=== PATIENT | male | born 1990 | race Caucasian/White ===

== ENCOUNTER 2016-10-07 12:19 | Emergency (ER) | payer OTHER ==
[2016-10-07 12:27] VITALS: BP 152/95; PULSE 113; RESP 20; TEMP 99.1; O2SAT 98
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
== END 2016-10-07 14:46 | disposition home or self-care (01) ==
LOC: CED 12:19
DX: G89.18 Other acute postprocedural pain (principal); M79.604 Pain in right leg; F17.200 Nicotine dependence, unspecified, uncomplicated
CPT/HCPCS: 93971-PO

== ENCOUNTER 2016-10-13 18:17 | Emergency (ER) | payer OTHER | END 2016-10-13 18:25 | disposition left against medical advice (07) | LOC: CED 18:17 | DX: Z53.21 Procedure and treatment not carried out due to patient leaving prior to being seen by health care provider (principal) ==

== ENCOUNTER 2017-08-08 02:43 | Observation (INO) | payer OTHER, MEDICAID ==
[2017-08-08 03:18] LABS: PLATELET COUNT 311 10^3/uL (150-400)
[2017-08-08] MEDS: NS 1,000 ML IV SCH (04:28)
--- NOTE | 2017-08-08 06:05 | EDPHY ---
H & P Stated Complaint: SELF INFLICTED LACS TO L FA X 4 DEEP Time Seen by Provider: 08/08/17 02:55 HPI/ROS: HPI The patient presents with self-inflicted lacerations to left forearm which occurred about 30 min prior to arrival. The patient cut himself 5 times with what is described as a non serrated knife. He did this because he wanted to "save himself". He has sustained several deep lacerations that are bleeding, family suspects he lost about 500 mL of blood prior to arrival. He currently denies any numbness, tingling of his hand. He does say it is difficult to flex his wrist and requires a lot of effort. His family reports that they believe he is currently suffering from psychosis related to his underlying schizoaffective disorder and provoked by marijuana use. He has a history of cutting previously under similar circumstances. He has been hospitalized at the [facility] previously. He resided at [facility] for several weeks in the past. He currently is receiving ECT. The patient denies any suicidality or homicidality. REVIEW OF SYSTEMS Constitutional: No fever, no chills. Eyes: No discharge. ENT: No sore throat. Cardiovascular: No chest pain, no palpitations. Respiratory: No cough, no shortness of breath. Gastrointestinal: No abdominal pain, no vomiting. Genitourinary: No hematuria. Musculoskeletal: No back pain. Skin: No rashes. Neurological: No headache. PMHx: Schizoaffective disorder, bipolar type, receiving ECT Soc Hx: Lives at home with his parents PHYSICAL General Appearance: Alert, no distress Eyes: Pupils equal and round no pallor or injection ENT, Mouth: Mucous membranes moist Respiratory: There are no retractions, lungs are clear to auscultation Cardiovascular: Regular rate and rhythm, 2+ radial and ulnar pulses on the left Gastrointestinal: Abdomen is soft and non-tender, no masses, bowel sounds normal Neurological: A&O, there is sensation intact to light touch throughout all of his digits on the left, strength is full in ulnar, median, radial nerve distributions Skin: Warm and dry, no rashes Musculoskeletal: Neck is supple non tender Extremities: Left forearm flexor surface with 5 transverse laceration, 1 involving multiple flexor tendon complete lacerations, 2 involving the fascial layer and muscle bellies, there is limited flexion at the wrist Psychiatric: Patient is oriented X 3, there is no agitation Source: Patient, Family Exam Limitations: No limitations - Personal History Current Tetanus Diphtheria and Acellular Pertussis (TDAP): Yes Tetanus Vaccine Date: < 10 YEARS - Medical/Surgical History Hx Asthma: No Hx Chronic Respiratory Disease: No Hx Diabetes: No Hx Cardiac Disease: No Hx Renal Disease: No Hx Cirrhosis: No Hx Alcoholism: No Hx HIV/AIDS: No Hx Splenectomy or Spleen Trauma: No Other PMH: BIPOLAR DO, SCHIZOAFFECTIVE, SX R TIB FIB 2017 - Social History Smoking Status: Current every day smoker Constitutional: Initial Vital Signs Temperature (C) 36.3 C 08/08/17 03:02 Heart Rate 71 08/08/17 03:02 Respiratory Rate 16 08/08/17 03:02 Blood Pressure 157/96 H 08/08/17 03:02 O2 Sat (%) 98 08/08/17 03:02 O2 Delivery Mode Room Air Allergies/Adverse Reactions: ketamine Allergy (Verified 06/15/17 10:32) nausea/vomiting morphine Allergy (Verified 06/15/17 10:32) psychosis oxycodone Allergy (Verified 06/15/17 10:32) psychosis Home Medications: Medication Instructions Recorded LaMICtal 300 mg PO DAILY 10/07/16 [place] Carbonate 1,350 mg PO DAILY AT 6PM 10/07/16 Loxapine 50 mg PO HS 10/07/16 Folate 1 tab PO DAILY 06/12/17 Medical Decision Making Differential Diagnosis: This is a 26-year-old male with history of schizoaffective disorder, bipolar type, currently receiving ECT in on medication who presents with what appears to be psychosis in the setting of marijuana use, subsequently cutting his left forearm multiple times causing significant trauma, with flexor tendon lacerations and facial injuries. He does appear to be neurovascularly intact. His limited strength of wrist flexion seems to be due to flexor tendon injury. I examined the patient on arrival to the emergency department. A pressure dressing was applied. He did have some blood oozing from his 2 most proximal lacerations which improved after the dressing was placed. Given the involvement of the flexor tendons in the extensive surface area of these lacerations, I initially discussed the case with Dr. Lurdes Phillip of Trauma surgery. She recommends consult with Orthopedics. I consulted with Dr. Harry the orthopedist pinion staker. He is able to take the patient to the OR later today. He recommends that we apply a dressing and give the patient Ancef. It would be difficult to irrigate these wounds in the emergency department and provide adequate anesthesia given their size. He will take the patient on his service. I have placed the patient on an M1 hold. I have explained this to the patient and his parents. He will need to go to the ICU for observation given his M1 hold. Parents feel strongly that he be admitted to [facility]. He has received excellent care there before and is very comfortable there. They would prefer that he does not have to go to [facility] as he is not always had a positive experience there. - Data Points Laboratory Results: Laboratory Results 08/08/17 02:56 08/08/17 02:56 08/08/17 08/08/17 08/08/17 02:56 02:56 02:56 WBC 11.58 10^3/uL H 10^3/uL (3.80-9.50) RBC 4.93 10^6/uL 10^6/uL (4.40-6.38) Hgb 14.7 g/dL g/dL (13.7-17.5) Hct 43.2 % % (40.0-51.0) MCV 87.6 fL fL (81.5-99.8) MCH 29.8 pg pg (27.9-34.1) MCHC 34.0 g/dL g/dL (32.4-36.7) RDW 13.2 % % (11.5-15.2) Plt Count 311 10^3/uL 10^3/uL (150-400) MPV 10.1 fL fL (8.7-11.7) Neut % (Auto) 75.7 % H % (39.3-74.2) Lymph % (Auto) 15.6 % % (15.0-45.0) [place] % (Auto) 7.0 % % (4.5-13.0) Eos % (Auto) 0.8 % % (0.6-7.6) Baso % (Auto) 0.3 % % (0.3-1.7) Nucleat RBC Rel Count 0.0 % % (0.0-0.2) Absolute Neuts (auto) 8.76 10^3/uL H 10^3/uL (1.70-6.50) Absolute Lymphs (auto) 1.81 10^3/uL 10^3/uL (1.00-3.00) Absolute Monos (auto) 0.81 10^3/uL H 10^3/uL (0.30-0.80) Absolute Eos (auto) 0.09 10^3/uL 10^3/uL (0.03-0.40) Absolute Basos (auto) 0.04 10^3/uL 10^3/uL (0.02-0.10) Absolute Nucleated RBC 0.00 10^3/uL 10^3/uL (0-0.01) Immature Gran % 0.6 % % (0.0-1.1) Immature Gran # 0.07 10^3/uL 10^3/uL (0.00-0.10) Sodium 141 mEq/L mEq/L (135-145) Potassium 3.9 mEq/L mEq/L (3.5-5.2) Chloride 103 mEq/L mEq/L (97-110) Carbon Dioxide 23 mEq/l mEq/l (22-31) Anion Gap 15 mEq/L mEq/L (8-16) BUN 13 mg/dL mg/dL (7-23) Creatinine 0.8 mg/dL mg/dL (0.7-1.3) Estimated GFR > 60 Glucose 91 mg/dL mg/dL (70-100) Calcium 10.4 mg/dL mg/dL (8.5-10.4) Total Bilirubin 0.5 mg/dL mg/dL (0.1-1.4) AST 25 IU/L IU/L (17-59) ALT 43 IU/L IU/L (21-72) Alkaline Phosphatase 161 IU/L H IU/L (38-126) Total Protein 7.7 g/dL g/dL (6.3-8.2) Albumin 5.0 g/dL g/dL (3.5-5.0) [place] 1.0 mEq/L mEq/L (0.6-1.2) Ethyl Alcohol < 10 mg/dL mg/dL (0-10) Patient ABO/Rh A NEGATIVE Antibody Screen NEGATIVE Medications Given: Sodium Chloride (Ns) 1,000 mls @ 125 mls/hr IV CONT OSEAS Stop: 02/04/18 04:14 Last Admin: 08/08/17 04:28 Dose: 1,000 mls Discontinued Medications Cefazolin Sodium/Dextrose (Ancef 1 Gm (Premix)) 50 mls @ 200 mls/hr IV EDNOW ONE PRN Reason: Protocol Stop: 08/08/17 04:04 Last Admin: 08/08/17 04:20 Dose: 50 mls Departure - Departure Disposition: [facility] Inpatient Acute Clinical Impression: Acute psychosis, Self-inflicted injury, Marijuana abuse Forearm laceration involving tendon Qualifiers: Encounter type: initial encounter Laterality: left Qualified Code(s): S51.812A - Laceration without foreign body of left forearm, initial encounter; S56.922A - Laceration of unspecified muscles, fascia and tendons at forearm level, left arm, initial encounter; S56.922A - Laceration of unspecified muscles, fascia and tendons at forearm level, left arm, initial encounter Condition: Fair
[2017-08-08] MEDS ORDERED: KETOROLAC 30 MG/1 ML SDV IVP PRN (08:14)
[2017-08-08] MEDS ORDERED: ONDANSETRON 4 MG/2 ML VIAL IVP PRN ×2 (08:27→18:54)
[2017-08-08] MEDS ORDERED: ONDANSETRON DISINTEGRATING 4 MG TAB PO PRN (08:27)
[2017-08-08] MEDS ORDERED: HYDROmorphONE/DILAUDID 1 MG/ML INJ IVP PRN (08:27)
[2017-08-08] MEDS ORDERED: ACETAMINOPHEN 325 MG TAB PO PRN (08:27)
[2017-08-08] MEDS ORDERED: LR 1,000 ML IV SCH (08:30)
--- NOTE | 2017-08-08 15:42 | ASMTCASEMG ---
Living Arrangements What is your living Answers: WIth Both Parents/1 Home arrangement? Who do you live with? Type Of Residence What kind of residence do Answers: House you live in? Discharge Plan Comments Coordination Status Comments Notes: Patient is a 26yo single male who lives at home with his parents. Patient has a hx of Bipolar and Schizoaffective Disorder, as well as a hx of "cutting". Patient presented with self inflicted lacerations to the left forearm which occurred approx. 30 minutes prior to arrival to the ED. Patient's family reports they believe he is currently suffering from psychosis related to his underlying schizoaffective disorder and his use of marijuana is provoking the psychosis. Patient will need a TLC eval. Patient has resided at [facility] for several weeks in the past. CM available for consult. Date Signed: 08/08/2017 03:42 PM Electronically Signed By:Edith Crain LCSW
[2017-08-08] MEDS ORDERED: BUPIVACAINE 0.5% 30 ML SDV ONE (16:44)
[2017-08-08] MEDS ORDERED: BACITRACIN 50,000 UNITS/10 ML SYR IRR ONE ×2 (16:44→17:57)
--- NOTE | 2017-08-08 17:10 | PDHPUP ---
History & Physical Update H&P update statement: This history and physical update is based on an assessment of the patient which was completed after admission or registration (within 24 hours), but prior to the surgery/procedure. H&P update: H&P reviewed & patient examined, no change in patient's condition since H&P completed
[2017-08-08] MEDS ORDERED: PROPOFOL/EMULSION 500 MG/50 ML BOTTLE IV ONE ×3 (17:45→18:38)
[2017-08-08] MEDS ORDERED: RANITIDINE 50 MG/2 ML VIAL ONE (18:11)
[2017-08-08] MEDS ORDERED: ONDANSETRON 4 MG/2 ML VIAL ONE (18:11)
[2017-08-08] MEDS ORDERED: PHENYLEPHRINE 10 MG/ML SDV ONE (18:22)
[2017-08-08] MEDS ORDERED: ceFAZolin 1 GM VIAL ONE ×2 (18:23)
[2017-08-08] MEDS ORDERED: DEXAMETHASONE 4 MG/ML VIAL IVP PRN (18:54)
[2017-08-08] MEDS ORDERED: NALOXONE HCL 0.4 MG/ML INJ IVP PRN (18:54)
--- NOTE | 2017-08-08 18:59 | PDANEPAE ---
ANE History of Present Illness Left Arm Laceration Exploration and I&D ANE Past Medical History - Cardiovascular History Hx Hypertension: No Hx Arrhythmias: No Hx Chest Pain: No Hx Coronary Artery / Peripheral Vascular Disease: No Hx Palpitations: No - Pulmonary History Hx Oxygen in Use at Home: No Hx Sleep Apnea: No Sleep Apnea Screening Result - Last Documented: Negative - Neurologic History Hx Cerebrovascular Accident: No - Endocrine History Hx Diabetes: No - Renal History Hx Renal Disorders: No - Liver History Hx Hepatic Disorders: No - Cancer History Hx Cancer: No - Chronic Pain History Chronic Pain: No - Surgical History Prior Surgeries: Fracture repair of left femur ANE Review of Systems Review of Systems: - Exercise capacity Exercise capacity: >=4 METS ANE Patient History - Allergies Allergies/Adverse Reactions: ketamine Allergy (Verified 06/15/17 10:32) nausea/vomiting morphine Allergy (Verified 06/15/17 10:32) psychosis oxycodone Allergy (Verified 06/15/17 10:32) psychosis - Home Medications Home Medications: [place] Carbonate ER [Eskalith Cr 450 mg (*)] 1,350 mg PO HS 10/07/16 [Last Taken 08/07/17] Loxapine Succinate [Loxapine 50 mg (*)] 50 mg PO HS 10/07/16 [Last Taken ] lamoTRIgine [LamICTAL 100 MG (*)] 200 mg PO HS 10/07/16 [Last Taken 08/07/17] Deplin 15mg 15 mg PO HS 08/08/17 [Last Taken 08/07/17] - NPO status NPO Since - Liquids (Date): 08/08/17 NPO Since - Liquids (Time): 07:30 NPO Since - Solids (Date): 08/08/17 NPO Since - Solids (Time): 07:30 - Smoking Hx Smoking Status: Current every day smoker - Family Anes Hx Family Hx Anesthesia Complications: None ANE Labs/Vital Signs - Labs Result Diagrams: 08/08/17 02:56 08/08/17 02:56 - Vital Signs Blood Pressure: 119/74 Heart Rate: 70 Respiratory Rate: 14 O2 Sat (%): 95 Height: 180.34 cm Weight: 74.843 kg ANE Physical Exam - Airway Neck exam: FROM Mallampati Score: Class 2 Mouth exam: normal dental/mouth exam - Pulmonary Pulmonary: clear to auscultation - Cardiovascular Cardiovascular: regular rate and rhythym - ASA Status ASA Status: II ANE Anesthesia Plan Anesthesia Plan: GA w LMA
[2017-08-08] MEDS ORDERED: PROPOFOL 200 MG/20 ML VIAL ONE ×2 (19:33→19:57)
[2017-08-08] MEDS ORDERED: HYDROGEN PEROXIDE 236 ML BOTTLE TP ONE (19:35)
--- NOTE | 2017-08-08 20:24 | GCON ---
[f rep st] CONSULTATION DATE OF CONSULTATION: 08/08/2017 REASON FOR CONSULTATION: Left forearm lacerations. This is a consultation for the ER staff. CHIEF COMPLAINT: Left forearm lacerations. HISTORY OF PRESENT ILLNESS: This is a 26-year-old male who presented to the ER with superficial lace rations to his left forearm. He cut himself with a knife. He stated that he wanted to "save himself ." He denies any numbness and tingling in the hand. Endorses difficulty flexing the wrist. Patient has a history of schizoaffective disorder with current psychosis, per his parents. He has been hosp italized at the [facility] in the past. He has also resided at the [facility] in the past. He is currently under ECT treatment. Per the ER note, he was denying suici dality in the ER. REVIEW OF SYSTEMS: A 10-point review of systems is negative except as noted above. PAST MEDICAL HISTORY: Schizoaffective disorder, bipolar type. SOCIAL HISTORY: He lives at home with his parents. PHYSICAL EXAMINATION: GENERAL: He was alert and oriented, in no distress, lying in a stretcher. MU SCULOSKELETAL: Left Forearm: There are 5 transverse lacerations across the forearm ranging from abo ut 4 to 7 cm in length. There is visible tendon from one of the more distal lacerations. Examinatio n of the tendon function in the hand reveals intact FDS, FDP to all digits. Intact FPL. He has diff iculty flexing his wrist beyond neutral without radial ulnar deviation of the wrist. He is able to e xtend all the fingers and the wrist with some pain in the forearm when he attempts hyperextension. H e has intact 2 point at 6 mm to all distributions. His hand is well perfused. ASSESSMENT AND PLAN: Left forearm lacerations with probable injury to the wrist flexors. The finger flexors appear intact. He does not appear to have nerve injury. Due to the extent of injury, I tiarra n on taking the patient to the operating room for exploration of the wound irrigation and debridement , and repair of any damaged structures. I did speak with the ER staff, that under the circumstances, we recommend irrigation and Ancef. He was given Ancef, however, the ER staff felt that he would not tolerate irrigation, and he was given a pressure dressing. The patient will be admitted under my se rvice under a psych hold. After surgery, I will consult with the mental health team about possible t ransfer versus discharge with his family. /[id number]/MODL
--- NOTE | 2017-08-08 21:08 | POSTANESTH ---
Post Anesthetic Evaluation Cardiovascular Status: Normal, Stable Respiratory Status: Normal, Stable Level of Consciousness/Mental Status: Moderately Sleepy Pain Control: Adequate, Prn Tx Ordered Nausea/Vomiting Control: Adequate, Prn Tx Ordered
[2017-08-08] MEDS ORDERED: PHENYLEPHRINE HCL 100 MCG/ML SYR ONE (21:47)
[2017-08-08] MEDS ORDERED: ceFAZolin 2 GM/SWFI 2 GM/20 ML SYR IVP ONE (21:53)
[2017-08-08] MEDS ORDERED: ceFAZolin 2 GM/DEXTROSE 100 ML IV SCH (22:00)
[2017-08-08] MEDS ORDERED: PHENYLEPHRINE HCL 100 MCG/ML SYR IVP PRN (22:37)
[2017-08-09] MEDS: NS 1,000 ML IV SCH (00:30)
[2017-08-09] MEDS: DEXMEDETOMIDINE HCL 400 MCG in NS 100 ML IV SCH ×2 (01:15→05:52)
[2017-08-09] MEDS: ceFAZolin 2 GM/SWFI 2 GM/20 ML SYR IVP SCH ×2 (03:22→09:19)
--- NOTE | 2017-08-09 06:52 | GOP ---
[f rep st] OPERATIVE REPORT DATE OF OPERATION: SURGEON: Dequan Harry MD ANESTHESIA: General. PREOPERATIVE DIAGNOSIS: Left forearm laceration, 5 lacerations, each measuring about 5 cm each and p ossible flexor tendon injury. POSTOPERATIVE DIAGNOSIS: 1. Left forearm laceration, 5 lacerations, each measuring about 5 cm each and possible flexor tendon injury. 2. Complete laceration of flexor carpi radialis. 3. Complete laceration of palmaris longus. 4. A 70% laceration of the flexor digitorum superficialis common tendon and muscle belly. PROCEDURE PERFORMED: 1. Irrigation and debridement of multiple left forearm wounds. These were 5 wounds measuring roughl y 5 cm each in length. 2. Repair of flexor carpi radialis complete laceration. 3. Repair of palmaris longus complete laceration. 4. Repair of flexor digitorum superficialis 70% laceration of the common tendon muscle belly. 5. Complex wound closure of left forearm wounds measuring a total of 25 cm. FINDINGS: ESTIMATED BLOOD LOSS: 10 cc. INDICATIONS: This is a 26-year-old male who presented to the emergency department after he sustained self-inflicted wounds. The patient has schizoaffective disorder. He lives with his parents. Per h is parents he has recently been having increased psychosis, which has corresponded to increased marij uana use. He was seen and evaluated by the ER staff. Ancef was given. I was consulted. My recomme ndation was to irrigate the wound. However, the staff felt that he would not tolerate this. Thus I evaluated the patient in the morning. He had complex wounds that would require their exploration and closure in the operating room and on examination he had intact function of the finger flexors. Martinez davide, he was not able to flex the wrist indicating likely laceration of 1 of the wrist flexors. He al so had visible lacerated tendon from his lacerations. Thus with complex wounds and flexor laceration operative management is indicated. I discussed with him and his parents the risks and benefits of s urgery and risks include bleeding, infection, damage to surrounding structures, tendon rupture, wound healing complications, stiffness, weakness, need for further surgeries. He understood the risks and wished to proceed. DESCRIPTION OF PROCEDURE: The patient was seen in preoperative holding area. He was given opportuni ty to ask any questions. All of his questions were answered. Consent was signed. Surgical site was marked. He was transferred to the operative suite. Care was taken to transfer the patient from the [facility] to the operating room table. Care was taken to pad all bony prominences prior to induction o f anesthesia. General anesthesia was induced by the anesthesia team. Time-out was called including surgical and anesthesia teams confirming the surgical site and procedure to be performed. The left u pper extremity was prepped and draped in the usual sterile fashion. Esmarch was used to exsanguinate the left lower extremity. Tourniquet was inflated to 250 mmHg. I first performed the irrigation po rtion of the procedure. I copiously irrigated with about 6 L of sterile saline. After irrigation, e xamined the wound. These were straight lacerations, clean and cut with a sharp knife. The extent of the most distal laceration as this was where most of his tendon where the tendons were seen on explo ration from the above-mentioned tendon lacerations. Apart from that, his radial artery was intact. His median nerve was intact. His ulnar nerve was intact. His ulnar artery was intact. The brachior adialis was intact. The EC flexor carpi ulnaris was intact. The finger flexors were intact. After this was verified I retrieved the proximal portion of the FCR tendon and the palmaris longus tendon. I began my procedure with the repair of the FDS. This was a laceration where the muscular tendinous junction where it has a common tendon. I repaired this with several emnrti-cn-qkuyl stitches with # 4 FiberWire, so I was very happy with the repair and turned my attention to the palmaris longus repai r. This was repaired with a yebncq-yq-quyzw cruciate. I was very happy with this repair and I turne d my attention to the FCR repair. I used an 0 Vicryl suture to pull tendon in and then I used a cara fied Stevenson and then after this was done, I ran a locking stitch with a 4-0 FiberWire. I was happy with this repair as well. He had good tendon glide with wrist and finger motion. He also had a part ial muscle belly laceration of the FDS that was repaired with several ndjuae-tu-diidg 0 Vicryl. Afte r this was done, I then turned my attention to the complex wound repair, closed the wound layers with 3-0 Monocryl deep layers and then running either 3-0 nylon or 4-0 nylon. There were several areas w ith jagged ledges in various thin skin bridges that distally he lacerated his wrist that may have con cern for future compromise or lack of perfusion. A sterile dressing was then applied. The patient p laced in a dorsal block splint. He was awakened from general anesthesia in stable condition and take n to the PACU in stable condition. POSTOPERATIVE CONDITION: Stable. POSTOPERATIVE PLAN: The patient will be readmitted to my service. He is under an M1 hold for his schmid icide attempt. He will be seen by the mental health team and further action will be determined by louise bai. I will have him follow up with the hand therapist as soon as possible to begin a flexor tendon t ype protocol and he will see me in the office periodically. /[id number]/MODL
--- NOTE | 2017-08-09 07:52 | SOAPPROG ---
SOAP Progress Note Assessment/Plan: Assessment:POD#1 s/p L FA lac repair and repair of FCR, PL, FDS -doing well, hypotensive last night but not symptomatic and Hgb wnl Plan: -Rx for hand therapy after d/c -The patient is stable for discharge from in care after his surgical procedure. -rica ROBERTO 08/09/17 07:49 Subjective: Doing well this am. Minimal pain. Denies any lightheadedness. Objective: Vital Signs Temp Pulse Resp BP Pulse Ox 36.9 C 53 L 15 91/42 L 96 08/08/17 22:00 08/09/17 07:00 08/09/17 07:00 08/09/17 07:00 08/09/17 07:00 Laboratory Results 08/09/17 05:30 08/08/17 08/09/17 08/10/17 05:59 05:59 05:59 Intake Total 4963 Output Total 2550 700 Balance 2413 -700 Gen: NAD, lying in bed LUE -splint in place -flexing all fingers -SILT -fingers well perfused - Time Spent With Patient Time Spent With Patient: 10m - Pending Discharge Pending Discharge Within 24 Hours: Yes Pending Discharge Date: 08/10/17 Pending Discharge Time: 11:00 ICD10 Worksheet Patient Problems: Problems Problem Status Onset Acute psychosis Acute Forearm laceration involving tendon Acute Marijuana abuse Acute Self-inflicted injury Acute
[2017-08-09 09:10] VITALS: BP 109/69; PULSE 59; RESP 14; TEMP 98.3; O2SAT 99
[2017-08-09] MEDS ORDERED: LOXAPINE SUCCINATE 50 MG CAP PO ONE (12:00)
--- NOTE | 2017-08-09 12:38 | GCON ---
[f rep st] CONSULTATION CRITICAL CARE CONSULTATION DATE OF CONSULTATION: 08/09/2017 REASON FOR CONSULTATION: Self-inflicted knife wounds to the left arm. HISTORY: The patient is a 26-year-old with a history of schizoaffective disorder. He cut himself with a knife 5 times in the left forearm in order to "save himself." He was not suicidal and denies suicidal ideation. He was bleeding relatively heavily. His family reported approximately 500 mL estimated blood loss prior to arrival. He did not sever any nerves. He did sever some tendons. He was taken to the operating room yesterday by Dr. Harry and surgical repair of the lacerations and of the flexor carpi radialis and the palmaris longus and of the flexor digitorum superficialis. Debridement and wound closure were accomplished. There was minimal blood loss. He has no other medical problems. He was returned to the intensive care unit on an M1 hold. His arm is splinted and dressed. There are no further orthopedic issues at this time and he is medically clear, He will need orthopedic followup in 2 weeks. PAST MEDICAL HISTORY: Remarkable primarily for his schizoaffective disorder. MEDICATIONS ON ADMISSION: Included Deplin 15 mg per day, Lamictal 200 mg at bedtime, lithium 1350 mg at bedtime and loxapine 50 mg at bedtime. He does have a local psychiatrist, Catherine Kemp MD. He also sees Gomez Lopez MD for the ECT treatments. He has been receiving these every 6 weeks. He was admitted to Behavioral Health 7 years ago and reportedly did not have a great experience there on discharge. SOCIAL HISTORY: The patient currently is living with his parents. He had been at [facility] previously and there is a bed available for him there next Sunday. He smokes cigarettes, approximately 1/2 pack per day, and uses marijuana. Alcohol is denied. FAMILY HISTORY: Noncontributory. REVIEW OF SYSTEMS: A 10-point review of systems negative except as mentioned above. Drug allergies: Ketamine, morphine, oxycodone. PHYSICAL EXAMINATION: GENERAL: Reveals a gentleman who is sitting in the intensive care unit. He is in no distress. His left arm has a splint and is Gregg wrapped. VITAL SIGNS: Blood pressure is 110/70, heart rate is 65 with sinus rhythm on the monitor. Respiratory rate is 14. He is on room air. He is afebrile. HEENT: Unremarkable for lymphadenopathy or thyromegaly. LUNGS: Clear. HEART: Regular rate and rhythm. ABDOMEN: Soft, nontender. Bowel sounds are present. EXTREMITIES: Unremarkable with the exception of the wrapped left upper extremity. NEUROLOGIC: Neurologic examination and mentation appear intact. He does appear somewhat depressed/down and responses are appropriate but slow. LABORATORY: [place] level on admission was 1. White blood cell count today is 7300, hematocrit 32, platelets 174,000. Chemistries have been within normal limits. Tox screen on admission was negative except for marijuana. ASSESSMENT: 1. Severe schizoaffective disorder. 2. Self-inflicted left upper extremity knife wounds, status post surgical repair. 3. No definite evidence of suicide ideation at this time. 4. Acute blood-loss anemia. Hematocrit 32. PLAN: The patient has been medically cleared. My feeling is that he needs inpatient psychiatric evaluation. Behavioral Health/[facility] [place] would seem to be the best place for him. This was discussed with the patient and his father and with [facility]. Once disposition has been decided upon, he can be discharged as he is medically clear. He does not need further antibiotics per Orthopedics as his wounds are clean. It he is instructed to follow up with Orthopedics, Dr. Harry, in 2 weeks. He will see hand therapy on behavioral health. They will resplint him and look at his wounds. His usual psychiatric medications were not given during this hospitalization. They can be restarted per recommendations of Psychiatry on behavioral health. /[id number]/MODL MTDD
--- NOTE | 2017-08-09 13:22 | PDDCSUM ---
Discharge Summary Discharge Summary: Date of admission: 08/08/17 Data discharge: 08/09/2017 Discharge diagnoses 1. Severe schizoaffective disorder 2. Self-inflicted knife wounds to the left upper extremity 3. Acute blood-loss anemia Hospital course: The patient was admitted following self-inflicted wounds to his left upper extremity. He was not suicidal but was apparently delusional and trying to "save himself". This was secondary to his schizoaffective disorder and possibly to marijuana use. In any case, he required surgical repair of the wounds and tendons. There are no nerve injuries. The patient was kept overnight on an M1 hold in the intensive care unit. He was medically cleared the next day. He was seen by [facility] and an inpatient bed was arranged for him on special care [facility] [place] at the [facility]. Condition on discharge: Good Prognosis: Good Follow-up: Behavioral health. He is also to follow up with Orthopedics in 2 weeks for wound check and suture removal.
== END 2017-08-09 14:40 ==
LOC: EEVIPCON 04:02 → F2N 10:55
PROVIDERS: ADMIT Orthopaedic Surgery Hand Surgery; ATTEND Internal Medicine Pulmonary Disease
PROC: 0LQ60ZZ Repair Left Lower Arm and Wrist Tendon, Open Approach (ICD-10-PCS; principal; 2017-08-08 16:15)
PROC: 0JQH0ZZ Repair Left Lower Arm Subcutaneous Tissue and Fascia, Open Approach (ICD-10-PCS; principal; 2017-08-08 16:15)
DX: S56.0 Injury of flexor muscle, fascia and tendon of thumb at forearm level (principal); Y28.1XXA Contact with knife, undetermined intent, initial encounter; Y92.019 Unspecified place in single-family (private) house as the place of occurrence of the external cause; Y99.8 Other external cause status; D62 Acute posthemorrhagic anemia; F25.0 Schizoaffective disorder, bipolar type; F12.90 Cannabis use, unspecified, uncomplicated; F17.210 Nicotine dependence, cigarettes, uncomplicated
CPT/HCPCS: 80305; 96365; 97161-GP; 97166-GO; G0378; G0480; J0690; J2370; J2405; J2704; J2780

== ENCOUNTER 2017-08-09 15:10 | Inpatient (IN) | payer OTHER, MEDICAID ==
[2017-08-09] MEDS ORDERED: NICOTINE POLACRILEX 2 MG GUM B PRN (15:47)
[2017-08-09] MEDS ORDERED: ACETAMINOPHEN 325 MG TAB PO PRN (15:47)
[2017-08-09] MEDS ORDERED: MAGNESIUM HYDROXIDE 30 ML UDCUP PO PRN (15:47)
[2017-08-09] MEDS ORDERED: LORazepam 0.5 MG TAB PO PRN (15:47)
[2017-08-09] MEDS ORDERED: MAG HYDROX/AL HYDROX/SIMETH 30 ML UDCUP PO PRN (15:47)
[2017-08-09] MEDS ORDERED: OLANZapine DISINTEGR 5 MG TAB PO PRN (15:52)
--- NOTE | 2017-08-09 16:35 | BCON ---
[f rep st] [facility] CONSULTATION INTERNAL MEDICINE CONSULTATION DATE OF CONSULTATION: 08/09/2017 REFERRING PHYSICIAN: Dino Noriega MD REASON FOR REFERRAL: Medical clearance for inpatient the [facility] stay. HISTORY OF PRESENT ILLNESS: This patient came to the emergency department yesterday. He had self-inflicted lacerations to the right wrist, which had caused flexor tendon injuries. He was admitted to the hospital and had surgery with orthopedic surgeon, Dr. Harry with repair of the tendon injuries and repair of the lacerations. He was subsequently discharged to [facility] for further psychiatric care. Currently, he complains of feeling tired. He otherwise has no acute medical complaints. PAST MEDICAL HISTORY: 1. Schizoaffective disorder, bipolar type. 2. History of a tibial plateau fracture on the right leg in October of 2016. PAST SURGICAL HISTORY: He has had surgical repair of the tibial fracture. MEDICATIONS: 1. Deplin 15 mg p.o. at bedtime. 2. Lamotrigine 200 mg p.o. at bedtime. 3. Edmund 1350 mg p.o. at bedtime. 4. Loxapine 50 mg p.o. at bedtime. ALLERGIES: Listed to ketamine, morphine and oxycodone. SOCIAL HISTORY: He lives with his parents in [place], [place]. He is a regular marijuana user. 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 He is a tobacco smoker, and he has a history of alcohol use. FAMILY HISTORY: Noncontributory. REVIEW OF SYSTEMS: He is not in pain. He denies cough or dyspnea. He denies fevers or chills, and otherwise a 10-point review of systems is negative. PHYSICAL EXAMINATION: VITAL SIGNS: Vitals are not yet available. This morning at the hospital, blood pressure was 109/69, heart rate was 59, respiratory rate was 14, oxygen saturation was 99% on room air. Temperature was 36.8 degrees centigrade. His weight is 75.3 kg for a body mass index of 23.2. GENERAL: This is a well-nourished well-developed man who appears his chronologic age lying in bed, dressed in hospital clothes cooperative and in no acute distress HEENT: Extraocular movements are intact. Pupils are equal, round, reactive to light. Mucous membranes are moist. Dentition is in good condition. He has uncrowded airway, Mallampati class 2. NECK: Supple. HEART : Regular rate and rhythm with no murmurs, rubs, or gallops. LUNGS: Clear to auscultation bilaterally. ABDOMEN: Benign. EXTREMITIES: There is no cyanosis , clubbing, or edema, though the right forearm is in a splint and wrapped in an Gregg wrap. NEUROLOGIC: He is alert and oriented x3. Cranial nerves 2-12 are grossly intact. There is no focal weakness. Sensation is intact to light touch. LABORATORY STUDIES: From his recent hospitalization, CBC on admission showed an elevated white blood cell count at 11.58 with no left shift. Otherwise was normal, and CBC this morning showed anemia with a hemoglobin of 10.2 and hematocrit of 32. Serum chemistry was overall within normal limits including renal function, electrolytes, and liver functions, but for a slightly high alkaline phosphatase of 161, likely of no clinical significance. Toxicology in the serum was negative for ethyl alcohol. Edmund level was therapeutic at 1. Toxicology screen in the urine was non-negative for marijuana, but otherwise negative for substances of abuse. ASSESSMENT/RECOMMENDATIONS: 1. Mental health issues pending further evaluation and management per Psychiatry and the mental health team. 2. Right wrist lacerations, self-induced, status post surgical repair. He is to follow up in 2 weeks with Orthopedic Surgery for a recheck and suture removal. Orthopedic surgeon recommends initiating therapy with a PT hand specialist within a week for early mobilization. If he is to remain on the inpatient behavioral unit for as long as a week, then Physical or Occupational Therapy should be consulted while he is inpatient. There are no clear postoperative wound care instructions in the chart, so would advise that nursing staff contact Dr. Harry, the orthopedic surgeon for specific instructions regarding wound care. 3. Postoperative anemia in a healthy young man. We expect this to resolve spontaneously over time. He is not showing any signs or symptoms connected with the anemia. 4. Marijuana use disorder. He might benefit from specific substance abuse counseling. I see no medical contraindications to this patient's continued stay on the inpatient behavioral health unit or to any psychiatric medications or procedures. Thank you very much for including me in the care of this patient, and please do not hesitate to contact me or the hospitalist service should there be need for further medical evaluation. /[id number]/MODL MTDD
[2017-08-09] MEDS ORDERED: HYDROCODONE/APAP 5/325 TAB PO PRN (16:40)
[2017-08-09] MEDS: LITHIUM CARBONATE ER 450 MG TAB PO SCH (20:33)
[2017-08-09] MEDS: lamoTRIgine 100 MG TAB PO SCH (20:33)
[2017-08-09] MEDS ORDERED: LOXAPINE SUCCINATE 25 MG CAP PO SCH (21:00)
--- NOTE | 2017-08-10 15:28 | BAPA ---
[f rep st] ADMISSION PSYCHIATRIC ASSESSMENT IDENTIFYING DATA: This patient is a 26-year-old single white male who has been treated by this auto service writer with maintenance ECT for his schizoaffective disorder since 2010. He has been working with Catherine Perez MD at [facility]. Sources of information include the patient, who is at best a fair historian; as well as significant collateral information from his mother, with whom the auto service writer spoke by phone. The patient most recently has been working at a [employer] shop, although he does have a degree in finance from . HISTORY OF PRESENT ILLNESS: Please see the auto service writer's initial consultation dated 07/19/2010 and a further consultation dated 06/23/2016. The patient carries a diagnosis of schizoaffective disorder, bipolar type; and his mood and psychotic symptoms have historically proven refractory to medication. ECT has provided him the most robust and expedient relief of his symptoms. Over these last 7 years, he has been maintained with maintenance ECT with a sporadic use of increased frequency or even acute bouts when his symptoms have flared up. Presently, his symptoms are prominent auditory command hallucinations dictating that he must hurt himself lest "they would come and kill me." This command prompted him, in fact, to make a deep laceration in his upper extremity, requiring surgery for the tendon. He states that he was not trying to kill himself, but was brought to that action by the coaxing of these malignant hallucinations and out of fear of being murdered if he did not do what he did. In the wake of his action, he felt "hyped up," indicating that he felt fairly good in his mood and accomplished in that he had done this heroic thing to save himself. Even his voices expressed that they were impressed with his action and shared some pity for him. Now a few days later, they are back to coaxing him maliciously to hurt himself and critiquing him for only having made things worse. He does not feel that his mood is highly depressed, nor is he having egosyntonic suicidal ideation, but does admit that he can be compelled to dangerous degree of self-harm from acting on the command hallucinations. There is no present change in medical status or situational stressor that could be contributing to this relapse. However, he does acknowledge that he has been vastly increasing marijuana use and has been using it daily over the last 2-3 months. According to his mother, he does not feel that this is an addiction and does not necessarily see the connection between his use and an exacerbation of his psychosis. In fact, he would say that his use actually attenuates the symptoms that are always there. He does have a history of becoming dependent on marijuana and has been able to go months or even years absent of the drug, but is clearly unable to control his use once he restarts it. His present Martinez Depression Inventory Score is 12. Question #9 is 0, indicating absence of severe depressive symptoms. However, it is true for this patient that it is arguably an exacerbation of mood symptoms that intensifies and changes in a very malicious manner the quality of his psychosis. At baseline, he does continue to have less intense frequent and more qualitatively benevolent hallucinations that do not impair his functioning in any significant way. PRESENT MEDICATIONS: Lamictal 200 mg p.o. q.h.s., Eskalith 1350 mg p.o. q.h.s. , Ativan 0.5 mg q.6 hours p.r.n. anxiety, loxapine 50 mg p.o. q.h.s. PAST PSYCHIATRIC HISTORY, MEDICAL HISTORY, FAMILY HISTORY, SOCIAL HISTORY: Please see prior consultations. MENTAL STATUS EXAMINATION: The patient is a disheveled-appearing 26-year-old white male who appears his stated age. His affect is blunted, and mood is down , but not depressed. He does have psychomotor slowing versus bradykinesis from medication. Speech is monotone and slightly impoverished. There is some subtle impairment in relatedness. Focus, concentration and short-term memory are subjectively impaired. Thought processes are goal-directed. Thought content is positive for auditory hallucinations that are command in nature. He denies any egosyntonic desire to , but does acknowledge that acting on the voices as he did could have been lethal. His insight, especially into his substance use, is poor; judgment likewise. Impulse control around self-harm given the recent events is extremely limited. FIVE AXIS DIAGNOSIS: [place] I: Schizoaffective disorder, bipolar type. History of marijuana use disorder, severe. [place] II: Deferred. [place] III: Noncontributory. [place] IV: Moderate. [place] V: 35. IMPRESSION AND RECOMMENDATION: Acutely, this patient would benefit from acute electroconvulsive therapy as he has historically. I have left a voicemail with Dr. Perez, asking also about whether she agrees that I should increase his loxapine temporarily or whether she has other medication ideas. I will also check lithium and Lamictal level. Presuming that course of acute treatments and /or change in medications improve his psychotic and, arguably, his mood symptomatology, the next high priority is to address his marijuana use disorder , which has clearly put him in this exacerbated state. I will speak with patient and mother at greater length, but we have discussed the possibility of inpatient rehab on one extreme to the less restricted arrangement of outpatient care, which could include CD-IOP, NA attendance, random urine drug testing, and perhaps therapy with a chemical abuse counselor who could, through the use of motivational interviewing, increase his insight and understanding about the need to remain fully clean and sober. Thankfully, he is staying in his parent' s home. I have counseled his mother to try to remove any drug or paraphernalia from their home so that when he gets back home he does not have easy access. He will likely need wound care, which is further rationale for his staying on an inpatient behavioral health unit adjacent to an inpatient rehab unit that can help provide such care. The patient and mother both agree, and Layton provided I/C, to restart acute ECT understanding its R/B/A. /[id number]/MODL MTDD
[2017-08-10] MEDS: LITHIUM CARBONATE ER 450 MG TAB PO SCH (18:55)
[2017-08-10] MEDS: lamoTRIgine 100 MG TAB PO SCH (18:55)
[2017-08-10] MEDS ORDERED: LOXAPINE SUCCINATE 50 MG CAP PO SCH (21:00)
[2017-08-10] MEDS ORDERED: LOXAPINE SUCCINATE 25 MG CAP PO SCH (21:00)
--- NOTE | 2017-08-11 16:11 | SOAPPROG ---
SOAP Progress Note Assessment/Plan: Assessment: 26yo SWM with Schizoaffective d/o and hx of ECT maintenance since 2010, presented with incr CAH in setting of incr THC use, causing himself to cut forearm and lacerate a tendon, s/p surgical repair 08/11/17 16:10 slept 9.5hr. pt was calm, cooperative, fair/good EC, casually dressed, nml speech rate/vol, mood "today, good...I kept busy". attending groups. parents visited today. +AH but not command, and notes decr intensity and back to normal "nature" of his AH which he reports is non-command, and "just commentary". T/a cutting arm b/c AH told him to in order to save himself. Not in response to SI. Denied current SI, no thoughts to harm others. i/j seem intact. cognition conversationally intact. denies med s/e or any other complaints. denies LUE pain. wearing splint over bandaged forearm. discussed medication options as recommended by Dr. Lopez, incl consider incr Loxapine. pt would like this option, stating he is still bothered by his "grave concerns about what others have done in response" to lacerating arm. states he did not show anyone, but took photos, and still remains concerned somehow others have seen or know about the photos. PLAN: incr Loxapine to 75mg qhs. pt planning on acute course ECT this week as d/w primary psychiatrist. f/u with surgery in 2 wks as per recommendations noted, this week with OT Objective: Vital Signs Temp Pulse Resp BP Pulse Ox 36.3 C 69 14 119/62 98 08/11/17 06:00 08/11/17 06:00 08/11/17 06:00 08/11/17 06:00 08/11/17 06:00 - Time Spent With Patient Time Spent With Patient: 35min - Pending Discharge Pending Discharge Within 24 Hours: No Pending Discharge Within 48 Hours: No ICD10 Worksheet Patient Problems: Problems Problem Status Onset Acute psychosis Acute Forearm laceration involving tendon Acute Marijuana abuse Acute Self-inflicted injury Acute
[2017-08-11] MEDS: lamoTRIgine 100 MG TAB PO SCH (20:27)
[2017-08-11] MEDS: LITHIUM CARBONATE ER 450 MG TAB PO SCH (20:27)
[2017-08-11] MEDS: LOXAPINE SUCCINATE 25 MG CAP PO SCH (20:27)
[2017-08-12] MEDS: LITHIUM CARBONATE ER 450 MG TAB PO SCH (19:24)
[2017-08-12] MEDS: lamoTRIgine 100 MG TAB PO SCH (19:24)
[2017-08-12] MEDS: LOXAPINE SUCCINATE 25 MG CAP PO SCH (19:26)
--- NOTE | 2017-08-13 01:10 | SOAPPROG ---
SOAP Progress Note Assessment/Plan: Assessment: Plan: Objective: Vital Signs Temp Pulse Resp BP Pulse Ox 36.3 C 60 14 111/61 98 08/11/17 06:00 08/12/17 05:30 08/12/17 05:30 08/12/17 05:30 08/12/17 05:30 ICD10 Worksheet Patient Problems: Problems Problem Status Onset Acute psychosis Acute Forearm laceration involving tendon Acute Marijuana abuse Acute Self-inflicted injury Acute
--- NOTE | 2017-08-13 01:34 | SOAPPROG ---
SOAP Progress Note Assessment/Plan: Assessment: 26yo SWM with Schizoaffective d/o and hx of ECT maintenance since 2010, presented with incr CAH in setting of incr THC use, causing himself to cut forearm and lacerate a tendon, s/p surgical repair 08/11/17 16:10 slept 9.5hr. pt was calm, cooperative, fair/good EC, casually dressed, nml speech rate/vol, mood "today, good...I kept busy". attending groups. parents visited today. +AH but not command, and notes decr intensity and back to normal "nature" of his AH which he reports is non-command, and "just commentary". T/a cutting arm b/c AH told him to in order to save himself. Not in response to SI. Denied current SI, no thoughts to harm others. i/j seem intact. cognition conversationally intact. denies med s/e or any other complaints. denies LUE pain. wearing splint over bandaged forearm. discussed medication options as recommended by Dr. Lopez, incl consider incr Loxapine. pt would like this option, stating he is still bothered by his "grave concerns about what others have done in response" to lacerating arm. states he did not show anyone, but took photos, and still remains concerned somehow others have seen or know about the photos. PLAN: incr Loxapine to 75mg qhs. pt planning on acute course ECT this week as d/w primary psychiatrist. f/u with surgery in 2 wks as per recommendations noted, this week with OT 08/12/17 14:25 slept 8.5hr no new concerns. tolerated incr Loxapine well. denied s/e. thinks wound may be weeping some. parents (and nsg staff) have bandage changing concerns (when, since still with original bandages). pt with no c/o pain. speech nml rate/vol. mood "fine", affect restricted/flattened. reports baseline AH still present, which never go away. no CAH. denied any SI. linear responses to questions. no overt delusions. still with paranoia. feels incr medication helped decrease "surveillance concerns". denied VH. motivated for ECT as planned starting tomorrow. family supportive. -staff paged surgeon who operated on this pt. I spoke with him. He had no concerns for dressing change, altho if desired, can do so now several days out. splint important, as wearing, and OT f/u important and should be involved early this week. surgeon also t/w RN Conrado -bird Loxapine 75mg, and other meds as before, also ECT planned for this week Objective: Vital Signs Temp Pulse Resp BP Pulse Ox 36.3 C 60 14 111/61 98 08/11/17 06:00 08/12/17 05:30 08/12/17 05:30 08/12/17 05:30 08/12/17 05:30 - Time Spent With Patient Time Spent With Patient: 25min parents also present visiting - Pending Discharge Pending Discharge Within 24 Hours: No Pending Discharge Within 48 Hours: No ICD10 Worksheet Patient Problems: Problems Problem Status Onset Acute psychosis Acute Forearm laceration involving tendon Acute Marijuana abuse Acute Self-inflicted injury Acute
[2017-08-13] MEDS ORDERED: CITRIC ACID/SODIUM CITRATE 30 ML UDCUP PO PRN (04:00)
[2017-08-13] MEDS ORDERED: ONDANSETRON DISINTEGRATING 4 MG TAB PO PRN (04:00)
[2017-08-13] MEDS ORDERED: NS 1,000 ML IV PRN (04:00)
[2017-08-13] MEDS ORDERED: NALOXONE HCL 0.4 MG/ML INJ IVP PRN (13:16)
[2017-08-13] MEDS ORDERED: HYDROCODONE/APAP 5/325 TAB PO PRN (13:16)
[2017-08-13] MEDS ORDERED: PROMETHAZINE HCL 25 MG TAB PO PRN (13:16)
[2017-08-13] MEDS ORDERED: IBUPROFEN 600 MG TAB PO PRN (13:16)
--- NOTE | 2017-08-13 13:16 | PDECTPN ---
ECT Progress Note Patient Problems: Problems Problem Status Onset Code Acute psychosis Acute F23 Forearm laceration involving tendon Acute S51.819A, S56.929A Marijuana abuse Acute F12.10 Self-inflicted injury Acute Z72.89 Date: 08/13/17 ECT provider: Gomez Lopez Anesthesia: Justin Eubanks Stimulus dose (%): 95 Pulse width: 0.5 ECT EMG (sec): 45 ECT EEG (sec): 85 ECT treatment type: bilateral QIDS-SR Total Score: 5 QIDS-SR Question #12 Score: 0 MMSE Total Score (Max = 21): 21 Next ECT date: 08/15/17 Next ECT time: 11:30 O/P psychiatrist follow up with Dr.: Catherine Perez O/P psychiatrist follow up: direct communication Home medications: Medication Instructions Recorded [place] Carbonate ER [Eskalith Cr 1,350 mg PO HS 10/07/16 450 mg (*)] Loxapine Succinate [Loxapine 50 mg 50 mg PO HS 10/07/16 (*)] lamoTRIgine [LamICTAL 100 MG (*)] 200 mg PO HS 10/07/16 Deplin 15mg 15 mg PO HS 08/08/17 Medication review: completed Current treatment plan: acute phase, increased frequency cycle d/t exacerbation of symptoms Treatment plan frequency: 3 times per week ECT narrative: Pt has had ongoing, disturbing command AH over weekend that are becoming even more provacative, taunting him "Nexk time do THAT to your neck!!" referring to his deep arm laceration. He appears disheveled, blunted, impov in speech,odd in attitude, fair eye contact, PMR. NO signif SE with increase in loxitane. Pt does not wish to start new AAP, like the Vraylar that Dr Perez spoke of at his juncture. Will proceed with acute B ECT through this week. He remains gravely disabled and an imminent risk of harm to self. LI level 0.7. LMT and loxapine levels are pnd.
--- NOTE | 2017-08-13 13:28 | POSTANESTH ---
Post Anesthetic Evaluation Cardiovascular Status: Normal, Stable Respiratory Status: Normal, Stable, Requires Airway Assist Level of Consciousness/Mental Status: Unconscious Pain Control: Adequate, Prn Tx Ordered Nausea/Vomiting Control: Adequate, Prn Tx Ordered Complications Possibly Related to Anesthesia: None Noted
[2017-08-13] MEDS: LITHIUM CARBONATE ER 450 MG TAB PO SCH (20:48)
[2017-08-13] MEDS: lamoTRIgine 100 MG TAB PO SCH (20:49)
[2017-08-13] MEDS: LOXAPINE SUCCINATE 25 MG CAP PO SCH (20:49)
[2017-08-14] MEDS: LOXAPINE SUCCINATE 25 MG CAP PO SCH (20:53)
--- NOTE | 2017-08-14 21:49 | SOAPPROG ---
SOAP Progress Note Assessment/Plan: Assessment: Plan: 08/14/17 21:49 Schizoaffective D/o: Notable improvement. [facility] inc: ECT tomorrow per Dr. Lopez. Subjective: Pt seen, discussed with staff and Dr. Lopez, chart reviewed. He is pleasant and interactive. Seeks me out several times today to discuss ECT and treatment plan. Interviewed with business intern present. States he is no longer feeling compelled to act on influence of AH's and IOR's. States, "I know I pissed them off, but I'm going to ignore them." States he feel "relieved" and having not thoughts of suicide or self-harming. Behaviors remains stable on unit. Compliant with meds and therapeutic interventions inc: groups. Objective: Vital Signs Temp Pulse Resp BP Pulse Ox 36.4 C 70 16 121/62 H 98 08/14/17 06:00 08/14/17 06:00 08/14/17 06:00 08/14/17 06:00 08/14/17 06:00 08/13/17 08/14/17 08/15/17 05:59 05:59 05:59 Intake Total 1060 Balance 1060 MSE: Guarded, though coop. Affect is constricted, stable, approp. Mood is "pretty good." TP generally linear with minimal blocking. TC reveals less intrusive AH's, though continued IOR's and paranoia. Denies SI. - Time Spent With Patient Time Spent With Patient: 15" ICD10 Worksheet Patient Problems: Problems Problem Status Onset Acute psychosis Acute Forearm laceration involving tendon Acute Marijuana abuse Acute Self-inflicted injury Acute
[2017-08-15] MEDS ORDERED: CITRIC ACID/SODIUM CITRATE 30 ML UDCUP PO PRN (04:00)
[2017-08-15] MEDS ORDERED: ONDANSETRON DISINTEGRATING 4 MG TAB PO PRN (04:00)
[2017-08-15] MEDS ORDERED: NS 1,000 ML IV PRN (04:00)
--- NOTE | 2017-08-15 12:23 | PDANEPAE ---
ECT Pre Anesthetic Evaluation Allergies/Adverse Reactions: ketamine Allergy (Verified 06/15/17 10:32) nausea/vomiting morphine Allergy (Verified 06/15/17 10:32) psychosis oxycodone Allergy (Verified 06/15/17 10:32) psychosis Patient ID confirmed: Yes H&P reviewed: Yes Pre-anesthetic history reviewed: Yes Heart: regular rate and rhythym, no murmur, rub, or gallop Lungs: no respiratory distress, clear to auscultation Mallampati Score: Class 2 ASA Status: II Home Medications: Medication Instructions Recorded [place] Carbonate ER [Eskalith Cr 1,350 mg PO HS 10/07/16 450 mg (*)] Loxapine Succinate [Loxapine 50 mg 50 mg PO HS 10/07/16 (*)] lamoTRIgine [LamICTAL 100 MG (*)] 200 mg PO HS 10/07/16 Deplin 15mg 15 mg PO HS 08/08/17 Medication review: completed Patient interviewed: Yes Patient examined: Yes Anesthetic plan discussed with patient: Yes Anesthetic risks discussed with patient: Yes ECT Pre-Anesthetic History - Height & Weight Height: 180.34 cm Weight: 71.033 kg BMI: 21.85 - Anesthesia History Hx Anesthesia Complications (with details): None. "allergies to Ketamine and opiod pain killers". Med list: [place], Loxapine, Lamictal Methylfolate Family Hx Anesthesia Complications: None - Medications In the Past 6 Months the Patient Has Taken: Antibiotics - Tobacco/Alcohol/Drug Use Smoking Status: Current every day smoker Packs Per Day: 0.5 Alcohol Use: Yes Type(s) Of Alcohol: beer Alcohol Quantity: 3 Alcohol Frequency: 4 times per week - Prior Surgeries/Hospitalizations Prior Surgeries: Tendon repair 2018. Nail in right leg 2017 - Pulmonary History ECT Hx Asthma: No Hx Abnormal Chest X-Ray: No Hx Oxygen in Use at Home: No O2 in Use at Home (L/minute): none - Cardiovascular History Hx Hypertension: No Currently Uses Hypertension Medication: No Hx Arrhythmias: No Hx Palpitations: No Hx Chest Pain: No Hx Coronary Artery / Peripheral Vascular Disease: No Hx Blood Clot: No - Neurologic History Hx Cerebrovascular Accident: No Hx CT Scan Or MRI Of The Brain: No Hx Epilepsy, Convulsions, Seizures, Or Blackouts: No Hx Frequent Or Severe Headaches: No Hx Numbness: No Hx Neurologic Disorder: No - Dental History Dental History Comment: Pt. answered yes to "dentures, caps, bridges or braces. " Discussed with Dr. Eubanks. Will document specifics at next evaluation. - Endocrine History Hx Diabetes: No Current Daily Insulin Injections: No Hx Thyroid Problems: No - Renal/Urologic History Hx Renal Disorders: No Hx Urinary Tract Problems: No - Liver History Hx Hepatic Disorders: No - Cancer History Hx Cancer: No - Hematology History Hx Unexplained Bleeding Of Any Type: No Hx Ease Of Bruising: No Hx Anemia: No - Gastrointestinal History Hx Gastroesophogeal Reflux Disease: No Hx Ulcers: No Hx Hiatal Hernia: No Hx Difficulty Swallowing: No - Musculoskeletal Hisory Hx Chronic Pain: No Hx Arthritis: No - Opthalmic History Hx Glaucoma: No Visual Assistive Devices: Contacts, Glasses Hx Opthalmic Disorders: No - Other Health History Physical Disabililty: No Recent Cough, Cold, or Fever: No Significant Weight Loss In The Last 4 Months: No Possible the Patient Might be : No
--- NOTE | 2017-08-15 12:30 | PDECTPN ---
ECT Progress Note Patient Problems: Problems Problem Status Onset Code Acute psychosis Acute F23 Forearm laceration involving tendon Acute S51.819A, S56.929A Marijuana abuse Acute F12.10 Self-inflicted injury Acute Z72.89 Date: 08/15/17 ECT provider: Gomez Lopez Anesthesia: Justin Eubanks Stimulus dose (%): 95 Pulse width: 0.5 ECT EMG (sec): 41 ECT EEG (sec): 72 ECT treatment type: bilateral QIDS-SR Total Score: 6 QIDS-SR Question #12 Score: 0 MMSE Total Score (Max = 21): 21 Next ECT date: 08/17/17 Next ECT time: 11:30 O/P psychiatrist follow up with Dr.: Catherine Perez O/P psychiatrist follow up: direct communication Home medications: Medication Instructions Recorded [place] Carbonate ER [Eskalith Cr 1,350 mg PO HS 10/07/16 450 mg (*)] Loxapine Succinate [Loxapine 50 mg 50 mg PO HS 10/07/16 (*)] lamoTRIgine [LamICTAL 100 MG (*)] 200 mg PO HS 10/07/16 Deplin 15mg 15 mg PO HS 08/08/17 Current treatment plan: acute phase, increased frequency cycle d/t exacerbation of symptoms Treatment plan frequency: 3 times per week ECT narrative: Pt has had ongoing, disturbing command AH over weekend that are becoming even more provacative, taunting him "Nexk time do THAT to your neck!!" referring to his deep arm laceration. He appears disheveled, blunted, impov in speech,odd in attitude, fair eye contact, PMR. NO signif SE with increase in loxitane. Pt does not wish to start new AAP, like the Deisyaylar that Dr Perez spoke of at his juncture. Will proceed with acute B ECT through this week. He remains gravely disabled and an imminent risk of harm to self. LI level 0.7. LMT and loxapine levels are pnd. 08/15 Pt had some relief with last ECT, but it was not sustained or consistent and he even contemplated dramatic methods of self harm on unit on the coaxing of his voices. He states, going forward, that he would be able to alert RNs about such self injurious thoughts and put self on LOS. LMT level 4.7 revealing some room for improvement. Will cont acute B ECT until command AH are well under control and sealed over.
[2017-08-15] MEDS: LOXAPINE SUCCINATE 25 MG CAP PO SCH (21:16)
[2017-08-15] MEDS: lamoTRIgine 100 MG TAB PO SCH (21:17)
[2017-08-15] MEDS: LITHIUM CARBONATE ER 450 MG TAB PO SCH (21:17)
[2017-08-16] MEDS: lamoTRIgine 100 MG TAB PO SCH (18:31)
[2017-08-16] MEDS: LITHIUM CARBONATE ER 450 MG TAB PO SCH (18:31)
[2017-08-16] MEDS: LOXAPINE SUCCINATE 25 MG CAP PO SCH (20:03)
[2017-08-17] MEDS ORDERED: NS 1,000 ML IV PRN (10:32)
[2017-08-17] MEDS ORDERED: CITRIC ACID/SODIUM CITRATE 30 ML UDCUP PO PRN (10:32)
[2017-08-17] MEDS ORDERED: ONDANSETRON DISINTEGRATING 4 MG TAB PO PRN (10:32)
--- NOTE | 2017-08-17 11:28 | PDECTPN ---
ECT Progress Note Patient Problems: Problems Problem Status Onset Code Acute psychosis Acute F23 Forearm laceration involving tendon Acute S51.819A, S56.929A Self-inflicted injury Acute Z72.89 Marijuana abuse Acute F12.10 Date: 08/17/17 Treatment#: 3 ECT provider: Gomez Lopez Stimulus dose (%): 95 Pulse width: 0.5 ECT EMG (sec): 22 ECT EEG (sec): 48 ECT treatment type: bilateral QIDS-SR Total Score: 3 QIDS-SR Question #12 Score: 0 MMSE Total Score (Max = 21): 21 Next ECT date: 08/20/17 Next ECT time: 12:00 O/P psychiatrist follow up with Dr.: Catherine Perez O/P psychiatrist follow up: direct communication Home medications: Medication Instructions Recorded [place] Carbonate ER [Eskalith Cr 1,350 mg PO HS 10/07/16 450 mg (*)] Loxapine Succinate [Loxapine 50 mg 50 mg PO HS 10/07/16 (*)] lamoTRIgine [LamICTAL 100 MG (*)] 200 mg PO HS 10/07/16 Deplin 15mg 15 mg PO HS 08/08/17 Medication review: completed Current treatment plan: acute phase, increased frequency cycle d/t exacerbation of symptoms Treatment plan frequency: 3 times per week ECT narrative: Pt has had ongoing, disturbing command AH over weekend that are becoming even more provacative, taunting him "Nexk time do THAT to your neck!!" referring to his deep arm laceration. He appears disheveled, blunted, impov in speech,odd in attitude, fair eye contact, PMR. NO signif SE with increase in loxitane. Pt does not wish to start new AAP, like the Deisyaylar that Dr Perez spoke of at his juncture. Will proceed with acute B ECT through this week. He remains gravely disabled and an imminent risk of harm to self. LI level 0.7. LMT and loxapine levels are pnd. 08/15 Pt had some relief with last ECT, but it was not sustained or consistent and he even contemplated dramatic methods of self harm on unit on the coaxing of his voices. He states, going forward, that he would be able to alert RNs about such self injurious thoughts and put self on LOS. LMT level 4.7 revealing some room for improvement. Will cont acute B ECT until command AH are well under control and sealed over. Late note from 08/16 and from today, 08/17: Pt has had some partial benefit from ECT with a "muting" of the AH in terms of their intensity, frequency, and ability to induce maladaptive/self injurious harm in pt. He will, hopefully, have that much more relief with today, his third, acute ECT. Dr Perez ready for him to tranfer to [facility]. Pt would prefer that over staying inpt at [facility]. WIll see wound care people today. If there is no need for on going, daily intervention around care for his arm, I see no reason not to transfer. Plan to do 3x/week ect next week. Dr Perez can speak with him about Vraylar as a potential alternative to Loxapine. Loxapine at its metabolite level are still pnd. Li was 0.7 and LMT level was 4.7
[2017-08-17] MEDS: LITHIUM CARBONATE ER 450 MG TAB PO SCH (21:15)
[2017-08-17] MEDS: lamoTRIgine 100 MG TAB PO SCH (21:16)
[2017-08-17] MEDS: LOXAPINE SUCCINATE 25 MG CAP PO SCH (21:16)
--- NOTE | 2017-08-18 14:03 | SOAPPROG ---
SOAP Progress Note Assessment/Plan: Assessment: Per Dr. Lopez's note: Pt has had ongoing, disturbing command AH over weekend that are becoming even more provacative, taunting him "Nexk time do THAT to your neck!!" referring to his deep arm laceration. He appears disheveled, blunted, impov in speech,odd in attitude, fair eye contact, PMR. NO signif SE with increase in loxitane. Pt does not wish to start new AAP, like the Vraylar that Dr Perez spoke of at his juncture. Will proceed with acute B ECT through this week. He remains gravely disabled and an imminent risk of harm to self. LI level 0.7. LMT and loxapine levels are pnd. 08/15 Pt had some relief with last ECT, but it was not sustained or consistent and he even contemplated dramatic methods of self harm on unit on the coaxing of his voices. He states, going forward, that he would be able to alert RNs about such self injurious thoughts and put self on LOS. LMT level 4.7 revealing some room for improvement. Will cont acute B ECT until command AH are well under control and sealed over. Late note from 08/16 and from today, 08/17: Pt has had some partial benefit from ECT with a "muting" of the AH in terms of their intensity, frequency, and ability to induce maladaptive/self injurious harm in pt. He will, hopefully, have that much more relief with today, his third, acute ECT. Dr Perez ready for him to tranfer to [facility]. Pt would prefer that over staying inpt at [facility]. WIll see wound care people today. If there is no need for on going, daily intervention around care for his arm, I see no reason not to transfer. Plan to do 3x/week ect next week. Dr Perez can speak with him about Vraylar as a potential alternative to Loxapine. Loxapine at its metabolite level are still pnd. Li was 0.7 and LMT level was 4.7 Plan: 08/18/17 13:58 1. Loxapine level was <5, metabolite level was 40.6. 2. Patient denies any CAH today. 3. Next ECT on Sunday. 4. Plan to return to [facility] on Sunday and continue with ECT next week. Subjective: Met with patient, reviewed chart and d/w staff. Patient is wearing a brace on left arm. Staff report PT met with patient on Sunday and reviewed exercises for injured tendon. Staff report patient is consistent with doing exercises daily. Patient says he has been "ignoring all the voices." When MD met with patient he said he wasn't having any CAH today. Patient does still worry that people are "talking about" him behind his back. He plans to d/c on Sunday and go to [facility], but will return for ECT through next week. Objective: Vital Signs Temp Pulse Resp BP Pulse Ox 36.5 C 87 16 120/72 96 08/18/17 06:00 08/18/17 06:00 08/18/17 06:00 08/18/17 06:00 08/18/17 06:00 08/17/17 08/18/17 08/19/17 05:59 05:59 05:59 Intake Total 620 Balance 620 MSE: Affect: Flat Mood: "OK" TP: Slow, paucity of speech TC: Denies any SI/HI , reports no CAH today Insight/Judgment: Improved - Time Spent With Patient Time Spent With Patient: 20" - Pending Discharge Pending Discharge Within 24 Hours: No Pending Discharge Within 48 Hours: No ICD10 Worksheet Patient Problems: Problems Problem Status Onset Acute psychosis Acute Forearm laceration involving tendon Acute Marijuana abuse Acute Self-inflicted injury Acute
[2017-08-18] MEDS: LITHIUM CARBONATE ER 450 MG TAB PO SCH (21:30)
[2017-08-18] MEDS: lamoTRIgine 100 MG TAB PO SCH (21:31)
[2017-08-18] MEDS: LOXAPINE SUCCINATE 25 MG CAP PO SCH (21:31)
--- NOTE | 2017-08-19 14:15 | SOAPPROG ---
SOAP Progress Note Assessment/Plan: Assessment: Per Dr. Lopez's note: Pt has had ongoing, disturbing command AH over weekend that are becoming even more provacative, taunting him "Nexk time do THAT to your neck!!" referring to his deep arm laceration. He appears disheveled, blunted, impov in speech,odd in attitude, fair eye contact, PMR. NO signif SE with increase in loxitane. Pt does not wish to start new AAP, like the Vraylar that Dr Perez spoke of at his juncture. Will proceed with acute B ECT through this week. He remains gravely disabled and an imminent risk of harm to self. LI level 0.7. LMT and loxapine levels are pnd. 08/15 Pt had some relief with last ECT, but it was not sustained or consistent and he even contemplated dramatic methods of self harm on unit on the coaxing of his voices. He states, going forward, that he would be able to alert RNs about such self injurious thoughts and put self on LOS. LMT level 4.7 revealing some room for improvement. Will cont acute B ECT until command AH are well under control and sealed over. Late note from 08/16 and from today, 08/17: Pt has had some partial benefit from ECT with a "muting" of the AH in terms of their intensity, frequency, and ability to induce maladaptive/self injurious harm in pt. He will, hopefully, have that much more relief with today, his third, acute ECT. Dr Perez ready for him to tranfer to [facility]. Pt would prefer that over staying inpt at [facility]. WIll see wound care people today. If there is no need for on going, daily intervention around care for his arm, I see no reason not to transfer. Plan to do 3x/week ect next week. Dr Perez can speak with him about Vraylar as a potential alternative to Loxapine. Loxapine at its metabolite level are still pnd. Li was 0.7 and LMT level was 4.7 Plan: 08/18/17 13:58 1. Loxapine level was <5, metabolite level was 40.6. 2. Patient denies any CAH today. 3. Next ECT on Sunday. 4. Plan to return to [facility] on [place] and continue with ECT next week. 08/19/17 14:12 1. Patient denies any CAH. Says he has voices, but he doesn't know "if they're my voice" or not. Denies any thoughts about hurting himself. 2. ECT on Sunday. 3. FOC says he is able to pick patient up tomorrow afternoon to take him to [facility]. Subjective: Met with patient, reviewed chart and d/w staff. Patient was lying in bed with MOC and FOC present in his room. Patient has delayed response to questions, but says he is feeling "better" this weekend. He denies any CAH, and says he hears "voices" but can't tell if "they're my voice" or not. He denies any thoughts about wanting to hurt himself. FOC told MD that he is able to come to hospital tomorrow afternoon if needed to transport patient to [facility]. Objective: Vital Signs Temp Pulse Resp BP Pulse Ox 36.4 C 104 H 14 115/65 97 08/19/17 06:00 08/19/17 06:00 08/19/17 06:00 08/19/17 06:00 08/19/17 06:00 08/18/17 08/19/17 08/20/17 05:59 05:59 05:59 Intake Total 620 Balance 620 MSE: Affect: Flat Mood: "Better" TP: Linear TC: Denies any SI/HI, hears "voices" but no CAH Insight/Judgment: Improved - Time Spent With Patient Time Spent With Patient: 15" - Pending Discharge Pending Discharge Within 24 Hours: Yes Pending Discharge Date: 08/20/17 (D/C tomorrow to [facility]) Pending Discharge Time: 11:00 ICD10 Worksheet Patient Problems: Problems Problem Status Onset Acute psychosis Acute Forearm laceration involving tendon Acute Marijuana abuse Acute Self-inflicted injury Acute
[2017-08-19] MEDS: LOXAPINE SUCCINATE 25 MG CAP PO SCH ×2 (20:20→21:13)
[2017-08-19] MEDS: lamoTRIgine 100 MG TAB PO SCH (20:20)
[2017-08-19] MEDS: LITHIUM CARBONATE ER 450 MG TAB PO SCH (20:20)
[2017-08-20] MEDS ORDERED: GLYCOPYRROLATE 0.2 MG/1 ML VIAL ONE (06:17)
[2017-08-20] MEDS ORDERED: ONDANSETRON 4 MG/2 ML VIAL ONE (06:17)
[2017-08-20] MEDS ORDERED: MIDAZOLAM 2 MG/2 ML VIAL ONE (06:17)
[2017-08-20] MEDS ORDERED: fentaNYL 100 MCG/2 ML INJ ONE (06:17)
[2017-08-20] MEDS ORDERED: LABETALOL HCL 5 MG/ML 20 ML MDV ONE (06:18)
[2017-08-20] MEDS ORDERED: SUCCINYLCHOLINE CHLORIDE 200 MG/10 ML VIAL ONE (06:18)
[2017-08-20] MEDS ORDERED: ETOMIDATE 20 MG/10 ML VIAL ONE (06:18)
[2017-08-20] MEDS ORDERED: ROCURONIUM 50 MG/5 ML VIAL ONE (06:18)
[2017-08-20] MEDS ORDERED: CITRIC ACID/SODIUM CITRATE 30 ML UDCUP ONE (11:15)
[2017-08-20] MEDS ORDERED: ONDANSETRON DISINTEGRATING 4 MG TAB ONE (11:15)
[2017-08-20] MEDS ORDERED: NALOXONE HCL 0.4 MG/ML INJ IVP PRN (11:43)
[2017-08-20] MEDS ORDERED: HYDROCODONE/APAP 5/325 TAB PO PRN (11:43)
[2017-08-20] MEDS ORDERED: PROMETHAZINE HCL 25 MG TAB PO PRN (11:43)
[2017-08-20] MEDS ORDERED: NS 1,000 ML IV PRN (11:51)
[2017-08-20] MEDS ORDERED: ONDANSETRON DISINTEGRATING 4 MG TAB PO PRN (11:51)
[2017-08-20] MEDS ORDERED: CITRIC ACID/SODIUM CITRATE 30 ML UDCUP PO PRN (11:51)
--- NOTE | 2017-08-20 11:58 | PDECTPN ---
ECT Progress Note Patient Problems: Problems Problem Status Onset Code Acute psychosis Acute F23 Forearm laceration involving tendon Acute S51.819A, S56.929A Marijuana abuse Acute F12.10 Self-inflicted injury Acute Z72.89 Date: 08/20/17 Treatment#: 4 ECT provider: Gomez Lopez Anesthesia: Justin Eubanks Stimulus dose (%): 95 Pulse width: 0.5 ECT treatment type: bilateral QIDS-SR Total Score: 2 QIDS-SR Question #12 Score: 1 MMSE Total Score (Max = 21): 21 Next ECT date: 08/22/17 Next ECT time: 08:00 O/P psychiatrist follow up with .: Jewels Yates O/P psychiatrist follow up: direct communication Home medications: Medication Instructions Recorded [place] Carbonate ER [Eskalith Cr 1,350 mg PO HS 10/07/16 450 mg (*)] Loxapine Succinate [Loxapine 50 mg 50 mg PO HS 10/07/16 (*)] lamoTRIgine [LamICTAL 100 MG (*)] 200 mg PO HS 10/07/16 De[place]in 15mg 15 mg PO HS 08/08/17 Current treatment plan: acute phase, increased frequency cycle d/t exacerbation of symptoms Treatment plan frequency: 3 times per week ECT narrative: Pt has had ongoing, disturbing command AH over weekend that are becoming even more provacative, taunting him "Nexk time do THAT to your neck!!" referring to his deep arm laceration. He appears disheveled, blunted, impov in speech,odd in attitude, fair eye contact, PMR. NO signif SE with increase in loxitane. Pt does not wish to start new AAP, like the Vraylar that Dr Perez spoke of at his juncture. Will proceed with acute B ECT through this week. He remains gravely disabled and an imminent risk of harm to self. LI level 0.7. LMT and loxapine levels are pnd. 08/15 Pt had some relief with last ECT, but it was not sustained or consistent and he even contemplated dramatic methods of self harm on unit on the coaxing of his voices. He states, going forward, that he would be able to alert RNs about such self injurious thoughts and put self on LOS. LMT level 4.7 revealing some room for improvement. Will cont acute B ECT until command AH are well under control and sealed over. Late note from 08/16 and from today, 08/17: Pt has had some partial benefit from ECT with a "muting" of the AH in terms of their intensity, frequency, and ability to induce maladaptive/self injurious harm in pt. He will, hopefully, have that much more relief with today, his third, acute ECT. Dr Perez ready for him to tranfer to [facility]. Pt would prefer that over staying inpt at [facility]. WIll see wound care people today. If there is no need for on going, daily intervention around care for his arm, I see no reason not to transfer. Plan to do 3x/week ect next week. Dr Perez can speak with him about Vraylar as a potential alternative to Loxapine. Loxapine at its metabolite level are still pnd. Li was 0.7 and LMT level was 4.7 08/[address] Christy's notes over weekend. Pt continues to improve and "seal over " with AH fading in intensity and malignancy. He does still feel "an impending sense of doom, as if something really bad is going to happen" but the concrete command AHs to harm himself are mostly absent or fading significantly. Loxapine level appreciated. Spoke with Dr Yates today about D/C to [facility] in am. He is aware of plan to complete acute ect thru this week and about idea of Vraylar.
--- NOTE | 2017-08-20 13:34 | GDS ---
[f rep st] DISCHARGE SUMMARY IDENTIFYING DATA: The patient is a 27-year-old single white male who has been treated by cristy huerta with maintenance ECT for his schizoaffective disorder since 2010. He has been working with Catherine zamora MD, at [facility]. The patient has most recently been working at a [employer], [employer] he does have a degree in finance from . 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 Perez and the patient's mother. He was admitted on 08/09/2017 and will be discharge d on 08/21/2017. REASON FOR ADMISSION: The patient had an exacerbation of his mood and psychotic symptoms culminating in command auditory hallucinations dictating him to hurt himself. This led to his making a very deep cut in his upper extremity requiring surgery for a torn tendon. Although he has been compliant with medications, he has had an exacerbation of his marijuana use disorder, in which he has been using the drug daily and in significantly greater amounts. He does have a history of marijuana use disorder, a lthough he had been in relative remission prior to a few months ago. ROUTINE PHYSICAL EXAM: Performed by Dr. Riggs reveals: 1. Right wrist laceration, self-induced, status post surgical repair. He is to follow up in 2 weeks with Orthopedic Surgery for recheck and suture removal. Orthopedic surgeon recommends initiating ther apy with a PT hand specialist within a week for early mobilization. 2. Postoperative anemia in a healthy young man. We expect this to resolve spontaneously over time. 3. Marijuana use disorder. LAB TESTING: Lamotrigine level is 4.7. [place] level is 0.7. Loxapine is less than 5 and 8-hydroxy l oxapine was 40.6. HOSPITAL COURSE: The patient gave his informed consent to increase his loxapine from 50 to 75 mg. No other medication changes were made, although he did have his Lamictal and lithium doses held the nig hts prior to ECT. He also gave his informed consent to undergo acute ECT, which has historically aide d him with his mood and psychotic exacerbations most robustly and expediently. He had a total of 4 ac adán treatments with fairly rapid sealing over of his psychosis. He felt as if the command hallucinati ons had much attenuated in intensity and frequency. He was to transfer to [facility]. DISCHARGE MEDICATIONS: Lamictal 200 mg p.o. at bedtime, lithium carbonate ER 1350 mg p.o. at bedtime , Ativan 0.5 mg p.o. q.6 hours p.r.n. anxiety, loxapine 75 mg p.o. at bedtime. DISPOSITION: The patient will be transferred to [facility] under the care of Catherine Perez. He flavio l continue acute ECT through this week. He should receive intensive chemical dependence counseling an d aspire to be completely abstinent from his THC use. DISCHARGE DIAGNOSES: AXIS I: Schizoaffective disorder, bipolar types; marijuana use disorder, severe . AXIS II: Deferred. AXIS III: Upper extremity laceration with surgical repair. AXIS IV: Moderate. AXIS V: 45. /[id number]/MODL
[2017-08-20] MEDS: LITHIUM CARBONATE ER 450 MG TAB PO SCH (21:07)
[2017-08-20] MEDS: LOXAPINE SUCCINATE 25 MG CAP PO SCH (21:07)
[2017-08-20] MEDS: lamoTRIgine 100 MG TAB PO SCH (21:08)
[2017-08-21 06:37] VITALS: BP 94/53
[2017-08-22] MEDS ORDERED: NS 1,000 ML IV PRN ×2 (00:01→04:00)
[2017-08-22] MEDS ORDERED: CITRIC ACID/SODIUM CITRATE 30 ML UDCUP PO PRN ×2 (00:01→04:00)
[2017-08-22] MEDS ORDERED: ONDANSETRON DISINTEGRATING 4 MG TAB PO PRN (04:00)
[2017-08-22] MEDS ORDERED: fentaNYL 100 MCG/2 ML INJ ONE (06:46)
[2017-08-22] MEDS ORDERED: ONDANSETRON 4 MG/2 ML VIAL ONE (06:46)
[2017-08-22] MEDS ORDERED: MIDAZOLAM 2 MG/2 ML VIAL ONE (06:46)
[2017-08-22] MEDS ORDERED: SUCCINYLCHOLINE CHLORIDE 200 MG/10 ML VIAL ONE (06:46)
[2017-08-22] MEDS ORDERED: GLYCOPYRROLATE 0.2 MG/1 ML VIAL ONE (06:46)
[2017-08-22] MEDS ORDERED: ETOMIDATE 20 MG/10 ML VIAL ONE (06:46)
[2017-08-22] MEDS ORDERED: LABETALOL HCL 5 MG/ML 20 ML MDV ONE (06:46)
[2017-08-22] MEDS ORDERED: ROCURONIUM 50 MG/5 ML VIAL ONE (06:46)
== END 2017-08-21 10:24 | DRG 885 ==
LOC: BBEH 15:10
PROVIDERS: ADMIT Psychiatry & Neurology Psychiatry; ATTEND Psychiatry & Neurology Psychiatry
PROC: GZB2ZZZ Electroconvulsive Therapy, Bilateral-Single Seizure (ICD-10-PCS; principal; 2017-08-10)
DX: F25.0 Schizoaffective disorder, bipolar type (principal); F12.951 Cannabis use, unspecified with psychotic disorder with hallucinations; D62 Acute posthemorrhagic anemia; S61.511D Laceration without foreign body of right wrist, subsequent encounter; X78.1XXD Intentional self-harm by knife, subsequent encounter; Z72.0 Tobacco use
CPT/HCPCS: 80175-90; 80342-90; 97110-GO; 97140-GO; 97166-GO; 97760-GO; J0330; J2250; J2405; J3010

== ENCOUNTER 2017-11-20 21:49 | Inpatient (IN) | payer OTHER, MEDICAID ==
--- NOTE | 2017-11-20 22:15 | EDPHY ---
H & P Stated Complaint: SI Source: Patient, RN/MD, Old records Exam Limitations: Clinical condition - Personal History Tetanus Vaccine Date: < 10 YEARS - Medical/Surgical History Hx Asthma: No Hx Chronic Respiratory Disease: No Hx Diabetes: No Hx Cardiac Disease: No Hx Renal Disease: No Hx Cirrhosis: No Hx Alcoholism: No Hx HIV/AIDS: No Hx Splenectomy or Spleen Trauma: No Other PMH: BIPOLAR DO, SCHIZOAFFECTIVE, SX R TIB FIB 2016 - Social History Smoking Status: Current every day smoker Time Seen by Provider: 11/20/17 22:10 HPI/ROS: HPI: This is a 27-year-old male who presents with Chief Complaint: Suicidal ideation Location:psych Quality: Suicidal ideation Duration: Several days Signs and Symptoms: Timing: Severity: Context: Patient has a history of bipolar disorder -schizoaffective disorder, followed by [facility] presents with his mother, , for worsening auditory and visual hallucinations, paranoia, suicidal ideation over the last few days. He is on several antipsychotic medications including Depakote, Lamictal and Farner. He recently had electric convulsive therapy yesterday. He reports that the hallucinations are continuing to worsen and he is afraid that he is going to try to harm self. In August, he had a similar incident that required inpatient hospitalization. The patient cut his arms in August but has not cut his arms today. Patient reports that he has poor self control. Modifying Factors: See above Comment: ROS: see HPI Constitutional: No fever, no chills, no weight loss Eyes: No blurred vision Respiratory: No shortness of breath, no cough Cardiovascular: No chest pain Gastrointestinal: No nausea, no vomiting, no diarrhea Genitourinary: No dysuria Extremities: No myalgias Neurologic: No weakness, no numbness Skin: No rashes Hematologic: No bruising, no bleeding MEDICAL/SURGICAL/SOCIAL HISTORY: Medical/Surgical history: BIPOLAR DO, SCHIZOAFFECTIVE, SX R TIB FIB 2016 Social history: Disabled. Family history noncontributory. CONSTITUTIONAL: Tidy, cooperative, adult white male, mother at bedside, awake and alert, no obvious distress HEENT: Atraumatic and normocephalic, PERRL, EOMI. Nares patent; no rhinorrhea; no nasal mucosal edema. Tympanic membranes clear. Oropharynx clear, no exudate and moist pink mucosa. Airway patent. No lymphadenopathy. No meningismus. Cardiovascular: Normal S1/S2, regular rate, regular rhythm, without murmur rub or gallop. PULMONARY/CHEST: Symmetrical and nontender. Clear to auscultation bilaterally. Good air movement. No accessory muscle usage. ABDOMEN: Soft, nondistended, nontender, no rebound, no guarding, no peritoneal signs, no masses or organomegaly. No CVAT. EXTREMITIES: 2/2 pulses, strength 5/5, no deformities, no clubbing, no cyanosis or edema. NEUROLOGICAL: no focal neuro deficits. GCS 15. SKIN: Warm and dry, no erythema. no rash. Good capillary refill. PSYCH: Flat affect, Poor eye contact, no flight of ideas, tangential disorganized thought process, good insight and judgment, + auditory hallucinations, +visual hallucinations, + suicidal ideation with a plan, no homicidal ideation, + paranoia ([place]) Constitutional: Initial Vital Signs Temperature (C) 36.8 C 11/20/17 21:53 Heart Rate 63 11/20/17 21:53 Respiratory Rate 16 11/20/17 21:53 Blood Pressure 132/82 H 11/20/17 21:53 O2 Sat (%) 97 11/20/17 21:53 Allergies/Adverse Reactions: ketamine Allergy (Verified 11/20/17 22:10) nausea/vomiting morphine Allergy (Verified 11/20/17 22:10) psychosis oxycodone Allergy (Verified 11/20/17 22:10) psychosis Home Medications: Medication Instructions Recorded [place] Carbonate ER [Eskalith Cr 1,500 mg PO HS 10/07/16 450 mg (*)] lamoTRIgine [LamICTAL 100 MG (*)] 225 mg PO HS 10/07/16 Vraylar 4.5 mg PO HS 08/29/17 Medical Decision Making ED Course/Re-evaluation: 2234: Placed on M1 hold upon arrival as patient is gravely disabled. Labs and UDS ordered. Patient is currently calm and cooperative in no chemical interventions have been ordered. 2255: Labs reviewed and grossly unremarkable. Urine drug screen negative. Medically clear for mental health evaluation. 0005: End of shift. Signed over to Reviews the pending mental health evaluation in the a.m. Suspect patient will be admitted inpatient for medication stabilization. This patient was seen under the supervision of my secondary supervising physician. I evaluated care for this patient independently. Discussed this patient with Dr. Patricia. (Patti Rdz) PHYSICIAN DOCUMENTATION: The patient was evaluated and managed by the Physician Java Swing Developer. My co- signature indicates that I have reviewed this chart and I agree with the findings and plan of care as documented. I am the secondary supervising physician. 5:41 a.m.- The patient was monitored during my shift with no events. He is awaiting mental health evaluation currently. 7:05 a.m.- The patient was accepted to [address] [place] [address] Davis (Alis Patricia) Differential Diagnosis: Differential diagnosis includes but is not limited to psychosis, schizoaffective disorder, bipolar disorder, depression, suicidal ideation (Patti Rdz) - Data Points Laboratory Results: Laboratory Results 11/20/17 22:40 11/20/17 22:40 11/20/17 11/20/17 11/20/17 22:40 22:40 22:20 WBC 8.44 10^3/uL 10^3/uL (3.80-9.50) RBC 4.40 10^6/uL 10^6/uL (4.40-6.38) Hgb 13.0 g/dL L g/dL (13.7-17.5) Hct 39.1 % L % (40.0-51.0) MCV 88.9 fL fL (81.5-99.8) MCH 29.5 pg pg (27.9-34.1) MCHC 33.2 g/dL g/dL (32.4-36.7) RDW 12.8 % % (11.5-15.2) Plt Count 243 10^3/uL 10^3/uL (150-400) MPV 10.3 fL fL (8.7-11.7) Neut % (Auto) 59.5 % % (39.3-74.2) Lymph % (Auto) 29.6 % % (15.0-45.0) [place] % (Auto) 7.5 % % (4.5-13.0) Eos % (Auto) 2.7 % % (0.6-7.6) Baso % (Auto) 0.5 % % (0.3-1.7) Nucleat RBC Rel Count 0.0 % % (0.0-0.2) Absolute Neuts (auto) 5.02 10^3/uL 10^3/uL (1.70-6.50) Absolute Lymphs (auto) 2.50 10^3/uL 10^3/uL (1.00-3.00) Absolute Monos (auto) 0.63 10^3/uL 10^3/uL (0.30-0.80) Absolute Eos (auto) 0.23 10^3/uL 10^3/uL (0.03-0.40) Absolute Basos (auto) 0.04 10^3/uL 10^3/uL (0.02-0.10) Absolute Nucleated RBC 0.00 10^3/uL 10^3/uL (0-0.01) Immature Gran % 0.2 % % (0.0-1.1) Immature Gran # 0.02 10^3/uL 10^3/uL (0.00-0.10) Sodium 138 mEq/L mEq/L (135-145) Potassium 3.8 mEq/L mEq/L (3.3-5.0) Chloride 104 mEq/L mEq/L (97-110) Carbon Dioxide 26 mEq/l mEq/l (22-31) Anion Gap 8 mEq/L mEq/L (8-16) BUN 10 mg/dL mg/dL (7-23) Creatinine 0.8 mg/dL mg/dL (0.7-1.3) Estimated GFR > 60 Glucose 89 mg/dL mg/dL (70-100) Calcium 9.5 mg/dL mg/dL (8.5-10.4) Urine Opiates Screen NEGATIVE (NEGATIVE) Urine Barbiturates NEGATIVE (NEGATIVE) Ur Phencyclidine Scrn NEGATIVE (NEGATIVE) Ur Amphetamine Screen NEGATIVE (NEGATIVE) U Benzodiazepines Scrn NEGATIVE (NEGATIVE) Urine Cocaine Screen NEGATIVE (NEGATIVE) U Marijuana (THC) Screen NEGATIVE (NEGATIVE) Ethyl Alcohol < 10 mg/dL mg/dL (0-10) Departure - Departure Disposition: [facility] IP Clinical Impression: Suicidal ideation Schizoaffective disorder Qualifiers: Schizoaffective disorder type: bipolar Qualified Code(s): F25.0 - Schizoaffective disorder, bipolar type Condition: Fair Referrals: Aram Aranda MD [Primary Care Provider] - As per Instructions
[2017-11-20 22:44] LABS: PLATELET COUNT 243 10^3/uL (150-400)
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
--- NOTE | 2017-11-21 07:22 | ASMTTCLDSP ---
TLC Discharge Disposition Disposition: Answers: Admit Disposition Notes: Notes: Admit 3[facility]. Discharge Concerns/Recommendations: Notes: In consultation with [facility] ED physician, Aggie Varner MD, and on-call psychiatrist, Dino Noriega MD, both concurred that pt appears to meet 27-65 criteria requiring psychiatric hospitalization as pt appears to be an imminent risk of harm to self/gravely disabled due to a mental illness condition. Pt was given and signed the [facility] prohibited belongings list while in the ED. Was patient given the Answers: Yes Inpatient Behavioral Health Prohibited Belongings List while in the ED? For inpatient Dino Noriega MD admission, the following psychiatrist agreed to accept patient for admission to Behavioral Health ([facility]): Type of Hold: Answers: M1/72-hour Hold Hold initiated by: Answers: ED Physician Date Signed: 11/21/2017 07:21 AM Electronically Signed By:Ben Evans
[2017-11-21] MEDS ORDERED: MAGNESIUM HYDROXIDE 30 ML UDCUP PO PRN (11:26)
[2017-11-21] MEDS ORDERED: MAG HYDROX/AL HYDROX/SIMETH 30 ML UDCUP PO PRN (11:26)
[2017-11-21] MEDS ORDERED: ACETAMINOPHEN 325 MG TAB PO PRN (11:26)
[2017-11-21] MEDS ORDERED: NICOTINE POLACRILEX 2 MG GUM B PRN (11:26)
--- NOTE | 2017-11-21 14:19 | BCON ---
[f rep st] BEHAVIORAL HEALTH CONSULTATION INTERNAL MEDICINE CONSULTATION DATE OF CONSULTATION: 11/21/2017 REFERRING PHYSICIAN: Dino Noriega MD REASON FOR REFERRAL: Medical clearance for inpatient behavioral health stay. HISTORY OF PRESENT ILLNESS: This patient was brought to the emergency department by his mother. He had received electroconvulsive therapy the previous day, but he had worsening auditory and visual hallucinations, paranoia , and suicidal ideation. He did not feel that he could maintain safety. He was evaluated by the mental health team and admitted for further psychiatric care. He is currently without any acute complaints. PAST MEDICAL HISTORY: 1. Mental health issues with diagnoses of bipolar disorder and schizoaffective disorder. 2. Self-induced lacerations of the forearms, requiring tendon reconstruction in August of this year. 3. Tibia and fibula fracture in 2016, requiring surgery. SOCIAL HISTORY: He reports that he lives with his parents. 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 He is a smoker. FAMILY HISTORY: Noncontributory. ALLERGIES: Listed to ketamine, morphine and oxycodone. MEDICATIONS: Prior to admission: 1. [place] 1500 mg p.o. q.h.s. 2. Lamotrigine 225 mg p.o. q.h.s. 3. Cariprazine 4.5 mg p.o. q.h.s. REVIEW OF SYSTEMS: A 10-point review of systems was conducted and was negative. PHYSICAL EXAM: VITAL SIGNS: Blood pressure is 114/64. Heart rate is 73. Respiratory rate is 14. Oxygen saturation is 97% on room air. Temperature is 36.6 degrees centigrade. His weight is 72.6 kg for a body mass index of 22.3. GENERAL: This is a well-nourished, well-developed man, napping in bed, easily awakened, cooperative, and in no acute distress. HEENT: Extraocular movements are intact. Pupils are equal, round, and reactive to light. Mucous membranes are moist. Dentition is in good condition. NECK: Supple. HEART: Regular rate and rhythm, with no murmurs, rubs, or gallops. LUNGS: Clear to auscultation bilaterally. ABDOMEN: Benign. EXTREMITIES: There is no cyanosis , clubbing, or edema. NEUROLOGIC: He is alert and oriented x3. Cranial nerves 2-12 are grossly intact. There is no focal weakness, and sensation is intact to light touch. LABORATORY DATA: Laboratory studies from the emergency department: CBC revealed mild anemia with a hemoglobin of 13 and a hematocrit of 39.1. Serum chemistry was completely within normal limits. Toxicology screen in the serum was negative for ethyl alcohol, and the urine was negative for any substances of abuse. ASSESSMENT AND RECOMMENDATIONS: 1. Mental health issues pending further evaluation and management per Psychiatry and the mental health team. 2. Anemia of unclear etiology. It is minor, and he is asymptomatic. Lamotrigine might contribute, but I will leave this assessment to Psychiatry. He can have further evaluation by his primary care provider as an outpatient. 3. Tobacco dependence syndrome. He was encouraged to quit smoking. I see no medical contraindications to this patient's continued stay on the inpatient behavioral health unit or to any psychiatric medications or procedures. Thank you very much for including me in the care of this patient and please do not hesitate to contact me or the hospitalist service should there be need for further medical evaluation. /[id number]/MODL MTDD
--- NOTE | 2017-11-21 17:16 | SOAPPROG ---
SOAP Progress Note Assessment/Plan: Assessment: Plan: Subjective: Pt seen, discussed with staff and Dr. Lopez. He reports being admitted due to increased AH's. States, "I didn't feel safe." Unclear what the precipitants might be except possibly recent med changes. He is agreeable to continuing previous meds for now. I will review previous records and discuss with Dr. Perez. Objective: Vital Signs Temp Pulse Resp BP Pulse Ox 36.6 C 73 14 114/64 97 11/21/17 09:45 11/21/17 09:45 11/21/17 09:45 11/21/17 09:45 11/21/17 09:45 MSE: Calm, coop. Poorly groomed. Affect is blunted, stable. Mood is "OK." TP is linear. TC reveals continued AH's. - Time Spent With Patient Time Spent With Patient: 15" ICD10 Worksheet Patient Problems: Problems Problem Status Onset Schizoaffective disorder Acute Suicidal ideation Acute Acute psychosis Acute Forearm laceration involving tendon Acute Marijuana abuse Acute Self-inflicted injury Acute
[2017-11-22] MEDS ORDERED: IBUPROFEN 200 MG TAB PO PRN (09:16)
--- NOTE | 2017-11-22 11:51 | ASMTCMCOM ---
CM Note CM Note Notes: Pt. denied SI and HI. Pt. reports hearing voices, but "not really" currently Pt. stated he has some paranoia, about "people sneaking into my room". Pt. reports no current legal issues. Pt. reports "sometimes use minor amounts of alcohol". Pt. denies his drinking being an issue. Pt. stated his psychiatrist is Dr. Cao and therapist is Dominga with [facility]. Pt. presents as calm, delayed at times in his responses, poor eye contact, and somewhat guarded. Date Signed: 11/22/2017 11:50 AM Electronically Signed By:Indigo Donald
--- NOTE | 2017-11-22 15:29 | ASMTBHMTP ---
Master Treatment Plan Master Treatment Plan Answers: Depressed Mood with for: Suicidal Ideation Date: 11/22/2017 Diagnosis on Admission: Schizoaffective Disorder Expected length of stay: 3-5 Days Reason for admission: Notes: Per [facility] evaluation - Pt. is a 27 year old, single, employed, male with known history of schizoaffective disorder, bipolar type and marijuana abuse, who initially self-presented to [facility] ED accompanied by his mother, Helen Gary [phone], with chief complaint of worsening auditory and visual hallucinations, paranoia, suicidal ideation over the last few days Patient's stated presenting problems: Notes: Hearing voices that were encouraging me to hurt myself and if I didn't the voices would hurt me. Patient's goals for treatment: Notes: To feel little more independent from the voices Patient's strengths: Notes: Unsure at this time Identify supports outside of hospital: Notes: Parents Discharge criteria: Notes: Suicidal ideation will resolve and patient will have a plan to safely manage recurrent suicidal ideation Initial disposition plan/considerations: Notes: Likely be going home and live with parents. No current job or schooling. Master Treatment Plan Required Signatures Psychiatrist signature: Answers: Psychiatrist: RN on-shift signature: Answers: RN: Patient signature: Answers: Patient: Date Signed: 11/22/2017 09:13 AM Electronically Signed By:Indigo Donald
[2017-11-22] MEDS: GABAPENTIN 300 MG CAP PO SCH ×2 (15:40→21:02)
--- NOTE | 2017-11-22 15:45 | BAPA ---
[f rep st] ADMISSION PSYCHIATRIC ASSESSMENT DATE OF SERVICE: 11/21/2017 REASON FOR ADMISSION: The patient is a 27-year-old male with a history of schizoaffective disorder. He is a longtime client of [facility], having worked with Dr. Ordoñez and now with Jewels Perez. He is also a long-time outpatient patient of Dr. Yvan Lopez for ongoing supportive and m aintenance ECT. He presented to the hospital on this occasion due to increasing auditory hallucinati ons, which he stated were command in nature telling him to cut himself. This has been an ongoing pro blem for him with a pattern of worsening in the evening when he hears multiple intrusive, loud, and t hreatening voices. I spoke with Dr. Perez and Dr. Lopez and Dr. Perez states that a recent tria l of Vraylar has been ineffective. They were able to titrate to 4.[address] Lopez believes that this may also have contributed to some mood destabilization. Regardless, there is a consensus opinio n that he has not improved. It is the opinion of the entire team that the increasingly pressing natu re of the patient's thoughts of self-harm are concerning given a previous history of severe injury in similar circumstances. When I speak with the patient, he corroborates this stating that "the voices have been really bad." He states that he is willing to do whatever the team recommends in regard to medication management and, "I just want to feel better." He is agreeable to inpatient treatment at this time in order to achieve these goals. I discussed the case as mentioned with Dr. Perez, who b elieves that perhaps a change to Clozaril at this time would be most effective. He had a brief trial in the past and it is unclear why this was discontinued. The patient does not remember either. At the time of this writing, I have not made successful contact with his parents, though we will certain ly do this to obtain additional history. The patient is agreeable after discussion of the possible u se of clozapine. PAST PSYCHIATRIC HISTORY: The patient has a history of acute mental illness since his senior year in high school when he experienced a manic episode. He then went on to develop psychotic symptoms in [facility] and has been fairly well disabled since that time. He was seen initially by Dr. Mullins nd then Dr. Ordoñez and now Dr. Lopez also. Dr. Muro first evaluated the patient in July of 2016 , and his dictation from that time indicates a diagnosis of schizoaffective disorder, bipolar type, a nd with the recommendation for treatment with ECT, specifically aimed at helping stabilize his mood. The patient has had numerous medication treatments over time that are well documented in the chart. ALLERGIES: Listed to ketamine, morphine, and oxycodone. CURRENT MEDICATIONS: Include Ativan 1 mg daily as needed for anxiety and gabapentin 300 mg t.i.d., L -methylfolate 1500 mg at bedtime, Lamictal 275 mg at bedtime, lithium carbonate 1500 mg at bedtime, a nd Vraylar 4.5 mg at bedtime. PAST MEDICAL HISTORY: Noncontributory for any history of systemic illness or other central nervous s ystem disease. SOCIAL HISTORY: The patient is single and lives with his parents in [place]. He has 2 sisters with whom he was reported to have a close relationship. He is not currently employed. Has a past history of marijuana and synthetic marijuana use, though denies any recent alcohol use. He does have a hist ory also of alcohol use, though denies any recent use of this as well. The patient has a bachelor's degree from from 2017, in finance. He has previously worked at [employer]. The patient enjoys playing [employer], skiing, playing the drums, and climbing with his father. ADMISSION LABORATORY: CBC shows an H and H low at 13.0 and 39.1, respectively with a normal MCV at 8 8.9. Serum chemistries are normal. Hemoglobin A1c is in the normal range of 5.2. Liver function is normal. Lipid profile shows no elevations and his cholesterol is actually low at 112. The triglyce rides are normal at 101. Urine drug screen is negative for all substances. Alcohol is less than det ectable. MENTAL STATUS EXAMINATION: Reveals a thin, though healthy-appearing male. He is somewhat disheveled with his hair standing up, though he is appropriately interactive, pleasant, and cooperati ve. His affect is somewhat blunted though stable and appropriate. His mood is described as "okay." His thought process is linear and goal directed. His thought content reveals continued auditory alley lucinations of a command nature telling him he is a "bad person" and that he should kill himself. He also describes feeling "paranoid" especially in the evenings related to the voices and feeling like someone was trying to harm him. He is alert and oriented to person, place, time, and situation, and his sensorium is clear. His intellect appears to be average to above average as evidenced by his edu cational and occupational histories, fund of knowledge, and vocabulary. He denies an active intent t o harm himself or kill himself, though he does continue to have command auditory hallucinations sayin g to kill himself or to cut himself. His insight and judgment appear to be good. IMPRESSION: Schizoaffective disorder, bipolar type, chronic with acute exacerbation. Chronic illnes s, recent exacerbation command auditory hallucinations, telling him to kill himself. The patient is a 27-year-old male, well known to us with a history of schizoaffective disor maty. His current clinical course is concerning given that he is having the pressing hallucinations t hat in the past have caused him to act to seriously injure himself. I think it is very appropriate f or him to be in the hospital at this time in order to provide for his safety and possibly consider me dication changes. I will discuss with the patient's parents the possible transition from Vraylar to clozapine. I discussed this with the patient including a review of the risks, benefits, and alternat quinton, including the risk of neutropenia or agranulocytosis and he states that he is agreeable to a tr ial. PLAN: 1. Admit to the behavioral health services inpatient unit on an M1 hold. 2. Proceed with obtaining additional information from his parents as above. 3. Consider use of clozapine in place of Vraylar. 4. Engage in individual, group, and milieu psychotherapies. 5. Consider continuing ECT as Dr. Lopez has recommended this. Patient's parents have voiced a conc obie that they believe the ECT worsens his hallucinations in the day or 2 after treatments. This is c ertainly not a common scenario and I question whether it might be prudent to administer at least one treatment here and observe the patient afterward to see if in fact we observe the same thing. I will discuss this with the patient and his parents. The patient has actually already stated that he woul d be willing to proceed with ECT order for this purpose. Estimated length of stay is 5-7 days. /[id number]/MODL
[2017-11-22] MEDS: lamoTRIgine 25 MG TAB PO SCH (20:27)
[2017-11-22] MEDS: lamoTRIgine 100 MG TAB PO SCH (20:27)
[2017-11-22] MEDS: LITHIUM CARBONATE ER 300 MG TAB PO SCH (20:28)
[2017-11-22] MEDS ORDERED: VRAYLAR 4.5 MG PO SCH (21:00)
[2017-11-22] MEDS ORDERED: METHYLFOLATE 15 MG PO SCH (21:00)
[2017-11-22] MEDS: cloZAPine 25 MG TAB PO SCH (21:02)
[2017-11-22] MEDS: CHOLECALCIFEROL VIT D3 1,000 UNITS TAB PO SCH (21:02)
[2017-11-23] MEDS ORDERED: NS 1,000 ML IV PRN (06:00)
[2017-11-23] MEDS ORDERED: ONDANSETRON DISINTEGRATING 4 MG TAB PO PRN (06:00)
[2017-11-23] MEDS ORDERED: CITRIC ACID/SODIUM CITRATE 30 ML UDCUP PO PRN (06:00)
[2017-11-23] MEDS: GABAPENTIN 300 MG CAP PO SCH ×3 (08:30→20:43)
[2017-11-23] MEDS ORDERED: fentaNYL 100 MCG/2 ML INJ ONE (10:15)
[2017-11-23] MEDS ORDERED: ONDANSETRON 4 MG/2 ML VIAL ONE (10:15)
[2017-11-23] MEDS ORDERED: ONDANSETRON DISINTEGRATING 4 MG TAB ONE (10:15)
[2017-11-23] MEDS ORDERED: SUCCINYLCHOLINE CHLORIDE 200 MG/10 ML VIAL ONE (10:15)
[2017-11-23] MEDS ORDERED: CITRIC ACID/SODIUM CITRATE 30 ML UDCUP ONE (10:15)
[2017-11-23] MEDS ORDERED: GLYCOPYRROLATE 0.2 MG/1 ML VIAL ONE (10:15)
[2017-11-23] MEDS ORDERED: MIDAZOLAM 2 MG/2 ML VIAL ONE (10:15)
[2017-11-23] MEDS ORDERED: ROCURONIUM 50 MG/5 ML VIAL ONE (10:15)
[2017-11-23] MEDS ORDERED: ETOMIDATE 20 MG/10 ML VIAL ONE (10:15)
--- NOTE | 2017-11-23 11:08 | PDMN ---
Medical Necessity Medical necessity: Pt meets inpt criteria per MD order and [facility] [id number] Schizophrenia Spectrum Disorders, Adult: Inpatient Care. Pt w/hx of schizoaffective disorder, presents w/increasing auditory hallucinations, thoughts of self harm, hx of self injury, on M-1 Hold requiring inpt eval and treatment for acute exacerbation of schizoaffective disorder, bipolar type.
--- NOTE | 2017-11-23 12:51 | PDANEPAE ---
ECT Pre Anesthetic Evaluation Allergies/Adverse Reactions: ketamine Allergy (Verified 11/20/17 22:10) nausea/vomiting morphine Allergy (Verified 11/20/17 22:10) psychosis oxycodone Allergy (Verified 11/20/17 22:10) psychosis Patient ID confirmed: Yes H&P reviewed: Yes Pre-anesthetic history reviewed: Yes Heart: regular rate and rhythym, no murmur, rub, or gallop Lungs: no respiratory distress, clear to auscultation Mallampati Score: Class 1 ASA Status: II Home Medications: Medication Instructions Recorded lamoTRIgine [LamICTAL 100 MG (*)] 250 mg PO HS 10/07/16 Vraylar 4.5 mg PO HS 08/29/17 Cholecalciferol Vit D3 [Vitamin D3 1,000 units PO HS 11/21/17 (*)] Gabapentin [Neurontin 300 MG (*)] 300 mg PO TID 11/21/17 Ibuprofen [Motrin (*)] 400 mg PO DAILY PRN 11/21/17 L-Methylfolate 15m Cap 15 mg PO HS 11/21/17 LORazepam [Ativan (*)] 1 - 2 mg PO DAILY PRN 11/21/17 [place] Carbonate ER [Lithobid 300 1,500 mg PO HS 11/21/17 mg (*)] lamoTRIgine [LamICTAL] 25 mg PO HS 11/21/17 Medication review: completed Patient interviewed: Yes Patient examined: Yes Anesthetic plan discussed with patient: Yes Anesthetic risks discussed with patient: Yes ECT Pre-Anesthetic History - Height & Weight Height: 180.34 cm Weight: 72.575 kg BMI: 22.33 - Anesthesia History Hx Anesthesia Complications (with details): None Family Hx Anesthesia Complications: None - Medications In the Past 6 Months the Patient Has Taken: Aspirin - Tobacco/Alcohol/Drug Use Smoking Status: Current every day smoker Hx Drug/Substance Abuse: No Alcohol Use: Yes - Prior Surgeries/Hospitalizations Prior Surgeries: Fracture repair of left femur - Pulmonary History ECT Hx Asthma: No Hx Abnormal Chest X-Ray: No Hx Oxygen in Use at Home: No - Cardiovascular History Hx Hypertension: No Currently Uses Hypertension Medication: No Hx Arrhythmias: No Hx Palpitations: No Hx Chest Pain: No Hx Coronary Artery / Peripheral Vascular Disease: No Hx Blood Clot: No - Neurologic History Hx Cerebrovascular Accident: No Hx CT Scan Or MRI Of The Brain: No Hx Epilepsy, Convulsions, Seizures, Or Blackouts: No Hx Frequent Or Severe Headaches: No Hx Numbness: No Hx Neurologic Disorder: No - Dental History Current Dental Issues: None Dental History Comment: Pt. answered yes to "dentures, caps, bridges or braces. " Discussed with Dr. Eubanks. Will document specifics at next evaluation. Pt states he has one fake tooth. - Endocrine History Hx Diabetes: No Current Daily Insulin Injections: No Hx Thyroid Problems: No - Renal/Urologic History Hx Renal Disorders: No Hx Urinary Tract Problems: No - Liver History Hx Hepatic Disorders: No - Cancer History Hx Cancer: No - Hematology History Hx Unexplained Bleeding Of Any Type: No Hx Ease Of Bruising: No Hx Anemia: No - Gastrointestinal History Hx Gastroesophogeal Reflux Disease: No Hx Ulcers: No Hx Hiatal Hernia: No Hx Difficulty Swallowing: No - Musculoskeletal Hisory Hx Chronic Pain: No Hx Arthritis: No - Opthalmic History Hx Glaucoma: No Visual Assistive Devices: Contacts Hx Opthalmic Disorders: No - Other Health History Physical Disabililty: No Recent Cough, Cold, or Fever: No Significant Weight Loss In The Last 4 Months: No Possible the Patient Might be : No
--- NOTE | 2017-11-23 12:58 | PDECTPN ---
ECT Progress Note Patient Problems: Problems Problem Status Onset Code Schizoaffective disorder Acute F25.9 Suicidal ideation Acute R45.851 Acute psychosis Acute F23 Forearm laceration involving tendon Acute S51.819A, S56.920Y Marijuana abuse Acute F12.10 Self-inflicted injury Acute Z72.89 Date: 11/23/17 ECT provider: Gordy Noriega ECT EMG (sec): 27 ECT EEG (sec): 50 QIDS-SR Total Score: 3 QIDS-SR Question #12 Score: 0 MMSE Total Score (Max = 21): 20 Next ECT date: 11/26/17 Next ECT time: 07:00 Home medications: Medication Instructions Recorded lamoTRIgine [LamICTAL 100 MG (*)] 250 mg PO HS 10/07/16 Vraylar 4.5 mg PO HS 08/29/17 Cholecalciferol Vit D3 [Vitamin D3 1,000 units PO HS 11/21/17 (*)] Gabapentin [Neurontin 300 MG (*)] 300 mg PO TID 11/21/17 Ibuprofen [Motrin (*)] 400 mg PO DAILY PRN 11/21/17 L-Methylfolate 15m Cap 15 mg PO HS 11/21/17 LORazepam [Ativan (*)] 1 - 2 mg PO DAILY PRN 11/21/17 [place] Carbonate ER [Lithobid 300 1,500 mg PO HS 11/21/17 mg (*)] lamoTRIgine [LamICTAL] 25 mg PO HS 11/21/17 Medication review: completed Current treatment plan: acute phase, increased frequency cycle d/t exacerbation of symptoms Treatment plan frequency: 3 times per week ECT narrative: Pt seen in coverage for Dr. Lopez. He is known to me from previous coverage. He reports feeling "a little better." AH's have decreased but are still prominent. He remains aloof and internally preoccupied. He states he feels safe in the hospital but is unsure if he would be safe at home. He is in agreement with doing ECT today to determine if it makes his AH's worse. Affect is blunted, stable. Mood is "the same." TP generally linear, though delayed, abbreviated. TC reveals continued AH's, paranoia. Thoughts of self- harm and CAH telling him to harm and kill himself persist.
--- NOTE | 2017-11-23 13:44 | POSTANESTH ---
Post Anesthetic Evaluation Cardiovascular Status: Normal, Stable Respiratory Status: Normal, Stable Level of Consciousness/Mental Status: Can Participate in Eval, Alert and Oriented Pain Control: Adequate, Prn Tx Ordered Nausea/Vomiting Control: Adequate, Prn Tx Ordered Complications Possibly Related to Anesthesia: None Noted
[2017-11-23] MEDS: LITHIUM CARBONATE ER 300 MG TAB PO SCH (20:42)
[2017-11-23] MEDS: lamoTRIgine 100 MG TAB PO SCH (20:42)
[2017-11-23] MEDS: cloZAPine 25 MG TAB PO SCH (20:43)
[2017-11-23] MEDS: CHOLECALCIFEROL VIT D3 1,000 UNITS TAB PO SCH (20:43)
[2017-11-23] MEDS: lamoTRIgine 25 MG TAB PO SCH (20:43)
[2017-11-23] MEDS: METHYLFOLATE 15 MG PO SCH (20:47)
[2017-11-23] MEDS: VRAYLAR 4.5 MG PO SCH (20:47)
[2017-11-24] MEDS: GABAPENTIN 300 MG CAP PO SCH ×3 (08:31→20:30)
--- NOTE | 2017-11-24 15:20 | ASMTCMCOM ---
CM Note CM Note Notes: Pt. reports feeling "pretty well". Pt. stated he received ECT on Sunday, adding "it went well". Pt. reports sleeping "well", adding "still getting anxious at night". Pt. reports "getting good amount of food". Pt. reports no issues with his current medications. Pt. denies SI, HI, and VH. Pt. reports AH, "yeah, a little bit", adding they are not command hallucinations. Pt. reports paranoia about "peopele coming to hurt me". Pt. reports he is unsure how many ECT treatments he will need, but stated he has "had ECT quite a but in the past". Pt. reports no change in his psychosis since receiving ECT on Sunday. Date Signed: 11/24/2017 03:20 PM Electronically Signed By:Indigo Donald
--- NOTE | 2017-11-24 18:39 | SOAPPROG ---
SOAP Progress Note Assessment/Plan: Assessment: Per Dr. Noriega's ECT note: Pt seen in coverage for Dr. Lopez. He is known to me from previous coverage. He reports feeling "a little better." AH's have decreased but are still prominent. He remains aloof and internally preoccupied. He states he feels safe in the hospital but is unsure if he would be safe at home. He is in agreement with doing ECT today to determine if it makes his AH's worse. Affect is blunted, stable. Mood is "the same." TP generally linear, though delayed, abbreviated. TC reveals continued AH's, paranoia. Thoughts of self- harm and CAH telling him to harm and kill himself persist. Plan: 11/24/17 18:35 1. Patient reports some improvement in his AH. He said he still had "a little bit" of voices, but denied any CAH. 2. Patient denied any urges to cut or self-harm and denied any thoughts of suicide. 3. Patient willing to continue with next ECT on Sunday. 4. No complaint of SE's with titration of Clozaril. 5. Change to voluntary status. Subjective: Met with patient, reviewed chart and d/w staff. Patient told staff this AM that he his voices were still bothering him "a little bit," but he denied any command auditory hallucinations like he had prior to admission. He also denied any urge to cut and denied any SI. Patient had slightly more range of affect and more spontaneous speech. Objective: Vital Signs Temp Pulse Resp BP Pulse Ox 36.4 C 77 16 122/78 H 97 11/24/17 06:00 11/24/17 06:00 11/24/17 06:00 11/24/17 06:00 11/24/17 06:00 11/23/17 11/24/17 11/25/17 05:59 05:59 05:59 Intake Total 1100 Balance 1100 MSE: Affect: Mostly flat, some increased range of affect Mood: "Same" TP: Linear, delayed TC: Denies SI/HI today, no CAH, but still has some "voices" Insight/Judgment: Fair - Time Spent With Patient Time Spent With Patient: 15" - Pending Discharge Pending Discharge Within 24 Hours: No Pending Discharge Within 48 Hours: No ICD10 Worksheet Patient Problems: Problems Problem Status Onset Schizoaffective disorder Acute Suicidal ideation Acute Acute psychosis Acute Forearm laceration involving tendon Acute Marijuana abuse Acute Self-inflicted injury Acute
[2017-11-24] MEDS: lamoTRIgine 100 MG TAB PO SCH (20:29)
[2017-11-24] MEDS: CHOLECALCIFEROL VIT D3 1,000 UNITS TAB PO SCH (20:30)
[2017-11-24] MEDS: LITHIUM CARBONATE ER 300 MG TAB PO SCH (20:30)
[2017-11-24] MEDS: cloZAPine 25 MG TAB PO SCH (20:30)
[2017-11-24] MEDS: lamoTRIgine 25 MG TAB PO SCH (20:30)
[2017-11-24] MEDS: VRAYLAR 4.5 MG PO SCH (20:31)
[2017-11-24] MEDS: METHYLFOLATE 15 MG PO SCH (20:31)
[2017-11-25] MEDS: GABAPENTIN 300 MG CAP PO SCH ×3 (08:15→17:46)
--- NOTE | 2017-11-25 14:09 | ASMTCMCOM ---
CM Note CM Note Notes: Pt. reports "doing alright". Pt. stated he is "sleeping well", and "going to groups". Pt. stated his parents thought he seemed a bit sedated last night, pt. reports no issues with his current medications though. Pt. reports hearing voices "talking about me & talking about what their going to do to me. Talking about how unremarkable I am". Pt. stated the voices are non command. Pt. stated he has feeling of paranoia about "people sneaking in to harm me". Pt. denied SI and HI. Pt. stated in the past ECT has "helped get me out of this mood", feel less paranoid, and "decrease the intensity of the voices". Pt. requested to receive ECT on an outpatient bases. notified. Pt. is schedule for ECT Sunday11/26/17 at 0700. Date Signed: 11/25/2017 02:08 PM Electronically Signed By:Indigo Donald
[2017-11-25] MEDS: lamoTRIgine 100 MG TAB PO SCH (17:37)
[2017-11-25] MEDS: cloZAPine 25 MG TAB PO SCH (17:37)
[2017-11-25] MEDS: CHOLECALCIFEROL VIT D3 1,000 UNITS TAB PO SCH (17:37)
[2017-11-25] MEDS: lamoTRIgine 25 MG TAB PO SCH (17:38)
[2017-11-25] MEDS: LITHIUM CARBONATE ER 300 MG TAB PO SCH (17:38)
[2017-11-25] MEDS: VRAYLAR 4.5 MG PO SCH (17:43)
[2017-11-25] MEDS: METHYLFOLATE 15 MG PO SCH (17:43)
--- NOTE | 2017-11-25 17:46 | SOAPPROG ---
SOAP Progress Note Assessment/Plan: Assessment: Per Dr. Noriega's ECT note: Pt seen in coverage for Dr. Lopez. He is known to me from previous coverage. He reports feeling "a little better." AH's have decreased but are still prominent. He remains aloof and internally preoccupied. He states he feels safe in the hospital but is unsure if he would be safe at home. He is in agreement with doing ECT today to determine if it makes his AH's worse. Affect is blunted, stable. Mood is "the same." TP generally linear, though delayed, abbreviated. TC reveals continued AH's, paranoia. Thoughts of self- harm and CAH telling him to harm and kill himself persist. Plan: 11/24/17 18:35 1. Patient reports some improvement in his AH. He said he still had "a little bit" of voices, but denied any CAH. 2. Patient denied any urges to cut or self-harm and denied any thoughts of suicide. 3. Patient willing to continue with next ECT on Sunday. 4. No complaint of SE's with titration of Clozaril. 5. Change to voluntary status. 11/25/17 17:41 1. Patient says the "voices" keep a "running commentary" about him that is mostly negative and critical. But he denies any CAH to hurt himself. 2. POC report patient has been sleeping with light on in his room at night b/c he is afraid someone will come in and harm him. Patient denies any fear of a specific person. 3. Patient denies any SI/HI. 4. Staff report patient slept 9 hrs last night. 5. POC want to know how long titration of Clozaril will take. explained titration varies because patients experience clinical benefit at different doses. POC want to know if titration can be completed at [facility]. They would like him to discharge to [facility]. 6. MD encouraged patient and family to discuss number of acute ECT treatments with Dr. Noriega. Patient agreed he did want to continue with ECT tomorrow. Subjective: Met with patient and his parents, reviewed chart and d/w staff. Patient was sitting on his bed playing cards with his parents. He told MD that he doesn't feel any worse than when he was admitted. However, he says the voices have been "constant" since last . However, they are not telling him to hurt himself. He also admits to feeling paranoid that someone will come into his room at night, so he is sleeping with lights on. MD encouraged patient and family to allow time for Clozaril to start working. MD explained that dose will need to be titrated slowly to achieve therapeutic effect with lowest risk of SE' s. Parents would like patient to go to [facility] as soon as he's ready. Patient denied any thoughts, plan or intent to hurt himself or anyone else. Objective: Vital Signs Temp Pulse Resp BP Pulse Ox 36.6 C 87 16 112/72 97 11/25/17 06:00 11/25/17 06:00 11/25/17 06:00 11/25/17 06:00 11/25/17 06:00 11/24/17 11/25/17 11/26/17 05:59 05:59 05:59 Intake Total 1100 Balance 1100 MSE: Affect: Flat Mood: "The same" TP: Linear, delayed TC: Denies any SI/HI, still AH, but no CAH or VH Insight/Judgment: Fair - Time Spent With Patient Time Spent With Patient: 25" - Pending Discharge Pending Discharge Within 24 Hours: No Pending Discharge Within 48 Hours: No ICD10 Worksheet Patient Problems: Problems Problem Status Onset Schizoaffective disorder Acute Suicidal ideation Acute Acute psychosis Acute Forearm laceration involving tendon Acute Marijuana abuse Acute Self-inflicted injury Acute
[2017-11-26] MEDS ORDERED: NS 1,000 ML IV PRN (05:00)
[2017-11-26] MEDS ORDERED: ONDANSETRON DISINTEGRATING 4 MG TAB PO PRN (05:00)
[2017-11-26] MEDS ORDERED: CITRIC ACID/SODIUM CITRATE 30 ML UDCUP PO PRN (05:00)
[2017-11-26] MEDS ORDERED: MIDAZOLAM 2 MG/2 ML VIAL ONE (06:00)
[2017-11-26] MEDS ORDERED: SUCCINYLCHOLINE CHLORIDE 200 MG/10 ML VIAL ONE (06:00)
[2017-11-26] MEDS ORDERED: ONDANSETRON 4 MG/2 ML VIAL ONE (06:00)
[2017-11-26] MEDS ORDERED: GLYCOPYRROLATE 0.2 MG/1 ML VIAL ONE (06:00)
[2017-11-26] MEDS ORDERED: fentaNYL 100 MCG/2 ML INJ ONE (06:00)
[2017-11-26] MEDS ORDERED: ETOMIDATE 20 MG/10 ML VIAL ONE (06:00)
[2017-11-26] MEDS ORDERED: ROCURONIUM 50 MG/5 ML VIAL ONE (06:00)
[2017-11-26] MEDS ORDERED: CITRIC ACID/SODIUM CITRATE 30 ML UDCUP ONE (06:36)
[2017-11-26] MEDS ORDERED: ONDANSETRON DISINTEGRATING 4 MG TAB ONE (06:36)
--- NOTE | 2017-11-26 07:11 | PDECTPN ---
ECT Progress Note Patient Problems: Problems Problem Status Onset Code Schizoaffective disorder Acute F25.9 Suicidal ideation Acute R45.851 Acute psychosis Acute F23 Forearm laceration involving tendon Acute S51.819A, S56.929A Marijuana abuse Acute F12.10 Self-inflicted injury Acute Z72.89 Date: 11/26/17 ECT provider: Gordy Noriega Anesthesia: Justin Eubanks Pulse width: 0.5 ECT EMG (sec): 16 ECT EEG (sec): 18 ECT treatment type: bilateral QIDS-SR Total Score: 3 QIDS-SR Question #12 Score: 0 MMSE Total Score (Max = 21): 21 Next ECT date: 11/28/17 Next ECT time: 07:45 Home medications: Medication Instructions Recorded lamoTRIgine [LamICTAL 100 MG (*)] 250 mg PO HS 10/07/16 Vraylar 4.5 mg PO HS 08/29/17 Cholecalciferol Vit D3 [Vitamin D3 1,000 units PO HS 11/21/17 (*)] Gabapentin [Neurontin 300 MG (*)] 300 mg PO TID 11/21/17 Ibuprofen [Motrin (*)] 400 mg PO DAILY PRN 11/21/17 L-Methylfolate 15m Cap 15 mg PO HS 11/21/17 LORazepam [Ativan (*)] 1 - 2 mg PO DAILY PRN 11/21/17 [place] Carbonate ER [Lithobid 300 1,500 mg PO HS 11/21/17 mg (*)] lamoTRIgine [LamICTAL] 25 mg PO HS 11/21/17 Medication review: completed Current treatment plan: acute phase, increased frequency cycle d/t exacerbation of symptoms Treatment plan frequency: 3 times per week ECT narrative: Pt seen for continued acute course treatment. He reports increase in intensity and worsened tone of AH's after last ECT. He has been sleeping with the light on in his room due to fear. Behaviors remain stable with continued thoughts of self-harm, but no acting out. Affect is brighter. Mood is "OK." TP generally linear, less delayed, more fluent. TC reveals continued AH's, paranoia. Thoughts of self-harm and CAH telling him to harm and kill himself persist.
[2017-11-26] MEDS: GABAPENTIN 300 MG CAP PO SCH ×3 (08:32→21:02)
[2017-11-26] MEDS: LITHIUM CARBONATE ER 300 MG TAB PO SCH (21:02)
[2017-11-26] MEDS: lamoTRIgine 100 MG TAB PO SCH (21:02)
[2017-11-26] MEDS: CHOLECALCIFEROL VIT D3 1,000 UNITS TAB PO SCH (21:03)
[2017-11-26] MEDS: lamoTRIgine 25 MG TAB PO SCH (21:03)
[2017-11-26] MEDS: cloZAPine 25 MG TAB PO SCH (21:03)
[2017-11-26] MEDS: VRAYLAR 4.5 MG PO SCH (21:04)
[2017-11-26] MEDS: METHYLFOLATE 15 MG PO SCH (21:04)
[2017-11-27 07:59] LABS: PLATELET COUNT 243 10^3/uL (150-400)
[2017-11-27] MEDS: GABAPENTIN 300 MG CAP PO SCH ×3 (08:14→20:42)
--- NOTE | 2017-11-27 14:10 | ASMTBHFAM ---
Notes Note: Notes: CC participated in family meeting with client, father and doctor to discuss current condition, etc. Client started new medication (Clozaril) and needs to continue to go up with the dosages, etc. FOC and MOC noted, that they would prefer client step down to [facility] after discharge; however, only if insurance can help, etc. Client will continue to receive ECT tx and observe results, etc. Client will be here through the week. Date Signed: 11/27/2017 02:09 PM Electronically Signed By:Sonido Perez
--- NOTE | 2017-11-27 16:25 | SOAPPROG ---
SOAP Progress Note Assessment/Plan: Assessment: Plan: 11/27/17 16:26 Schizophrenia: Remains acutely psychotic. Crossover to cloz underway. Will CCM inc: acute course ECT through this week. Subjective: Pt seen, discussed with staff. Interviewed individually and with parents and CC in family meeting. He reports continued intrusive AH's of demeaning, hostile voices that tell him things like, "You're no good, you should just kill yourself" and "You're the reason other people kill themselves." He continues to sleep with the light on in his room due to increase in AH's at night. Tolerating cloz well. Mother remembers that it caused excessive sedation in the past. Pt agrees to continue acute course ECT through this week. I emphasized to all, including pt, that I was very concerned for his safety due to nature of voices. Objective: Vital Signs Temp Pulse Resp BP Pulse Ox 36.5 C 98 16 107/59 L 97 11/27/17 06:00 11/27/17 06:00 11/27/17 06:00 11/27/17 06:00 11/27/17 06:00 Laboratory Results 11/27/17 06:30 11/26/17 11/27/17 11/28/17 05:59 05:59 05:59 Intake Total 900 Balance 900 MSE: Calm, though somewhat stiff, guarded. Affect is constricted, stable. Mood is "OK." TP is abbreviated, generally linear, some delay. TC reveals continued loud, intrusive AH's inc: CAH to kill himself. - Time Spent With Patient Time Spent With Patient: 55" ICD10 Worksheet Patient Problems: Problems Problem Status Onset Schizoaffective disorder Acute Suicidal ideation Acute Acute psychosis Acute Forearm laceration involving tendon Acute Marijuana abuse Acute Self-inflicted injury Acute
[2017-11-27] MEDS: lamoTRIgine 25 MG TAB PO SCH (19:42)
[2017-11-27] MEDS: METHYLFOLATE 15 MG PO SCH (19:42)
[2017-11-27] MEDS: lamoTRIgine 100 MG TAB PO SCH (19:43)
[2017-11-27] MEDS: LITHIUM CARBONATE ER 300 MG TAB PO SCH (19:43)
[2017-11-27] MEDS: VRAYLAR 4.5 MG PO SCH (19:43)
[2017-11-27] MEDS: CHOLECALCIFEROL VIT D3 1,000 UNITS TAB PO SCH (20:42)
[2017-11-27] MEDS: cloZAPine 25 MG TAB PO SCH (20:42)
[2017-11-28] MEDS ORDERED: ONDANSETRON DISINTEGRATING 4 MG TAB PO PRN (05:00)
[2017-11-28] MEDS ORDERED: CITRIC ACID/SODIUM CITRATE 30 ML UDCUP PO PRN (05:00)
[2017-11-28] MEDS ORDERED: NS 1,000 ML IV PRN (05:00)
--- NOTE | 2017-11-28 08:28 | PDANEPAE ---
ECT Pre Anesthetic Evaluation Allergies/Adverse Reactions: ketamine Allergy (Verified 11/20/17 22:10) nausea/vomiting morphine Allergy (Verified 11/20/17 22:10) psychosis oxycodone Allergy (Verified 11/20/17 22:10) psychosis Patient ID confirmed: Yes H&P reviewed: Yes Pre-anesthetic history reviewed: Yes Heart: regular rate and rhythym, no murmur, rub, or gallop Lungs: no respiratory distress, clear to auscultation Mallampati Score: Class 1 ASA Status: I Home Medications: Medication Instructions Recorded lamoTRIgine [LamICTAL 100 MG (*)] 250 mg PO HS 10/07/16 Vraylar 4.5 mg PO HS 08/29/17 Cholecalciferol Vit D3 [Vitamin D3 1,000 units PO HS 11/21/17 (*)] Gabapentin [Neurontin 300 MG (*)] 300 mg PO TID 11/21/17 Ibuprofen [Motrin (*)] 400 mg PO DAILY PRN 11/21/17 L-Methylfolate 15m Cap 15 mg PO HS 11/21/17 LORazepam [Ativan (*)] 1 - 2 mg PO DAILY PRN 11/21/17 [place] Carbonate ER [Lithobid 300 1,500 mg PO HS 11/21/17 mg (*)] lamoTRIgine [LamICTAL] 25 mg PO HS 11/21/17 Medication review: completed Patient interviewed: Yes Patient examined: Yes Anesthetic plan discussed with patient: Yes Anesthetic risks discussed with patient: Yes ECT Pre-Anesthetic History - Height & Weight Height: 180.34 cm Weight: 70.392 kg BMI: 21.65 - Anesthesia History Hx Anesthesia Complications (with details): None Family Hx Anesthesia Complications: None - Medications In the Past 6 Months the Patient Has Taken: Aspirin - Tobacco/Alcohol/Drug Use Smoking Status: Current every day smoker Hx Drug/Substance Abuse: No Alcohol Use: Yes - Prior Surgeries/Hospitalizations Prior Surgeries: Fracture repair of left femur - Pulmonary History ECT Hx Asthma: No Hx Abnormal Chest X-Ray: No Hx Oxygen in Use at Home: No - Cardiovascular History Hx Hypertension: No Currently Uses Hypertension Medication: No Hx Arrhythmias: No Hx Palpitations: No Hx Chest Pain: No Hx Coronary Artery / Peripheral Vascular Disease: No Hx Blood Clot: No - Neurologic History Hx Cerebrovascular Accident: No Hx CT Scan Or MRI Of The Brain: No Hx Epilepsy, Convulsions, Seizures, Or Blackouts: No Hx Frequent Or Severe Headaches: No Hx Numbness: No Hx Neurologic Disorder: No - Dental History Current Dental Issues: None Dental History Comment: Pt. answered yes to "dentures, caps, bridges or braces. " Discussed with Dr. Eubanks. Will document specifics at next evaluation. Pt states he has one fake tooth. - Endocrine History Hx Diabetes: No Current Daily Insulin Injections: No Hx Thyroid Problems: No - Renal/Urologic History Hx Renal Disorders: No Hx Urinary Tract Problems: No - Liver History Hx Hepatic Disorders: No - Cancer History Hx Cancer: No - Hematology History Hx Unexplained Bleeding Of Any Type: No Hx Ease Of Bruising: No Hx Anemia: No - Gastrointestinal History Hx Gastroesophogeal Reflux Disease: No Hx Ulcers: No Hx Hiatal Hernia: No Hx Difficulty Swallowing: No - Musculoskeletal Hisory Hx Chronic Pain: No Hx Arthritis: No - Opthalmic History Hx Glaucoma: No Visual Assistive Devices: Contacts Hx Opthalmic Disorders: No - Other Health History Physical Disabililty: No Recent Cough, Cold, or Fever: No Significant Weight Loss In The Last 4 Months: No Possible the Patient Might be : No
--- NOTE | 2017-11-28 08:29 | PDECTPN ---
ECT Progress Note Patient Problems: Problems Problem Status Onset Code Schizoaffective disorder Acute F25.9 Suicidal ideation Acute R45.851 Acute psychosis Acute F23 Forearm laceration involving tendon Acute S51.819A, S56.929A Marijuana abuse Acute F12.10 Self-inflicted injury Acute Z72.89 Date: 11/28/17 ECT provider: oGrdy Noriega Anesthesia: Justin Eubanks Stimulus dose (%): 100 Pulse width: 0.5 ECT EMG (sec): 25 ECT EEG (sec): 37 ECT treatment type: bilateral QIDS-SR Total Score: 4 QIDS-SR Question #12 Score: 0 MMSE Total Score (Max = 21): 20 Next ECT date: 11/30/17 Next ECT time: 09:00 O/P psychiatrist follow up: direct communication, phone, voice message Home medications: Medication Instructions Recorded lamoTRIgine [LamICTAL 100 MG (*)] 250 mg PO HS 10/07/16 Vraylar 4.5 mg PO HS 08/29/17 Cholecalciferol Vit D3 [Vitamin D3 1,000 units PO HS 11/21/17 (*)] Gabapentin [Neurontin 300 MG (*)] 300 mg PO TID 11/21/17 Ibuprofen [Motrin (*)] 400 mg PO DAILY PRN 11/21/17 L-Methylfolate 15m Cap 15 mg PO HS 11/21/17 LORazepam [Ativan (*)] 1 - 2 mg PO DAILY PRN 11/21/17 [place] Carbonate ER [Lithobid 300 1,500 mg PO HS 11/21/17 mg (*)] lamoTRIgine [LamICTAL] 25 mg PO HS 11/21/17 Current treatment plan: acute phase, increased frequency cycle d/t exacerbation of symptoms Treatment plan frequency: 3 times per week ECT narrative: Pt is seen for continued acute course treatment. He reports improved mood and decreased intensity of AH's. Continues to sleep with the light on in his room, but states he slept well. Had family meeting with patient and his parents yesterday. That went well. All on board for current treatment plan. Affect is slightly blunted, but generally euthymic. Mood is "OK." TP generally linear. TC reveals continued AH's, paranoia. Thoughts of self-harm and CAH telling him to harm and kill himself persist, but improved today. Underwent bilateral ECT without complication. Will continue acute care treatment through 11/30/17. Continue titration of cloz.
[2017-11-28] MEDS: GABAPENTIN 300 MG CAP PO SCH ×3 (11:54→21:29)
--- NOTE | 2017-11-28 13:39 | ASMTCMCOM ---
CM Note CM Note Notes: Pt. had ECT this morning. Pt. reported that he is doing fine and that he feels OK after ECT. He plans to resume services at [facility] when he is ready for discharge. Date Signed: 11/28/2017 01:37 PM Electronically Signed By:Dipika Rose
[2017-11-28] MEDS: cloZAPine 100 MG TAB PO SCH (21:28)
[2017-11-28] MEDS: CHOLECALCIFEROL VIT D3 1,000 UNITS TAB PO SCH (21:28)
[2017-11-28] MEDS: LITHIUM CARBONATE ER 300 MG TAB PO SCH (21:29)
[2017-11-28] MEDS: lamoTRIgine 100 MG TAB PO SCH (21:29)
[2017-11-28] MEDS: METHYLFOLATE 15 MG PO SCH (21:31)
[2017-11-29] MEDS: GABAPENTIN 300 MG CAP PO SCH ×3 (08:27→17:46)
[2017-11-29] MEDS: LITHIUM CARBONATE ER 300 MG TAB PO SCH (17:36)
[2017-11-29] MEDS: lamoTRIgine 100 MG TAB PO SCH (17:36)
[2017-11-29] MEDS: METHYLFOLATE 15 MG PO SCH (17:45)
--- NOTE | 2017-11-29 18:38 | SOAPPROG ---
SOAP Progress Note Assessment/Plan: Assessment: Plan: 11/27/17 16:26 Schizophrenia: Remains acutely psychotic. Crossover to cloz underway. Will CCM inc: acute course ECT through this week. 11/29/17 18:45 Schizoaffective D/o: Calmer, though concerning, high-lethality CAH's continue. He acknowledges not feeling in control of these and not believing he would be safe if he was not in the hospital. Will CCM inc: acute course ECT and titration of clozapine. Pt is in agreement with this. Subjective: Pt seen, discussed with staff. Reports having "really intense, potentially destructive voices" last night. He states, "I'm glad I was here or I don't know what I would've done." When asked what he meant, he states, "I know I would have cut myself or worse." He is calm and cooperative on the unit, no behavioral problems, though tends to isolate and struggles to communicate with others. Tolerating clozapine well. Objective: Vital Signs Temp Pulse Resp BP Pulse Ox 36.8 C 98 16 123/69 H 96 11/29/17 06:00 11/29/17 06:00 11/29/17 06:00 11/29/17 06:00 11/29/17 06:00 Laboratory Results 11/27/17 06:30 11/28/17 11/29/17 11/30/17 05:59 05:59 05:59 Intake Total 1030 Balance 1030 MSE: Calm, coop, though guarded. Several times during interview, when I ask him a question, he slowly closes his eyes and lowers his chin to his chest. He doesn't respond for at least thirty seconds, and then he gives a thoughtful answer. His TP is abbreviated, delayed, blocked at times. TC reveals ongoing 's inc: "loud voices - that's what I'll call them - that tell me either I kill myself or they'll take care of it themselves." - Time Spent With Patient Time Spent With Patient: 25" ICD10 Worksheet Patient Problems: Problems Problem Status Onset Acute psychosis Acute Forearm laceration involving tendon Acute Self-inflicted injury Acute Marijuana abuse Acute Schizoaffective disorder Acute Suicidal ideation Acute
[2017-11-29] MEDS: cloZAPine 100 MG TAB PO SCH (21:12)
[2017-11-29] MEDS: CHOLECALCIFEROL VIT D3 1,000 UNITS TAB PO SCH (21:12)
[2017-11-30] MEDS ORDERED: NS 1,000 ML IV PRN (04:00)
[2017-11-30] MEDS ORDERED: ONDANSETRON DISINTEGRATING 4 MG TAB PO PRN (04:00)
[2017-11-30] MEDS ORDERED: CITRIC ACID/SODIUM CITRATE 30 ML UDCUP PO PRN (04:00)
[2017-11-30] MEDS ORDERED: ONDANSETRON DISINTEGRATING 4 MG TAB ONE (06:10)
[2017-11-30] MEDS ORDERED: CITRIC ACID/SODIUM CITRATE 30 ML UDCUP ONE (06:10)
--- NOTE | 2017-11-30 07:30 | PDECTPN ---
ECT Progress Note Patient Problems: Problems Problem Status Onset Code Schizoaffective disorder Acute F25.9 Suicidal ideation Acute R45.851 Acute psychosis Acute F23 Forearm laceration involving tendon Acute S51.819A, S56.929A Marijuana abuse Acute F12.10 Self-inflicted injury Acute Z72.89 Date: 11/30/17 ECT provider: Gordy Noriega Anesthesia: Justin Eubanks Stimulus dose (%): 100 Pulse width: 0.5 ECT EMG (sec): 19 ECT EEG (sec): 29 ECT treatment type: bilateral QIDS-SR Total Score: 4 QIDS-SR Question #12 Score: 0 MMSE Total Score (Max = 21): 21 Next ECT date: 12/03/17 Next ECT time: 13:15 O/P psychiatrist follow up: direct communication, phone, voice message Home medications: Medication Instructions Recorded lamoTRIgine [LamICTAL 100 MG (*)] 250 mg PO HS 10/07/16 Vraylar 4.5 mg PO HS 08/29/17 Cholecalciferol Vit D3 [Vitamin D3 1,000 units PO HS 11/21/17 (*)] Gabapentin [Neurontin 300 MG (*)] 300 mg PO TID 11/21/17 Ibuprofen [Motrin (*)] 400 mg PO DAILY PRN 11/21/17 L-Methylfolate 15m Cap 15 mg PO HS 11/21/17 LORazepam [Ativan (*)] 1 - 2 mg PO DAILY PRN 11/21/17 [place] Carbonate ER [Lithobid 300 1,500 mg PO HS 11/21/17 mg (*)] lamoTRIgine [LamICTAL] 25 mg PO HS 11/21/17 Medication review: completed Current treatment plan: acute phase, increased frequency cycle d/t exacerbation of symptoms Treatment plan frequency: 3 times per week ECT narrative: Pt is seen for continued acute course treatment. He remains on the inpatient unit. (Please see note from yesterday re: tone of CAH's.) He continues to struggle with the hallucinations, sleeping with the light on for confidence. Tolerating cloz well. Overall appears calmer and more organized, less internally preoccupied, though this is a matter of degree. Underwent bilateral ECT without complication. Will continue acute care treatment through 11/30/17. Continue titration of cloz.
[2017-11-30] MEDS: GABAPENTIN 300 MG CAP PO SCH ×3 (08:52→20:56)
--- NOTE | 2017-11-30 11:37 | ASMTBHDC ---
Notes Note: Notes: Client attended treatment team meeting with provider, nurse, community development director CC's and therapist. Client was engaging, limited eye contact and slow responses to questions; however, please note that client received ECT TX this morning. Client was appropriate during the meeting and voiced that he would like to return to [facility] on an out-paitent level. Discharge is still not clear due to ECT/medication progress and observation. Sign in sheet was placed in his file.* Date Signed: 11/30/2017 11:36 AM Electronically Signed By:Sonido Perez
[2017-11-30] MEDS: lamoTRIgine 100 MG TAB PO SCH (20:56)
[2017-11-30] MEDS: LITHIUM CARBONATE ER 300 MG TAB PO SCH (20:56)
[2017-11-30] MEDS: CHOLECALCIFEROL VIT D3 1,000 UNITS TAB PO SCH (20:56)
[2017-11-30] MEDS: cloZAPine 100 MG TAB PO SCH (20:57)
[2017-11-30] MEDS: METHYLFOLATE 15 MG PO SCH (20:58)
[2017-12-01] MEDS: GABAPENTIN 300 MG CAP PO SCH ×3 (09:18→20:28)
--- NOTE | 2017-12-01 15:02 | SOAPPROG ---
SOAP Progress Note Assessment/Plan: Assessment: Per Dr. Noriega's ECT note: Pt is seen for continued acute course treatment. He remains on the inpatient unit. (Please see note from yesterday re: tone of CAH's.) He continues to struggle with the hallucinations, sleeping with the light on for confidence. Tolerating cloz well. Overall appears calmer and more organized, less internally preoccupied, though this is a matter of degree. Underwent bilateral ECT without complication. Will continue acute care treatment through 11/30/17. Continue titration of cloz. Plan: 12/01/17 14:58 1. Patient appears to have brighter affect, more range of affect than he did last weekend. He has been attending art therapy groups and seems more engaged with peers and milieu activities (though this is only relative to his initial presentation). 2. Still c/o paranoia at night about people coming into his room. 3. No change to clozaril dose or other meds this w/e. 4. Possible d/c next week home with f/u through [facility]. 5. Voluntary, expect to stay through w/e. Subjective: Met with patient, reviewed chart and d/w staff. Patient attended art therapy group yesterday and seems to have more ranger of affect than when MD saw him last weekend. He still c/o paranoia, mostly at night, about people coming into his room. He is still sleeping with light on at night. However, he appears much less preoccupied with AH and internal stimuli than prior to ECT. Objective: Vital Signs Temp Pulse Resp BP Pulse Ox 36.6 C 90 14 107/56 L 96 12/01/17 06:00 12/01/17 06:00 12/01/17 06:00 12/01/17 06:00 12/01/17 06:00 Laboratory Results 11/27/17 06:30 11/30/17 12/01/17 12/02/17 05:59 05:59 05:59 Intake Total 1000 Balance 1000 MSE: Affect: More range of affect Mood: "OK" TP: Linear, logical TC: Reports AH, no SI/HI, still has paranoid delusions Insight/Judgment: Fair - Time Spent With Patient Time Spent With Patient: 15" - Pending Discharge Pending Discharge Within 24 Hours: No Pending Discharge Within 48 Hours: No ICD10 Worksheet Patient Problems: Problems Problem Status Onset Schizoaffective disorder Acute Suicidal ideation Acute Acute psychosis Acute Forearm laceration involving tendon Acute Marijuana abuse Acute Self-inflicted injury Acute
--- NOTE | 2017-12-01 16:02 | ASMTBHDC ---
Notes Note: Notes: Patient is pleasant and cooperative. He was resting in bed after attending a group. Patient states he is eating his meals in the dinning area and attending most groups. When his is not attending groups he is in his room. He reports sleeping well and eating well. Staff reports that he slept 6.5 hours last night. His discharge plan is to go home to live with his family and to follow up with [facility] outpatient program. Date Signed: 12/01/2017 04:01 PM Electronically Signed By:Marina Muir
[2017-12-01] MEDS: LITHIUM CARBONATE ER 300 MG TAB PO SCH (20:22)
[2017-12-01] MEDS: lamoTRIgine 100 MG TAB PO SCH (20:22)
[2017-12-01] MEDS: cloZAPine 100 MG TAB PO SCH (20:23)
[2017-12-01] MEDS: CHOLECALCIFEROL VIT D3 1,000 UNITS TAB PO SCH (20:23)
[2017-12-01] MEDS: METHYLFOLATE 15 MG PO SCH (20:28)
[2017-12-02] MEDS: GABAPENTIN 300 MG CAP PO SCH ×3 (08:40→16:39)
--- NOTE | 2017-12-02 13:51 | ASMTBHFAM ---
Notes Note: Notes: KYRIE spoke with Joss Gary, who confirmed that Layton is welcome to return to their home upon discharge. He stated, "Our primary concern is that he feels safe here. We are happy to also explore outpatient resources with [facility]" as they have in the past. Layton will continue to see his OP providers with [facility] as well. Joss reported that they do not expect Layton to step down to [facility] unless that becomes a recommendation from [facility] or [facility]. Date Signed: 12/02/2017 01:51 PM Electronically Signed By:Shwetha Jurado
--- NOTE | 2017-12-02 15:38 | SOAPPROG ---
SOAP Progress Note Assessment/Plan: Assessment: Per Dr. Noriega's ECT note: Pt is seen for continued acute course treatment. He remains on the inpatient unit. (Please see note from yesterday re: tone of CAH's.) He continues to struggle with the hallucinations, sleeping with the light on for confidence. Tolerating cloz well. Overall appears calmer and more organized, less internally preoccupied, though this is a matter of degree. Underwent bilateral ECT without complication. Will continue acute care treatment through 11/30/17. Continue titration of cloz. Plan: 12/01/17 14:58 1. Patient appears to have brighter affect, more range of affect than he did last weekend. He has been attending art therapy groups and seems more engaged with peers and milieu activities (though this is only relative to his initial presentation). 2. Still c/o paranoia at night about people coming into his room. 3. No change to clozaril dose or other meds this w/e. 4. Possible d/c next week home with f/u through [facility]. 5. Voluntary, expect to stay through w/e. 12/02/17 15:32 1. Patient says he feels "marginally better" this weekend. 2. Patient slept 8 hrs which is improvement over last night. 3. CC spoke to POC today who stated they are comfortable with patient returning home and attending day tx program through [facility] rather than patient going to [facility]. 4. Patient appears much calmer and less distressed by AH, however, states he still feels like he is in an "uncomfortable" place but denies any CAH. 5. Next ECT on Sunday. Subjective: Met with patient, reviewed chart and d/w staff. Patient has continued to present with brighter affect and more social interaction with peers and staff over the weekend. He still has response latency in answering questions, but in general seems much more engaged with peers and milieu activities. Last weekend, hardly ever saw patient leave his room. This weekend, he has attended all groups, has been present in milieu and MD observed him have multiple conversations with peers. Patients states art therapy has been particularly enjoyable and gives him "something else to think" about other than AH. Patient still expresses paranoia that "some group of people" is watching him and might try to hurt him. However, he "doesn't know who they are," but worries about them most at night. He has been sleeping with lights on in his room since admission. Some nights he has difficulty falling asleep b/c of his fears. However, last night he had better night's sleep. Objective: Vital Signs Temp Pulse Resp BP Pulse Ox 36.6 C 98 16 108/71 96 12/02/17 06:00 12/02/17 06:00 12/02/17 06:00 12/02/17 06:00 12/02/17 06:00 Laboratory Results 11/27/17 06:30 12/01/17 12/02/17 12/03/17 05:59 05:59 05:59 Intake Total 1000 Balance 1000 MSE: Affect: Flat, but occasionally has increased range Mood: "OK" TP: Linear TC: Denies any SI/HI, still has AH, but no CAH, some paranoia Insight/ Judgment: Fair - Time Spent With Patient Time Spent With Patient: 25" - Pending Discharge Pending Discharge Within 24 Hours: No Pending Discharge Within 48 Hours: No ICD10 Worksheet Patient Problems: Problems Problem Status Onset Schizoaffective disorder Acute Suicidal ideation Acute Acute psychosis Acute Forearm laceration involving tendon Acute Marijuana abuse Acute Self-inflicted injury Acute
[2017-12-02] MEDS: METHYLFOLATE 15 MG PO SCH (16:40)
[2017-12-02] MEDS: LITHIUM CARBONATE ER 300 MG TAB PO SCH (17:28)
[2017-12-02] MEDS: lamoTRIgine 100 MG TAB PO SCH (17:29)
[2017-12-02] MEDS: cloZAPine 100 MG TAB PO SCH (17:29)
[2017-12-02] MEDS: CHOLECALCIFEROL VIT D3 1,000 UNITS TAB PO SCH (17:29)
[2017-12-03] MEDS ORDERED: CITRIC ACID/SODIUM CITRATE 30 ML UDCUP PO PRN (07:00)
[2017-12-03] MEDS ORDERED: ONDANSETRON DISINTEGRATING 4 MG TAB PO PRN (07:00)
[2017-12-03] MEDS ORDERED: NS 1,000 ML IV PRN (07:00)
--- NOTE | 2017-12-03 14:48 | PDECTPN ---
ECT Progress Note Patient Problems: Problems Problem Status Onset Code Schizoaffective disorder Acute F25.9 Suicidal ideation Acute R45.851 Acute psychosis Acute F23 Forearm laceration involving tendon Acute S51.819A, S56.929A Marijuana abuse Acute F12.10 Self-inflicted injury Acute Z72.89 Date: 12/03/17 ECT provider: Gomez Lopez Anesthesia: Justin Eubanks Stimulus dose (%): 100 Pulse width: 0.5 ECT EMG (sec): 23 ECT EEG (sec): 35 ECT treatment type: bilateral QIDS-SR Total Score: 4 QIDS-SR Question #12 Score: 0 MMSE Total Score (Max = 21): 21 Next ECT date: 12/05/17 O/P psychiatrist follow up with : Jaron Perez O/P psychiatrist follow up: direct communication, phone, voice message Home medications: Medication Instructions Recorded lamoTRIgine [LamICTAL 100 MG (*)] 250 mg PO HS 10/07/16 Vraylar 4.5 mg PO HS 08/29/17 Cholecalciferol Vit D3 [Vitamin D3 1,000 units PO HS 11/21/17 (*)] Gabapentin [Neurontin 300 MG (*)] 300 mg PO TID 11/21/17 Ibuprofen [Motrin (*)] 400 mg PO DAILY PRN 11/21/17 L-Methylfolate 15m Cap 15 mg PO HS 11/21/17 LORazepam [Ativan (*)] 1 - 2 mg PO DAILY PRN 11/21/17 Washta Carbonate ER [Lithobid 300 1,500 mg PO HS 11/21/17 mg (*)] lamoTRIgine [LamICTAL] 25 mg PO HS 11/21/17 Medication review: completed Current treatment plan: acute phase, increased frequency cycle d/t exacerbation of symptoms Treatment plan frequency: 3 times per week ECT narrative: Reviewed inpatient chart. Inteviewed pt. He still c/o of paranioa and referential ideas, some AH and mood that is marked by some expansive, grandiose themes. No overt signs of veronica or depression however and QIDS was 4. Intense CAH to hurt self is abated, but pt somewhat guarded when answering this. No sig SE with Cloz at 100 mg. Will titrate to 150 mg and check levels soon thereafter. Will discuss dispo options with pt and parents tomorrow. Cont acute B ECT as well. WBC wnl. VS stable without tachycardia or hyperpyrexia
[2017-12-03] MEDS: GABAPENTIN 300 MG CAP PO SCH ×3 (15:20→20:58)
[2017-12-03] MEDS: LITHIUM CARBONATE ER 300 MG TAB PO SCH (20:58)
[2017-12-03] MEDS: CHOLECALCIFEROL VIT D3 1,000 UNITS TAB PO SCH (20:58)
[2017-12-03] MEDS: lamoTRIgine 100 MG TAB PO SCH (20:58)
[2017-12-03] MEDS: cloZAPine 100 MG TAB PO SCH (20:59)
[2017-12-03] MEDS: METHYLFOLATE 15 MG PO SCH (21:00)
[2017-12-04 08:04] LABS: PLATELET COUNT 214 10^3/uL (150-400)
[2017-12-04] MEDS: GABAPENTIN 300 MG CAP PO SCH (08:59)
--- NOTE | 2017-12-04 12:28 | SOAPPROG ---
SOAP Progress Note Assessment/Plan: Assessment: Schizoaffective d/o Bipolar Type Plan: Pt engaged in Art therapy and in milieu, which is improvement for him. However, he endorses on going AH and grandiose delusional beliefs. Still also occasional CAH to hurt self but he feels more empowered to NOT act on them. Tolerating CLoz with only mild sedation. WIll check levels am reflective of dose of 150 mg. Will cont acute B ect. Pt does not feel as if ECT increases AH; he indicated that that was an infrequent association he made. On MSE, he is pleasant and cooperative, but has marked response latency, ( almost as if responding to internal stimuli vs thought blocking). He is mildly disheveled. 12/04/17 12:15 12/04/17 12:28 Objective: Vital Signs Temp Pulse Resp BP Pulse Ox 36.6 C 115 H 16 116/63 96 12/04/17 06:00 12/04/17 06:00 12/04/17 06:00 12/04/17 06:00 12/04/17 06:00 Laboratory Results 12/04/17 06:30 12/03/17 12/04/17 12/05/17 05:59 05:59 05:59 Intake Total 1050 Balance 1050 ICD10 Worksheet Patient Problems: Problems Problem Status Onset Schizoaffective disorder Acute Suicidal ideation Acute Acute psychosis Acute Forearm laceration involving tendon Acute Marijuana abuse Acute Self-inflicted injury Acute
--- NOTE | 2017-12-04 14:26 | ASMTBHDC ---
Notes Note: Notes: Called [facility] ([phone]); transferred to . Left detailed with all necessary return contact information as well as poss. discharge date of this Sunday after ECT, etc. Date Signed: 12/04/2017 12:45 PM Electronically Signed By:Sonido Perez
[2017-12-04] MEDS: CHOLECALCIFEROL VIT D3 1,000 UNITS TAB PO SCH (20:42)
[2017-12-04] MEDS: cloZAPine 100 MG TAB PO SCH (20:42)
[2017-12-04] MEDS: METHYLFOLATE 15 MG PO SCH (21:51)
[2017-12-05] MEDS ORDERED: ONDANSETRON DISINTEGRATING 4 MG TAB PO PRN (10:14)
[2017-12-05] MEDS ORDERED: NS 1,000 ML IV PRN (10:14)
[2017-12-05] MEDS ORDERED: CITRIC ACID/SODIUM CITRATE 30 ML UDCUP PO PRN (10:14)
[2017-12-05] MEDS ORDERED: CITRIC ACID/SODIUM CITRATE 30 ML UDCUP ONE (10:21)
[2017-12-05] MEDS ORDERED: ONDANSETRON DISINTEGRATING 4 MG TAB ONE (10:21)
--- NOTE | 2017-12-05 12:33 | ASMTBHDC ---
Notes Note: Notes: CC called [facility], at ([phone] ([facility]) to request follow up appts; no answer left detailed VM with all necessary return contact information. Additionally, CC contact [facility] regarding possible discharge, etc. No answer left VM with all necessary return contact informaiton. Date Signed: 12/05/2017 12:32 PM Electronically Signed By:Sonido Perez
[2017-12-05] MEDS: GABAPENTIN 300 MG CAP PO SCH ×2 (16:07→21:07)
--- NOTE | 2017-12-05 18:05 | SOAPPROG ---
SOAP Progress Note Assessment/Plan: Assessment: Schizoaffective d/o Bipolar Type Plan: Pt engaged in Art therapy and in milieu, which is improvement for him. However, he endorses on going AH and grandiose delusional beliefs. Still also occasional CAH to hurt self but he feels more empowered to NOT act on them. Tolerating CLoz with only mild sedation. WIll check levels am reflective of dose of 150 mg. Will cont acute B ect. Pt does not feel as if ECT increases AH; he indicated that that was an infrequent association he made. On MSE, he is pleasant and cooperative, but has marked response latency, ( almost as if responding to internal stimuli vs thought blocking). He is mildly disheveled. 12/04/17 12:15 12/04/17 12:28 12/05/17 18:00 Pt skipped ECT today, initially due to report that he had eaten a muffin at 9am. Pt insisted he did but medical staff assistant had good evidence to contrary. On further eval, he appears to medical staff assistant to be more confused and disoriented. I inteviewed him later in day and confirmed a notable change with some disorientation, disorganized speech and poor STM that seemed more c/w an acute confusional state rather than symptomatic of his mood/psychotic disorder. He has significant potential contributants to this including 1) acute ECT 2) Li with level of 1.0 with use during acute ECT and 3) recent addition and titration of strongly anticholinergic Clozaril. Will hold doses of [place], and reduce Cloz back to 100 mg (checking level in AM ), May need to hold ECT sunday if confusion continues. He is not agitated nor expressing any drive to self harm, either from CAH or otherwise. Will keep him on precautions however, given change in MS. Further, he is afebrile, not rigid, with stable VS that are WNL 12/05/17 18:05 12/05/17 18:07 Objective: Vital Signs Temp Pulse Resp BP Pulse Ox 36.4 C 99 16 130/87 H 97 12/05/17 10:24 12/05/17 10:24 12/05/17 10:24 12/05/17 10:24 12/05/17 10:24 Laboratory Results 12/04/17 06:30 12/04/17 12/05/17 12/06/17 05:59 05:59 05:59 Intake Total 1050 Balance 1050 ICD10 Worksheet Patient Problems: Problems Problem Status Onset Schizoaffective disorder Acute Suicidal ideation Acute Acute psychosis Acute Forearm laceration involving tendon Acute Marijuana abuse Acute Self-inflicted injury Acute
[2017-12-05] MEDS: cloZAPine 100 MG TAB PO SCH (21:07)
[2017-12-05] MEDS: lamoTRIgine 100 MG TAB PO SCH (21:07)
[2017-12-05] MEDS: CHOLECALCIFEROL VIT D3 1,000 UNITS TAB PO SCH (21:07)
[2017-12-05] MEDS: METHYLFOLATE 15 MG PO SCH (21:08)
[2017-12-06] MEDS: GABAPENTIN 300 MG CAP PO SCH ×3 (08:33→20:09)
--- NOTE | 2017-12-06 14:01 | ASMTCMCOM ---
CM Note CM Note Notes: CC spoke to client's MOC this morning at length regarding client's "recent behavior changes, etc." CC was able to view and look over doctor's note which reflected such changes and the response towards them. CC reiterated with family that client appears brighter, more engaged; however, still understanding the need for continued safety as well as med issues, ECT, etc. MOC thanked this resume writer and will be in touch over the next couple of days. Date Signed: 12/06/2017 02:01 PM Electronically Signed By:Sonido Perez
--- NOTE | 2017-12-06 16:36 | SOAPPROG ---
SOAP Progress Note Assessment/Plan: Assessment: Schizoaffective d/o Bipolar Type Plan: Pt engaged in Art therapy and in milieu, which is improvement for him. However, he endorses on going AH and grandiose delusional beliefs. Still also occasional CAH to hurt self but he feels more empowered to NOT act on them. Tolerating CLoz with only mild sedation. WIll check levels am reflective of dose of 150 mg. Will cont acute B ect. Pt does not feel as if ECT increases AH; he indicated that that was an infrequent association he made. On MSE, he is pleasant and cooperative, but has marked response latency, ( almost as if responding to internal stimuli vs thought blocking). He is mildly disheveled. 12/04/17 12:15 12/04/17 12:28 12/05/17 18:00 Pt skipped ECT today, initially due to report that he had eaten a muffin at 9am. Pt insisted he did but junior staff accountant had good evidence to contrary. On further eval, he appears to junior staff accountant to be more confused and disoriented. I inteviewed him later in day and confirmed a notable change with some disorientation, disorganized speech and poor STM that seemed more c/w an acute confusional state rather than symptomatic of his mood/psychotic disorder. He has significant potential contributants to this including 1) acute ECT 2) Li with level of 1.0 with use during acute ECT and 3) recent addition and titration of strongly anticholinergic Clozaril. Will hold doses of [place], and reduce Cloz back to 100 mg (checking level in AM ), May need to hold ECT sunday if confusion continues. He is not agitated nor expressing any drive to self harm, either from CAH or otherwise. Will keep him on precautions however, given change in MS. Further, he is afebrile, not rigid, with stable VS that are WNL 12/05/17 18:05 12/05/17 18:07 12/06/17 16:30 Pt is a bit less confused and less disoriented today (A O X3) Yet still some increased thought blocking, word finding, increased response latency and inability to answer more open, less structured questions. Describes mood as labile ranging intraday from overly happy/euphoric to depressed and anxious. Does have paranoid delusions that are more prominent at hs (?c/w delirium, atop his baseline psychosis). Unable to answer Q re status of CAH becoming almost momentarily fixed in his gaze downward and ultimately beginning, many seconds later, to respond in a non sensical/disorganized fashion. Will cont to hold Li one more night, then maybe restart at lower dose. Will hold ECT tomorrow. Cloz back down to 100mg with levels pnd. Perfects storm of acute ECT--with its cognitive SEs and increased permeability of BBB-coupled with delerogenic meds with greater HAND ETCHER penetration (Li and Cloz), contributed to delirium. No discharge tomorrow given this clinical event. Objective: Vital Signs Temp Pulse Resp BP Pulse Ox 36.4 C 99 16 130/87 H 97 12/05/17 10:24 12/05/17 10:24 12/05/17 10:24 12/05/17 10:24 12/05/17 10:24 Laboratory Results 12/04/17 06:30 ICD10 Worksheet Patient Problems: Problems Problem Status Onset Schizoaffective disorder Acute Suicidal ideation Acute Acute psychosis Acute Forearm laceration involving tendon Acute Marijuana abuse Acute Self-inflicted injury Acute
[2017-12-06] MEDS ORDERED: lamoTRIgine 100 MG TAB PO ONE (20:00)
[2017-12-06] MEDS: CHOLECALCIFEROL VIT D3 1,000 UNITS TAB PO SCH (20:09)
[2017-12-06] MEDS: cloZAPine 100 MG TAB PO SCH (20:10)
[2017-12-06] MEDS: METHYLFOLATE 15 MG PO SCH (20:12)
[2017-12-06] MEDS ORDERED: lamoTRIgine 100 MG TAB PO SCH ×2 (21:00)
[2017-12-07] MEDS ORDERED: CITRIC ACID/SODIUM CITRATE 30 ML UDCUP PO PRN (04:00)
[2017-12-07] MEDS ORDERED: ONDANSETRON DISINTEGRATING 4 MG TAB PO PRN (04:00)
[2017-12-07] MEDS ORDERED: NS 1,000 ML IV PRN (04:00)
[2017-12-07] MEDS: GABAPENTIN 300 MG CAP PO SCH ×3 (09:16→20:25)
--- NOTE | 2017-12-07 11:53 | ASMTCMCOM ---
CM Note CM Note Notes: CC spoke to client briefly during check-in. Clt appears to be doing "better," than previous days. CC still waiting to hear back from [facility] regarding any follow up care. Also, per provider client will be on the unit through the weekend with any update on Sunday as well as to see if any further ECT needs to be done on Sunday, etc. Date Signed: 12/07/2017 11:52 AM Electronically Signed By:Sonido Perez
--- NOTE | 2017-12-07 14:23 | SOAPPROG ---
SOAP Progress Note Assessment/Plan: Assessment: Schizoaffective d/o Bipolar Type Plan: Pt engaged in Art therapy and in milieu, which is improvement for him. However, he endorses on going AH and grandiose delusional beliefs. Still also occasional CAH to hurt self but he feels more empowered to NOT act on them. Tolerating CLoz with only mild sedation. WIll check levels am reflective of dose of 150 mg. Will cont acute B ect. Pt does not feel as if ECT increases AH; he indicated that that was an infrequent association he made. On MSE, he is pleasant and cooperative, but has marked response latency, ( almost as if responding to internal stimuli vs thought blocking). He is mildly disheveled. 12/04/17 12:15 12/04/17 12:28 12/05/17 18:00 Pt skipped ECT today, initially due to report that he had eaten a muffin at 9am. Pt insisted he did but field staff had good evidence to contrary. On further eval, he appears to field staff to be more confused and disoriented. I inteviewed him later in day and confirmed a notable change with some disorientation, disorganized speech and poor STM that seemed more c/w an acute confusional state rather than symptomatic of his mood/psychotic disorder. He has significant potential contributants to this including 1) acute ECT 2) Li with level of 1.0 with use during acute ECT and 3) recent addition and titration of strongly anticholinergic Clozaril. Will hold doses of [place], and reduce Cloz back to 100 mg (checking level in AM ), May need to hold ECT sunday if confusion continues. He is not agitated nor expressing any drive to self harm, either from CAH or otherwise. Will keep him on precautions however, given change in MS. Further, he is afebrile, not rigid, with stable VS that are WNL 12/05/17 18:05 12/05/17 18:07 12/06/17 16:30 Pt is a bit less confused and less disoriented today (A O X3) Yet still some increased thought blocking, word finding, increased response latency and inability to answer more open, less structured questions. Describes mood as labile ranging intraday from overly happy/euphoric to depressed and anxious. Does have paranoid delusions that are more prominent at hs (?c/w delirium, atop his baseline psychosis). Unable to answer Q re status of CAH becoming almost momentarily fixed in his gaze downward and ultimately beginning, many seconds later, to respond in a non sensical/disorganized fashion. Will cont to hold Li one more night, then maybe restart at lower dose. Will hold ECT tomorrow. Cloz back down to 100mg with levels pnd. Perfects storm of acute ECT--with its cognitive SEs and increased permeability of BBB-coupled with delerogenic meds with greater ELECTRICAL INSPECTOR penetration (Li and Cloz), contributed to delirium. No discharge tomorrow given this clinical event. 12/07/17 14:21 Met with patient and parents today. He is much improved in terms of delirium as of today. Discussed virtue of continueing acute ECT along with Cloz into next week but that we will hold Li for duration of acute tx. Pt still expressing some concerns for own safety if out of the [place]. Pt feeling "Up " during visit and some inappropriate laughter was noted. He was not otherwise engaged in visit, and most of the discussion was btw parents and literary writer Objective: Vital Signs Temp Pulse Resp BP Pulse Ox 36.6 C 89 20 116/72 98 12/07/17 06:00 12/07/17 06:00 12/07/17 06:00 12/07/17 06:00 12/07/17 06:00 Laboratory Results 12/04/17 06:30 ICD10 Worksheet Patient Problems: Problems Problem Status Onset Schizoaffective disorder Acute Suicidal ideation Acute Acute psychosis Acute Forearm laceration involving tendon Acute Marijuana abuse Acute Self-inflicted injury Acute
[2017-12-07] MEDS: CHOLECALCIFEROL VIT D3 1,000 UNITS TAB PO SCH (20:24)
[2017-12-07] MEDS: METHYLFOLATE 15 MG PO SCH (20:25)
[2017-12-07] MEDS: cloZAPine 100 MG TAB PO SCH (20:25)
[2017-12-07] MEDS: LITHIUM CARBONATE ER 300 MG TAB PO SCH (20:26)
[2017-12-07] MEDS: lamoTRIgine 100 MG TAB PO SCH (20:26)
[2017-12-08] MEDS: GABAPENTIN 300 MG CAP PO SCH ×3 (08:58→21:21)
--- NOTE | 2017-12-08 19:02 | SOAPPROG ---
SOAP Progress Note Assessment/Plan: Assessment: Per Dr. Lopez's note: 12/06/17 16:30 Pt is a bit less confused and less disoriented today (A O X3) Yet still some increased thought blocking, word finding, increased response latency and inability to answer more open, less structured questions. Describes mood as labile ranging intraday from overly happy/euphoric to depressed and anxious. Does have paranoid delusions that are more prominent at hs (?c/w delirium, atop his baseline psychosis). Unable to answer Q re status of CAH becoming almost momentarily fixed in his gaze downward and ultimately beginning, many seconds later, to respond in a non sensical/disorganized fashion. Will cont to hold Li one more night, then maybe restart at lower dose. Will hold ECT tomorrow. Cloz back down to 100mg with levels pnd. Perfects storm of acute ECT--with its cognitive SEs and increased permeability of BBB-coupled with delerogenic meds with greater MOTOR HOTEL MANAGER penetration (Li and Cloz), contributed to delirium. No discharge tomorrow given this clinical event. 12/07/17 14:21 Met with patient and parents today. He is much improved in terms of delirium as of today. Discussed virtue of continueing acute ECT along with Cloz into next week but that we will hold Li for duration of acute tx. Pt still expressing some concerns for own safety if out of the [place]. Pt feeling "Up " during visit and some inappropriate laughter was noted. He was not otherwise engaged in visit, and most of the discussion was btw parents and casualty underwriter. Plan: 12/08/17 18:58 1. This MD did not see patient this week, but staff report he is much more oriented and organized than on Sun and . He is AOx4, more fluent in speech, though still some response latency. He appears more engaged in conversation and has appropriate interactions with family during their visit. 2. Reports voices are "quieter" today, less obviously bothered by paranoid delusions and fears. 3. Continue with Clozaril and other med changes (holding lithium) per Dr. Lopez 's recommendations 4. Waiting for Dr. Lopez to schedule next ECT if needed Subjective: Met with patient, reviewed chart and d/w staff. Patient presents much more linear, organized and coherent than was reported earlier this week. He acknowledges feeling much better. He appears less confused, making more sense and able to engage in conversation with similar fluency to last weekend when MD saw patient. He still has response latency and occasional moments of distraction. MD observed patient interact with his POC and BOC during their visit on unit. His BOC gave patient a book. While BOC was explaining what book was about, patient appeared engaged, made appropriate eye contact, smiled and exchanged banter with BOC in cheerful way. This was more affect than MD had previously observed from patient. Objective: Vital Signs Temp Pulse Resp BP Pulse Ox 36.7 C 86 20 92/54 L 93 12/08/17 06:00 12/08/17 06:00 12/08/17 06:00 12/08/17 06:00 12/08/17 06:00 Laboratory Results 12/04/17 06:30 MSE: Affect: Brighter and more cheerful, especially when talking to BOC Mood: "OK" TP: More coherent and linear TC: Denies any SI/HI, voices are "quieter" Insight/Judgment: Improving - Time Spent With Patient Time Spent With Patient: 20" - Pending Discharge Pending Discharge Within 24 Hours: No Pending Discharge Within 48 Hours: No ICD10 Worksheet Patient Problems: Problems Problem Status Onset Schizoaffective disorder Acute Suicidal ideation Acute Acute psychosis Acute Forearm laceration involving tendon Acute Marijuana abuse Acute Self-inflicted injury Acute
[2017-12-08] MEDS: CHOLECALCIFEROL VIT D3 1,000 UNITS TAB PO SCH (21:20)
[2017-12-08] MEDS: cloZAPine 100 MG TAB PO SCH (21:20)
[2017-12-08] MEDS: METHYLFOLATE 15 MG PO SCH (21:21)
[2017-12-08] MEDS: lamoTRIgine 100 MG TAB PO SCH (21:21)
[2017-12-08] MEDS: LITHIUM CARBONATE ER 300 MG TAB PO SCH (21:22)
[2017-12-09] MEDS: GABAPENTIN 300 MG CAP PO SCH (09:13)
--- NOTE | 2017-12-09 15:00 | ASMTCMCOM ---
CM Note CM Note Notes: Pt. reports feeling "okay". Pt. stated he slept "really well". Pt. stated he spoke with Dr. Lopez about taking lithium while in the hospital. Pt. reports not feeling disoriented and is oriented x4. Pt. reports Dr. Lopez will visit him today to decide about ECT on Sunday. Pt. reports attending groups and liking art group. Pt. stated "hard to draw a line between auditory hallucinations and thoughts" Pt. stated his AH or thoughts are negative currently. Pt. reported some paranoia last night when being checked on and not knowing who was at his door. Pt. denied SI and HI. Pt. presents as alert, calm, at times delayed in his responses, good eye contact and a mostly pleasant demeanor. Staff report pt. sleeping 9 hours and being medication compliant. Staff report an increase in pt's affect. Date Signed: 12/09/2017 02:59 PM Electronically Signed By:Indigo Donald
--- NOTE | 2017-12-09 16:31 | SOAPPROG ---
SOAP Progress Note Assessment/Plan: Assessment: Per Dr. Lopez's note: 12/06/17 16:30 Pt is a bit less confused and less disoriented today (A O X3) Yet still some increased thought blocking, word finding, increased response latency and inability to answer more open, less structured questions. Describes mood as labile ranging intraday from overly happy/euphoric to depressed and anxious. Does have paranoid delusions that are more prominent at hs (?c/w delirium, atop his baseline psychosis). Unable to answer Q re status of CAH becoming almost momentarily fixed in his gaze downward and ultimately beginning, many seconds later, to respond in a non sensical/disorganized fashion. Will cont to hold Li one more night, then maybe restart at lower dose. Will hold ECT tomorrow. Cloz back down to 100mg with levels pnd. Perfects storm of acute ECT--with its cognitive SEs and increased permeability of BBB-coupled with delerogenic meds with greater BLOOD AND PLASMA LABORATORY ASSISTANT penetration (Li and Cloz), contributed to delirium. No discharge tomorrow given this clinical event. 12/07/17 14:21 Met with patient and parents today. He is much improved in terms of delirium as of today. Discussed virtue of continueing acute ECT along with Cloz into next week but that we will hold Li for duration of acute tx. Pt still expressing some concerns for own safety if [place]. Pt feeling "Up " during visit and some inappropriate laughter was noted. He was not otherwise engaged in visit, and most of the discussion was btw parents and bond underwriter. Plan: 12/08/17 18:58 1. This MD did not see patient this week, but staff report he is much more oriented and organized than on Sun and . He is AOx4, more fluent in speech, though still some response latency. He appears more engaged in conversation and has appropriate interactions with family during their visit. 2. Reports voices are "quieter" today, less obviously bothered by paranoid delusions and fears. 3. Continue with Clozaril and other med changes (holding lithium) per Dr. Lopez 's recommendations 4. Waiting for Dr. Lopez to schedule next ECT if needed 12/09/17 16:23 1. Patient AOx4, linear, goal-directed, clear sensorium. 2. Much brighter affect and more animated. 3. Patient eating well, slept 9 hrs. Still c/o fear of people "walking into my room," but getting better night's sleep. 4. "Voices" are less troublesome. 5. Awaiting decision about further ECT in consultation with Dr. Lopez and family. Subjective: Met with patient, reviewed chart and d/w staff. Patient continues to demonstrate brighter affect and more range of emotion than during previous interactions between patient and MD. As MD was leaving unit last night, patient was talking animatedly on phone. MD asked how patient was doing, he said, "Really well, but I think I missed evening snacks." He made a joke out of it, but when he was told by staff that they had not distributed snacks yet, patient' s face lit up and he smiled a big smile of gratitude. Patient ate 100% of breakfast this AM and went to groups. He told CC today that sometimes it's " hard to draw a line between my thoughts and the voices." This is the first time MD has heard patient express this insight into the nature of some of his internal stimuli. Acknowledging this may help patient tolerate some level of internal distress without becoming acutely paranoid or losing touch with reality altogether. MD sees this as a hopeful sign for patient's progress. Patient denies any SI/HI. Objective: Vital Signs Temp Pulse Resp BP Pulse Ox 36.6 C 90 20 95/54 L 96 12/09/17 06:00 12/09/17 06:00 12/09/17 06:00 12/09/17 06:00 12/09/17 06:00 Laboratory Results 12/04/17 06:30 MSE: Affect: Euthymic, brighter with more range of emotion Mood: "Good" TP: Linear TC: Denies SI/HI, voices are "quieter" Insight/Judgment: Fair - Time Spent With Patient Time Spent With Patient: 20" - Pending Discharge Pending Discharge Within 24 Hours: No Pending Discharge Within 48 Hours: No ICD10 Worksheet Patient Problems: Problems Problem Status Onset Schizoaffective disorder Acute Suicidal ideation Acute Acute psychosis Acute Forearm laceration involving tendon Acute Marijuana abuse Acute Self-inflicted injury Acute
[2017-12-09] MEDS: cloZAPine 100 MG TAB PO SCH (20:57)
[2017-12-09] MEDS: CHOLECALCIFEROL VIT D3 1,000 UNITS TAB PO SCH (20:57)
[2017-12-09] MEDS: METHYLFOLATE 15 MG PO SCH (21:51)
[2017-12-10] MEDS ORDERED: CITRIC ACID/SODIUM CITRATE 30 ML UDCUP PO PRN (04:00)
[2017-12-10] MEDS ORDERED: NS 1,000 ML IV PRN (04:00)
[2017-12-10] MEDS ORDERED: ONDANSETRON DISINTEGRATING 4 MG TAB PO PRN ×2 (04:00→10:13)
[2017-12-10] MEDS: GABAPENTIN 300 MG CAP PO SCH ×3 (08:27→21:06)
[2017-12-10] MEDS ORDERED: NALOXONE HCL 0.4 MG/ML INJ IVP PRN (10:13)
[2017-12-10] MEDS ORDERED: HYDROCODONE/APAP 5/325 TAB PO PRN (10:13)
[2017-12-10] MEDS ORDERED: PROMETHAZINE HCL 25 MG TAB PO PRN (10:13)
--- NOTE | 2017-12-10 10:25 | PDECTPN ---
ECT Progress Note Patient Problems: Problems Problem Status Onset Code Schizoaffective disorder Acute F25.9 Suicidal ideation Acute R45.851 Acute psychosis Acute F23 Forearm laceration involving tendon Acute S51.819A, S56.929A Marijuana abuse Acute F12.10 Self-inflicted injury Acute Z72.89 Date: 12/10/17 ECT provider: Gomez Lopez Anesthesia: Justin Eubanks Stimulus dose (%): 100 Pulse width: 0.5 ECT EMG (sec): 27 ECT EEG (sec): 36 ECT treatment type: bilateral QIDS-SR Total Score: 3 QIDS-SR Question #12 Score: 0 MMSE Total Score (Max = 21): 21 Next ECT date: 12/12/17 Next ECT time: 08:45 O/P psychiatrist follow up with DrReva: Jaron Perez O/P psychiatrist follow up: phone, voice message Home medications: Medication Instructions Recorded lamoTRIgine [LamICTAL 100 MG (*)] 250 mg PO HS 10/07/16 Vraylar 4.5 mg PO HS 08/29/17 Cholecalciferol Vit D3 [Vitamin D3 1,000 units PO HS 11/21/17 (*)] Gabapentin [Neurontin 300 MG (*)] 300 mg PO TID 11/21/17 Ibuprofen [Motrin (*)] 400 mg PO DAILY PRN 11/21/17 L-Methylfolate 15m Cap 15 mg PO HS 11/21/17 LORazepam [Ativan (*)] 1 - 2 mg PO DAILY PRN 11/21/17 [place] Carbonate ER [Lithobid 300 1,500 mg PO HS 11/21/17 mg (*)] lamoTRIgine [LamICTAL] 25 mg PO HS 11/21/17 Current treatment plan: acute phase Treatment plan frequency: 3 times per week ECT narrative: Reviewed inpatient chart. Inteviewed pt. He still c/o of paranioa and referential ideas, some AH and mood that is marked by some expansive, grandiose themes. No overt signs of veronica or depression however and QIDS was 4. Intense CAH to hurt self is abated, but pt somewhat guarded when answering this. No sig SE with Cloz at 100 mg. Will titrate to 150 mg and check levels soon thereafter. Will discuss dispo options with pt and parents tomorrow. Cont acute B ECT as well. WBC wnl. VS stable without tachycardia or hyperpyrexia 12/10/17 reviewed notes from weekend. Delirium appears fully resolved. Pt scores MMSE 21/21, and his A and O x3. Has, as expected, unclear recollection of events of last week. Still with some mood lability and AH, and paranoia, most prominent at night. Will change cloz to dinner time to address this. Will re attempt ECT, in the absence of Li and will lower dose CLoz, with hopes of getting benefit without confusional state. WIll also hold any AED med the night before each tx (gabapentin and LMT). Indeed, will lower LMT for duration of acute ECT to ensure maximal seizure activity. After acute ECT is completed, will re-increase LMT, restart Li at prior dose and encourage further titration of Cloz given its low serum level
[2017-12-10] MEDS: CHOLECALCIFEROL VIT D3 1,000 UNITS TAB PO SCH (21:05)
[2017-12-10] MEDS: cloZAPine 100 MG TAB PO SCH (21:05)
[2017-12-10] MEDS: lamoTRIgine 100 MG TAB PO SCH (21:08)
[2017-12-10] MEDS: METHYLFOLATE 15 MG PO SCH (21:32)
[2017-12-11 08:09] LABS: PLATELET COUNT 235 10^3/uL (150-400)
[2017-12-11] MEDS: GABAPENTIN 300 MG CAP PO SCH (09:26)
--- NOTE | 2017-12-11 13:42 | SOAPPROG ---
SOAP Progress Note Assessment/Plan: Assessment: Schizoaffective d/o Bipolar Type Plan: Pt engaged in Art therapy and in milieu, which is improvement for him. However, he endorses on going AH and grandiose delusional beliefs. Still also occasional CAH to hurt self but he feels more empowered to NOT act on them. Tolerating CLoz with only mild sedation. WIll check levels am reflective of dose of 150 mg. Will cont acute B ect. Pt does not feel as if ECT increases AH; he indicated that that was an infrequent association he made. On MSE, he is pleasant and cooperative, but has marked response latency, ( almost as if responding to internal stimuli vs thought blocking). He is mildly disheveled. 12/04/17 12:15 12/04/17 12:28 12/05/17 18:00 Pt skipped ECT today, initially due to report that he had eaten a muffin at 9am. Pt insisted he did but residential treatment staff had good evidence to contrary. On further eval, he appears to residential treatment staff to be more confused and disoriented. I inteviewed him later in day and confirmed a notable change with some disorientation, disorganized speech and poor STM that seemed more c/w an acute confusional state rather than symptomatic of his mood/psychotic disorder. He has significant potential contributants to this including 1) acute ECT 2) Li with level of 1.0 with use during acute ECT and 3) recent addition and titration of strongly anticholinergic Clozaril. Will hold doses of [place], and reduce Cloz back to 100 mg (checking level in AM ), May need to hold ECT sunday if confusion continues. He is not agitated nor expressing any drive to self harm, either from CAH or otherwise. Will keep him on precautions however, given change in MS. Further, he is afebrile, not rigid, with stable VS that are WNL 12/05/17 18:05 12/05/17 18:07 12/06/17 16:30 Pt is a bit less confused and less disoriented today (A O X3) Yet still some increased thought blocking, word finding, increased response latency and inability to answer more open, less structured questions. Describes mood as labile ranging intraday from overly happy/euphoric to depressed and anxious. Does have paranoid delusions that are more prominent at hs (?c/w delirium, atop his baseline psychosis). Unable to answer Q re status of CAH becoming almost momentarily fixed in his gaze downward and ultimately beginning, many seconds later, to respond in a non sensical/disorganized fashion. Will cont to hold Li one more night, then maybe restart at lower dose. Will hold ECT tomorrow. Cloz back down to 100mg with levels pnd. Perfects storm of acute ECT--with its cognitive SEs and increased permeability of BBB-coupled with delerogenic meds with greater ELECTRIC VEHICLE ELECTRICIAN penetration (Li and Cloz), contributed to delirium. No discharge tomorrow given this clinical event. 12/07/17 14:21 Met with patient and parents today. He is much improved in terms of delirium as of today. Discussed virtue of continueing acute ECT along with Cloz into next week but that we will hold Li for duration of acute tx. Pt still expressing some concerns for own safety if [place]. Pt feeling "Up " during visit and some inappropriate laughter was noted. He was not otherwise engaged in visit, and most of the discussion was btw parents and feature writer 12/11/17 13:35 Pt interviewed today, one day post last ECT. He is A O times 3. Still with increased response latency, especially when asked open ended question pertaining to his mood or psychotic symptoms. Less so for emotionally neutral topics or more structured questions. Presently, feels that CAH are in the background by states that "the plot goes that they [the CAH] will come back in the real world" describing his concern that he is still quite fragile and susceptible to increased psychotic symptoms under the stressors of beiing out of hospital. Moods is likewise presently not overtly manic or depressed. He has no ego-syntonic desire to kill himself at present. In retrospecting over last 24 hours--limited in his ability to do so by virtue of STM impact of ECT/recent delirium--he feels that he had had some mood lability with arguably manic bouts involving graniosity and expansive mood. Plan is to do at least two more acute ECTs inpt, while continueing to hold Li and keep Cloz at 100. Post acute ECT, Li to be restarted, and Cloz to be titrated higher given low level. Objective: Vital Signs Temp Pulse Resp BP Pulse Ox 36.8 C 95 14 101/61 95 12/11/17 06:00 12/11/17 06:00 12/11/17 06:00 12/11/17 06:00 12/11/17 06:00 Laboratory Results 12/11/17 07:00 12/10/17 12/11/17 12/12/17 05:59 05:59 05:59 Intake Total 1100 Balance 1100 Laboratory Tests 08/08/17 08/11/17 08/11/17 06:15 06:20 06:20 WBC Absolute Neuts (auto) Lamotrigine 4.7 Clozapine Clozapine &Norclozapine Norclozapine [place] 0.7 U Marijuana (THC) Screen NON-NEGATIVE H 12/04/17 12/04/17 12/06/17 06:30 06:30 06:00 WBC Absolute Neuts (auto) Lamotrigine 7.9 Clozapine Pending Clozapine &Norclozapine 187 Norclozapine 49 [place] 1.0 U Marijuana (THC) Screen 12/11/17 07:00 WBC 6.86 Absolute Neuts (auto) 4.60 Lamotrigine Clozapine Clozapine &Norclozapine Norclozapine [place] U Marijuana (THC) Screen ICD10 Worksheet Patient Problems: Problems Problem Status Onset Schizoaffective disorder Acute Suicidal ideation Acute Acute psychosis Acute Forearm laceration involving tendon Acute Marijuana abuse Acute Self-inflicted injury Acute
[2017-12-11] MEDS: METHYLFOLATE 15 MG PO SCH (19:31)
[2017-12-11] MEDS: cloZAPine 100 MG TAB PO SCH (19:31)
[2017-12-11] MEDS: CHOLECALCIFEROL VIT D3 1,000 UNITS TAB PO SCH (19:31)
[2017-12-12] MEDS ORDERED: ONDANSETRON DISINTEGRATING 4 MG TAB PO PRN (04:00)
[2017-12-12] MEDS ORDERED: NS 1,000 ML IV PRN (04:00)
[2017-12-12] MEDS ORDERED: CITRIC ACID/SODIUM CITRATE 30 ML UDCUP PO PRN (04:00)
[2017-12-12] MEDS ORDERED: CITRIC ACID/SODIUM CITRATE 30 ML UDCUP ONE (08:37)
[2017-12-12] MEDS ORDERED: ONDANSETRON DISINTEGRATING 4 MG TAB ONE (08:37)
[2017-12-12] MEDS ORDERED: NALOXONE HCL 0.4 MG/ML INJ IVP PRN (09:32)
[2017-12-12] MEDS ORDERED: HYDROCODONE/APAP 5/325 TAB PO PRN (09:32)
[2017-12-12] MEDS ORDERED: PROMETHAZINE HCL 25 MG TAB PO PRN (09:32)
--- NOTE | 2017-12-12 09:39 | PDECTPN ---
ECT Progress Note Patient Problems: Problems Problem Status Onset Code Schizoaffective disorder Acute F25.9 Suicidal ideation Acute R45.851 Acute psychosis Acute F23 Forearm laceration involving tendon Acute S51.819A, S56.929A Marijuana abuse Acute F12.10 Self-inflicted injury Acute Z72.89 Date: 12/12/17 Treatment#: 7 ECT provider: Gomez Lopez Anesthesia: Justin Eubanks Stimulus dose (%): 100 Pulse width: 0.5 ECT EMG (sec): 17 ECT EEG (sec): 51 ECT treatment type: bilateral QIDS-SR Total Score: 3 QIDS-SR Question #12 Score: 0 MMSE Total Score (Max = 21): 21 Next ECT date: 12/14/17 Next ECT time: 12:00 O/P psychiatrist follow up with DrReva: Jaron Perez O/P psychiatrist follow up: phone, voice message Home medications: Medication Instructions Recorded lamoTRIgine [LamICTAL 100 MG (*)] 250 mg PO HS 10/07/16 Vraylar 4.5 mg PO HS 08/29/17 Cholecalciferol Vit D3 [Vitamin D3 1,000 units PO HS 11/21/17 (*)] Gabapentin [Neurontin 300 MG (*)] 300 mg PO TID 11/21/17 Ibuprofen [Motrin (*)] 400 mg PO DAILY PRN 11/21/17 L-Methylfolate 15m Cap 15 mg PO HS 11/21/17 LORazepam [Ativan (*)] 1 - 2 mg PO DAILY PRN 11/21/17 [place] Carbonate ER [Lithobid 300 1,500 mg PO HS 11/21/17 mg (*)] lamoTRIgine [LamICTAL] 25 mg PO HS 11/21/17 Current treatment plan: acute phase Treatment plan frequency: 3 times per week ECT narrative: Reviewed inpatient chart. Inteviewed pt. He still c/o of paranioa and referential ideas, some AH and mood that is marked by some expansive, grandiose themes. No overt signs of veronica or depression however and QIDS was 4. Intense CAH to hurt self is abated, but pt somewhat guarded when answering this. No sig SE with Cloz at 100 mg. Will titrate to 150 mg and check levels soon thereafter. Will discuss dispo options with pt and parents tomorrow. Cont acute B ECT as well. WBC wnl. VS stable without tachycardia or hyperpyrexia 12/10/17 reviewed notes from weekend. Delirium appears fully resolved. Pt scores MMSE 21/21, and his A and O x3. Has, as expected, unclear recollection of events of last week. Still with some mood lability and AH, and paranoia, most prominent at night. Will change cloz to dinner time to address this. Will re attempt ECT, in the absence of Li and will lower dose CLoz, with hopes of getting benefit without confusional state. WIll also hold any AED med the night before each tx (gabapentin and LMT). Indeed, will lower LMT for duration of acute ECT to ensure maximal seizure activity. After acute ECT is completed, will re-increase LMT, restart Li at prior dose and encourage further titration of Cloz given its low serum level 12/12 Pt remains impov, PMR, increased response latency.Still endorses hs paranoia and AH, yet not as intense or negative as it had been. Will proceed with acute ECT through Sunday, then consider re-start Li and increase Cloz with mECT done at a freq (ie, weekly) rate. Or, it may be necessary to proceed into next week with further acute ECT and hold off on med changes until completed.
[2017-12-12] MEDS: GABAPENTIN 300 MG CAP PO SCH ×2 (15:44→21:05)
[2017-12-12] MEDS: cloZAPine 100 MG TAB PO SCH (18:10)
[2017-12-12] MEDS: lamoTRIgine 100 MG TAB PO SCH (21:05)
[2017-12-12] MEDS: CHOLECALCIFEROL VIT D3 1,000 UNITS TAB PO SCH (21:05)
[2017-12-12] MEDS: METHYLFOLATE 15 MG PO SCH (21:10)
[2017-12-13] MEDS: GABAPENTIN 300 MG CAP PO SCH (09:16)
[2017-12-13] MEDS ORDERED: DIVALPROEX ER 250 MG TAB PO ONE (15:54)
--- NOTE | 2017-12-13 16:03 | SOAPPROG ---
SOAP Progress Note Assessment/Plan: Assessment: Schizoaffective d/o Bipolar Type Plan: Pt engaged in Art therapy and in milieu, which is improvement for him. However, he endorses on going AH and grandiose delusional beliefs. Still also occasional CAH to hurt self but he feels more empowered to NOT act on them. Tolerating CLoz with only mild sedation. WIll check levels am reflective of dose of 150 mg. Will cont acute B ect. Pt does not feel as if ECT increases AH; he indicated that that was an infrequent association he made. On MSE, he is pleasant and cooperative, but has marked response latency, ( almost as if responding to internal stimuli vs thought blocking). He is mildly disheveled. 12/04/17 12:15 12/04/17 12:28 12/05/17 18:00 Pt skipped ECT today, initially due to report that he had eaten a muffin at 9am. Pt insisted he did but balance staff staker had good evidence to contrary. On further eval, he appears to balance staff staker to be more confused and disoriented. I inteviewed him later in day and confirmed a notable change with some disorientation, disorganized speech and poor STM that seemed more c/w an acute confusional state rather than symptomatic of his mood/psychotic disorder. He has significant potential contributants to this including 1) acute ECT 2) Li with level of 1.0 with use during acute ECT and 3) recent addition and titration of strongly anticholinergic Clozaril. Will hold doses of [place], and reduce Cloz back to 100 mg (checking level in AM ), May need to hold ECT sunday if confusion continues. He is not agitated nor expressing any drive to self harm, either from CAH or otherwise. Will keep him on precautions however, given change in [place]. Further, he is afebrile, not rigid, with stable VS that are WNL 12/05/17 18:05 12/05/17 18:07 12/06/17 16:30 Pt is a bit less confused and less disoriented today (A O X3) Yet still some increased thought blocking, word finding, increased response latency and inability to answer more open, less structured questions. Describes mood as labile ranging intraday from overly happy/euphoric to depressed and anxious. Does have paranoid delusions that are more prominent at hs (?c/w delirium, atop his baseline psychosis). Unable to answer Q re status of CAH becoming almost momentarily fixed in his gaze downward and ultimately beginning, many seconds later, to respond in a non sensical/disorganized fashion. Will cont to hold Li one more night, then maybe restart at lower dose. Will hold ECT tomorrow. Cloz back down to 100mg with levels pnd. Perfects storm of acute ECT--with its cognitive SEs and increased permeability of BBB-coupled with delerogenic meds with greater AFTERNOON BABYSITTER penetration (Li and Cloz), contributed to delirium. No discharge tomorrow given this clinical event. 12/07/17 14:21 Met with patient and parents today. He is much improved in terms of delirium as of today. Discussed virtue of continueing acute ECT along with Cloz into next week but that we will hold Li for duration of acute tx. Pt still expressing some concerns for own safety if [place]. Pt feeling "Up " during visit and some inappropriate laughter was noted. He was not otherwise engaged in visit, and most of the discussion was btw parents and group underwriter 12/11/17 13:35 Pt interviewed today, one day post last ECT. He is A O times 3. Still with increased response latency, especially when asked open ended question pertaining to his mood or psychotic symptoms. Less so for emotionally neutral topics or more structured questions. Presently, feels that CAH are in the background by states that "the plot goes that they [the CAH] will come back in the real world" describing his concern that he is still quite fragile and susceptible to increased psychotic symptoms under the stressors of beiing out of hospital. Moods is likewise presently not overtly manic or depressed. He has no ego-syntonic desire to kill himself at present. In retrospecting over last 24 hours--limited in his ability to do so by virtue of STM impact of ECT/recent delirium--he feels that he had had some mood lability with arguably manic bouts involving graniosity and expansive mood. Plan is to do at least two more acute ECTs inpt, while continueing to hold Li and keep Cloz at 100. Post acute ECT, Li to be restarted, and Cloz to be titrated higher given low level. 12/13/17 15:58 Pt apparently has incorporated me into a paranoid delusional system. His "observing ego" is aware that there is no rational basis for idea but he feels it nonetheless. I queried whether it will be an impedement in his trusting my suggestions as his psychiatrist. He indicated not. I shared lengthy discussion I had had with Dr Perez about re-starting DEPakote. He agrees. Will need to decrease home dosage of LMT. Will start with low dose so as not to interfere markedly with ECT efficacy. He is unkempt, odd, intermittant in eye contact, with increased response latency. Mood remains labile, per pt. +AH yet denies intense CAH with coaxing of him to self harm while on unit, but still with fear of that happening if not here. Objective: Vital Signs Temp Pulse Resp BP Pulse Ox 36.7 C 71 13 108/62 95 12/13/17 06:39 12/13/17 06:39 12/13/17 06:39 12/13/17 06:39 12/13/17 06:39 Laboratory Results 12/11/17 07:00 12/12/17 12/13/17 12/14/17 05:59 05:59 05:59 Intake Total 550 Balance 550 ICD10 Worksheet Patient Problems: Problems Problem Status Onset Acute psychosis Acute Forearm laceration involving tendon Acute Self-inflicted injury Acute Marijuana abuse Acute Schizoaffective disorder Acute Suicidal ideation Acute
[2017-12-13] MEDS: cloZAPine 100 MG TAB PO SCH (17:18)
[2017-12-13] MEDS: DIVALPROEX ER 250 MG TAB PO SCH ×3 (17:18→20:26)
[2017-12-13] MEDS: METHYLFOLATE 15 MG PO SCH (20:27)
[2017-12-13] MEDS: CHOLECALCIFEROL VIT D3 1,000 UNITS TAB PO SCH (21:19)
[2017-12-14] MEDS ORDERED: NS 1,000 ML IV PRN (04:00)
[2017-12-14] MEDS ORDERED: ONDANSETRON DISINTEGRATING 4 MG TAB PO PRN (04:00)
[2017-12-14] MEDS ORDERED: CITRIC ACID/SODIUM CITRATE 30 ML UDCUP PO PRN (04:00)
--- NOTE | 2017-12-14 10:12 | PDANEPAE ---
ECT Pre Anesthetic Evaluation Allergies/Adverse Reactions: ketamine Allergy (Verified 11/20/17 22:10) nausea/vomiting morphine Allergy (Verified 11/20/17 22:10) psychosis oxycodone Allergy (Verified 11/20/17 22:10) psychosis Patient ID confirmed: Yes H&P reviewed: Yes Pre-anesthetic history reviewed: Yes Heart: regular rate and rhythym, no murmur, rub, or gallop Lungs: no respiratory distress, clear to auscultation Mallampati Score: Class 1 ASA Status: I Home Medications: Medication Instructions Recorded lamoTRIgine [LamICTAL 100 MG (*)] 250 mg PO HS 10/07/16 Vraylar 4.5 mg PO HS 08/29/17 Cholecalciferol Vit D3 [Vitamin D3 1,000 units PO HS 11/21/17 (*)] Gabapentin [Neurontin 300 MG (*)] 300 mg PO TID 11/21/17 Ibuprofen [Motrin (*)] 400 mg PO DAILY PRN 11/21/17 L-Methylfolate 15m Cap 15 mg PO HS 11/21/17 LORazepam [Ativan (*)] 1 - 2 mg PO DAILY PRN 11/21/17 [place] Carbonate ER [Lithobid 300 1,500 mg PO HS 11/21/17 mg (*)] lamoTRIgine [LamICTAL] 25 mg PO HS 11/21/17 Medication review: completed Patient interviewed: Yes Patient examined: Yes Anesthetic plan discussed with patient: Yes Anesthetic risks discussed with patient: Yes ECT Pre-Anesthetic History - Height & Weight Height: 180.34 cm Weight: 72.393 kg BMI: 22.27 - Anesthesia History Hx Anesthesia Complications (with details): None Family Hx Anesthesia Complications: None - Medications In the Past 6 Months the Patient Has Taken: Aspirin - Tobacco/Alcohol/Drug Use Smoking Status: Current every day smoker Hx Drug/Substance Abuse: No Alcohol Use: Yes - Prior Surgeries/Hospitalizations Prior Surgeries: Fracture repair of left femur - Pulmonary History ECT Hx Asthma: No Hx Abnormal Chest X-Ray: No Hx Oxygen in Use at Home: No - Cardiovascular History Hx Hypertension: No Currently Uses Hypertension Medication: No Hx Arrhythmias: No Hx Palpitations: No Hx Chest Pain: No Hx Coronary Artery / Peripheral Vascular Disease: No Hx Blood Clot: No - Neurologic History Hx Cerebrovascular Accident: No Hx CT Scan Or MRI Of The Brain: No Hx Epilepsy, Convulsions, Seizures, Or Blackouts: No Hx Frequent Or Severe Headaches: No Hx Numbness: No Hx Neurologic Disorder: No - Dental History Current Dental Issues: None Dental History Comment: Pt. answered yes to "dentures, caps, bridges or braces. " Discussed with Dr. Eubanks. Will document specifics at next evaluation. Pt states he has one fake tooth. - Endocrine History Hx Diabetes: No Current Daily Insulin Injections: No Hx Thyroid Problems: No - Renal/Urologic History Hx Renal Disorders: No Hx Urinary Tract Problems: No - Liver History Hx Hepatic Disorders: No - Cancer History Hx Cancer: No - Hematology History Hx Unexplained Bleeding Of Any Type: No Hx Ease Of Bruising: No Hx Anemia: No - Gastrointestinal History Hx Gastroesophogeal Reflux Disease: No Hx Ulcers: No Hx Hiatal Hernia: No Hx Difficulty Swallowing: No - Musculoskeletal Hisory Hx Chronic Pain: No Hx Arthritis: No - Opthalmic History Hx Glaucoma: No Visual Assistive Devices: Contacts Hx Opthalmic Disorders: No - Other Health History Physical Disabililty: No Recent Cough, Cold, or Fever: No Significant Weight Loss In The Last 4 Months: No Possible the Patient Might be : No
--- NOTE | 2017-12-14 10:15 | PDECTPN ---
ECT Progress Note Patient Problems: Problems Problem Status Onset Code Schizoaffective disorder Acute F25.9 Suicidal ideation Acute R45.851 Acute psychosis Acute F23 Forearm laceration involving tendon Acute S51.819A, S56.929A Marijuana abuse Acute F12.10 Self-inflicted injury Acute Z72.89 Date: 12/14/17 Treatment#: 8 ECT provider: Gomez Lopez Anesthesia: Justin Eubanks Stimulus dose (%): 100 Pulse width: 0.5 ECT EMG (sec): 19 ECT EEG (sec): 34 ECT treatment type: bilateral QIDS-SR Total Score: 4 QIDS-SR Question #12 Score: 0 MMSE Total Score (Max = 21): 21 Next ECT date: 12/17/17 Next ECT time: 10:45 O/P psychiatrist follow up with DrReva: Jaron Perez O/P psychiatrist follow up: phone, voice message Home medications: Medication Instructions Recorded lamoTRIgine [LamICTAL 100 MG (*)] 250 mg PO HS 10/07/16 Vraylar 4.5 mg PO HS 08/29/17 Cholecalciferol Vit D3 [Vitamin D3 1,000 units PO HS 11/21/17 (*)] Gabapentin [Neurontin 300 MG (*)] 300 mg PO TID 11/21/17 Ibuprofen [Motrin (*)] 400 mg PO DAILY PRN 11/21/17 L-Methylfolate 15m Cap 15 mg PO HS 11/21/17 LORazepam [Ativan (*)] 1 - 2 mg PO DAILY PRN 11/21/[address] [place] Carbonate ER [Lithobid 300 1,500 mg PO HS 11/21/17 mg (*)] lamoTRIgine [LamICTAL] 25 mg PO HS 11/21/17 Medication review: completed Current treatment plan: acute phase Treatment plan frequency: 3 times per week ECT narrative: Reviewed inpatient chart. Inteviewed pt. He still c/o of paranioa and referential ideas, some AH and mood that is marked by some expansive, grandiose themes. No overt signs of veronica or depression however and QIDS was 4. Intense CAH to hurt self is abated, but pt somewhat guarded when answering this. No sig SE with Cloz at 100 mg. Will titrate to 150 mg and check levels soon thereafter. Will discuss dispo options with pt and parents tomorrow. Cont acute B ECT as well. WBC wnl. VS stable without tachycardia or hyperpyrexia 12/10/17 reviewed notes from weekend. Delirium appears fully resolved. Pt scores MMSE 21/21, and his A and O x3. Has, as expected, unclear recollection of events of last week. Still with some mood lability and AH, and paranoia, most prominent at night. Will change cloz to dinner time to address this. Will re attempt ECT, in the absence of Li and will lower dose CLoz, with hopes of getting benefit without confusional state. WIll also hold any AED med the night before each tx (gabapentin and LMT). Indeed, will lower LMT for duration of acute ECT to ensure maximal seizure activity. After acute ECT is completed, will re-increase LMT, restart Li at prior dose and encourage further titration of Cloz given its low serum level 12/12 Pt remains impov, PMR, increased response latency.Still endorses hs paranoia and AH, yet not as intense or negative as it had been. Will proceed with acute ECT through Sunday, then consider re-start Li and increase Cloz with mECT done at a freq (ie, weekly) rate. Or, it may be necessary to proceed into next week with further acute ECT and hold off on med changes until completed. 12/14 Pt still quite paranoid, with notable response latency. Guarded re notion of technical publications writer being incorporated into his delusional system. No SE noted with first depakote dose. Plan to do ECT into next week, and cont meds--including depakote- -holding doses of any AED the night prior to ECT
[2017-12-14] MEDS ORDERED: HYDROCODONE/APAP 5/325 TAB PO PRN (10:21)
[2017-12-14] MEDS ORDERED: NALOXONE HCL 0.4 MG/ML INJ IVP PRN (10:21)
[2017-12-14] MEDS ORDERED: PROMETHAZINE HCL 25 MG TAB PO PRN (10:21)
[2017-12-14] MEDS: GABAPENTIN 300 MG CAP PO SCH (11:43)
[2017-12-14] MEDS: METHYLFOLATE 15 MG PO SCH (15:25)
[2017-12-14] MEDS: cloZAPine 100 MG TAB PO SCH (18:22)
[2017-12-14] MEDS: CHOLECALCIFEROL VIT D3 1,000 UNITS TAB PO SCH (20:41)
[2017-12-14] MEDS: lamoTRIgine 100 MG TAB PO SCH (20:41)
[2017-12-14] MEDS: DIVALPROEX ER 250 MG TAB PO SCH (20:41)
[2017-12-14] MEDS: LITHIUM CARBONATE ER 300 MG TAB PO SCH (20:41)
[2017-12-15] MEDS: DIVALPROEX ER 250 MG TAB PO SCH ×2 (07:53→19:11)
--- NOTE | 2017-12-15 18:24 | SOAPPROG ---
SOAP Progress Note Assessment/Plan: Assessment: Per Dr. Lopez's note: Reviewed inpatient chart. Inteviewed pt. He still c/o of paranioa and referential ideas, some AH and mood that is marked by some expansive, grandiose themes. No overt signs of veronica or depression however and QIDS was 4. Intense CAH to hurt self is abated, but pt somewhat guarded when answering this. No sig SE with Cloz at 100 mg. Will titrate to 150 mg and check levels soon thereafter. Will discuss dispo options with pt and parents tomorrow. Cont acute B ECT as well. WBC wnl. VS stable without tachycardia or hyperpyrexia 12/10/17 reviewed notes from weekend. Delirium appears fully resolved. Pt scores MMSE 21/21, and his A and O x3. Has, as expected, unclear recollection of events of last week. Still with some mood lability and AH, and paranoia, most prominent at night. Will change cloz to dinner time to address this. Will re attempt ECT, in the absence of Li and will lower dose CLoz, with hopes of getting benefit without confusional state. WIll also hold any AED med the night before each tx (gabapentin and LMT). Indeed, will lower LMT for duration of acute ECT to ensure maximal seizure activity. After acute ECT is completed, will re-increase LMT, restart Li at prior dose and encourage further titration of Cloz given its low serum level 12/12 Pt remains impov, PMR, increased response latency.Still endorses hs paranoia and AH, yet not as intense or negative as it had been. Will proceed with acute ECT through Sunday, then consider re-start Li and increase Cloz with mECT done at a freq (ie, weekly) rate. Or, it may be necessary to proceed into next week with further acute ECT and hold off on med changes until completed. 12/14 Pt still quite paranoid, with notable response latency. Guarded re notion of chart writer being incorporated into his delusional system. No SE noted with first depakote dose. Plan to do ECT into next week, and cont meds--including depakote- -holding doses of any AED the night prior to ECT PLAN: 12/15/17 18:19 1. Patient says he felt "out of it" but no specific mention of increased paranoia yesterday. This AM, he told RN that he thought other patients had phones and cameras, but couldn't exactly explain why this bothered him. He seems more delusional and less able to articulate his internal state of mind. 2. Recent med changes include addition of Depakote. No reported SE's or physical complaints. 3. CCM - next ECT Sunday Subjective: Met with patient, reviewed chart and d/w staff. Patient had odd affect today. Initially he was pleasant and seemed engage with MD's questions, but just as quickly he appeared to have thought blocking and started off into space for long period of time. When he made eye contact again with MD, he picked up exactly where he left off and started laughing. He said he "didn't really remember anything" but he couldn't tell if his new med (VPA) was helping or not. Objective: Vital Signs Temp Pulse Resp BP Pulse Ox 36.7 C 81 16 97/61 L 95 12/15/17 06:00 12/15/17 06:00 12/15/17 06:00 12/15/17 06:00 12/15/17 06:00 Laboratory Results 12/11/17 07:00 12/14/17 12/15/17 12/16/17 05:59 05:59 05:59 Intake Total 915 Balance 915 MSE: Affect: Odd, inappropriate laughter Mood: "OK" TP: Latency, tangential, blocking TC: Denies any SI/HI, more paranoid, AH Insight/Judgment: Impaired - Time Spent With Patient Time Spent With Patient: 15" - Pending Discharge Pending Discharge Within 24 Hours: No Pending Discharge Within 48 Hours: No ICD10 Worksheet Patient Problems: Problems Problem Status Onset Schizoaffective disorder Acute Suicidal ideation Acute Acute psychosis Acute Forearm laceration involving tendon Acute Marijuana abuse Acute Self-inflicted injury Acute
[2017-12-15] MEDS: CHOLECALCIFEROL VIT D3 1,000 UNITS TAB PO SCH (19:11)
[2017-12-15] MEDS: cloZAPine 100 MG TAB PO SCH (19:11)
[2017-12-15] MEDS: LITHIUM CARBONATE ER 300 MG TAB PO SCH (19:11)
[2017-12-15] MEDS: lamoTRIgine 100 MG TAB PO SCH (19:11)
[2017-12-15] MEDS: METHYLFOLATE 15 MG PO SCH (19:12)
[2017-12-16] MEDS: DIVALPROEX ER 250 MG TAB PO SCH (08:04)
[2017-12-16] MEDS: LITHIUM CARBONATE ER 300 MG TAB PO SCH (18:12)
--- NOTE | 2017-12-16 18:13 | SOAPPROG ---
SOAP Progress Note Assessment/Plan: Assessment: Per Dr. Lopez's note: Reviewed inpatient chart. Inteviewed pt. He still c/o of paranioa and referential ideas, some AH and mood that is marked by some expansive, grandiose themes. No overt signs of veronica or depression however and QIDS was 4. Intense CAH to hurt self is abated, but pt somewhat guarded when answering this. No sig SE with Cloz at 100 mg. Will titrate to 150 mg and check levels soon thereafter. Will discuss dispo options with pt and parents tomorrow. Cont acute B ECT as well. WBC wnl. VS stable without tachycardia or hyperpyrexia 12/10/17 reviewed notes from weekend. Delirium appears fully resolved. Pt scores MMSE 21/21, and his A and O x3. Has, as expected, unclear recollection of events of last week. Still with some mood lability and AH, and paranoia, most prominent at night. Will change cloz to dinner time to address this. Will re attempt ECT, in the absence of Li and will lower dose CLoz, with hopes of getting benefit without confusional state. WIll also hold any AED med the night before each tx (gabapentin and LMT). Indeed, will lower LMT for duration of acute ECT to ensure maximal seizure activity. After acute ECT is completed, will re-increase LMT, restart Li at prior dose and encourage further titration of Cloz given its low serum level 12/12 Pt remains impov, PMR, increased response latency.Still endorses hs paranoia and AH, yet not as intense or negative as it had been. Will proceed with acute ECT through Sunday, then consider re-start Li and increase Cloz with mECT done at a freq (ie, weekly) rate. Or, it may be necessary to proceed into next week with further acute ECT and hold off on med changes until completed. 12/14 Pt still quite paranoid, with notable response latency. Guarded re notion of race and sports book writer being incorporated into his delusional system. No SE noted with first depakote dose. Plan to do ECT into next week, and cont meds--including depakote- -holding doses of any AED the night prior to ECT PLAN: 12/15/17 18:19 1. Patient says he felt "out of it" but no specific mention of increased paranoia yesterday. This AM, he told RN that he thought other patients had phones and cameras, but couldn't exactly explain why this bothered him. He seems more delusional and less able to articulate his internal state of mind. 2. Recent med changes include addition of Depakote. No reported SE's or physical complaints. 3. CCM - next ECT Sunday12/16/17 18:09 1. No real change in mood or affect today. He spent more time out of his room, watching TV. 2. Slept better last night 3. Maintaining a healthy appetite, eating snacks as well as meals 4. ECT tomorrow Subjective: Met with patient, reviewed chart and d/w staff. Patient didn't have anything to report when MD asked how he felt today. He says he "can't remember" what's different now than last weekend when MD saw him. Objective: Vital Signs Temp Pulse Resp BP Pulse Ox 36.7 C 74 14 107/73 97 12/15/17 06:00 12/16/17 06:00 12/16/17 06:00 12/16/17 06:00 12/16/17 06:00 Laboratory Results 12/11/17 07:00 12/15/17 12/16/17 12/17/17 05:59 05:59 05:59 Intake Total 915 Balance 915 MSE: Affect: Euthymic Mood: "OK, I guess" TP: Thought blocking, response latency, confused at times TC: Denies any SI/HI, still hears "voices;" continues to have paranoid thoughts about peers and cameras Insight/Judgment: Poor - Time Spent With Patient Time Spent With Patient: 15" - Pending Discharge Pending Discharge Within 24 Hours: No Pending Discharge Within 48 Hours: No ICD10 Worksheet Patient Problems: Problems Problem Status Onset Schizoaffective disorder Acute Suicidal ideation Acute Acute psychosis Acute Forearm laceration involving tendon Acute Marijuana abuse Acute Self-inflicted injury Acute
[2017-12-16] MEDS: CHOLECALCIFEROL VIT D3 1,000 UNITS TAB PO SCH (20:03)
[2017-12-16] MEDS: cloZAPine 100 MG TAB PO SCH (20:03)
[2017-12-16] MEDS: METHYLFOLATE 15 MG PO SCH (20:03)
[2017-12-17] MEDS ORDERED: THEOPHYLLINE ORAL SOLUTION 80 MG/15 ML UDCUP PO ONE ×2 (04:00→07:30)
[2017-12-17] MEDS ORDERED: ONDANSETRON DISINTEGRATING 4 MG TAB PO PRN ×2 (04:00→11:41)
[2017-12-17] MEDS ORDERED: CITRIC ACID/SODIUM CITRATE 30 ML UDCUP PO PRN (04:00)
[2017-12-17] MEDS ORDERED: PROMETHAZINE HCL 25 MG TAB PO PRN (04:00)
[2017-12-17] MEDS ORDERED: NS 1,000 ML IV PRN (04:00)
[2017-12-17] MEDS ORDERED: GLYCOPYRROLATE 0.2 MG/1 ML VIAL ONE (05:33)
[2017-12-17] MEDS ORDERED: MIDAZOLAM 2 MG/2 ML VIAL ONE (05:33)
[2017-12-17] MEDS ORDERED: fentaNYL 100 MCG/2 ML INJ ONE (05:33)
[2017-12-17] MEDS ORDERED: ROCURONIUM 50 MG/5 ML VIAL ONE (05:34)
[2017-12-17] MEDS ORDERED: SUCCINYLCHOLINE CHLORIDE 200 MG/10 ML VIAL ONE (05:34)
[2017-12-17] MEDS ORDERED: ETOMIDATE 20 MG/10 ML VIAL ONE (05:34)
[2017-12-17] MEDS ORDERED: ONDANSETRON 4 MG/2 ML VIAL ONE (05:34)
[2017-12-17] MEDS ORDERED: HYDROCODONE/APAP 5/325 TAB PO PRN (11:41)
[2017-12-17] MEDS ORDERED: NALOXONE HCL 0.4 MG/ML INJ IVP PRN (11:41)
--- NOTE | 2017-12-17 11:41 | PDECTPN ---
ECT Progress Note Patient Problems: Problems Problem Status Onset Code Schizoaffective disorder Acute F25.9 Suicidal ideation Acute R45.851 Acute psychosis Acute F23 Forearm laceration involving tendon Acute S51.819A, S56.929A Marijuana abuse Acute F12.10 Self-inflicted injury Acute Z72.89 Date: 12/17/17 ECT provider: Gomez Lopez Anesthesia: Justin Eubanks Stimulus dose (%): 100 Pulse width: 0.5 ECT EMG (sec): 18 ECT EEG (sec): 40 ECT treatment type: bilateral QIDS-SR Total Score: 2 QIDS-SR Question #12 Score: 0 MMSE Total Score (Max = 21): 21 Next ECT date: 12/21/17 Next ECT time: 06:30 O/P psychiatrist follow up with DrReva: Jaron Perez O/P psychiatrist follow up: phone, voice message Home medications: Medication Instructions Recorded lamoTRIgine [LamICTAL 100 MG (*)] 250 mg PO HS 10/07/16 Vraylar 4.5 mg PO HS 08/29/17 Cholecalciferol Vit D3 [Vitamin D3 1,000 units PO HS 11/21/17 (*)] Gabapentin [Neurontin 300 MG (*)] 300 mg PO TID 11/21/17 Ibuprofen [Motrin (*)] 400 mg PO DAILY PRN 11/21/17 L-Methylfolate 15m Cap 15 mg PO HS 11/21/17 LORazepam [Ativan (*)] 1 - 2 mg PO DAILY PRN 11/21/17 [place] Carbonate ER [Lithobid 300 1,500 mg PO HS 11/21/17 mg (*)] lamoTRIgine [LamICTAL] 25 mg PO HS 11/21/17 Medication review: completed Current treatment plan: acute phase Treatment plan frequency: 3 times per week ECT narrative: Reviewed inpatient chart. Inteviewed pt. He still c/o of paranioa and referential ideas, some AH and mood that is marked by some expansive, grandiose themes. No overt signs of veronica or depression however and QIDS was 4. Intense CAH to hurt self is abated, but pt somewhat guarded when answering this. No sig SE with Cloz at 100 mg. Will titrate to 150 mg and check levels soon thereafter. Will discuss dispo options with pt and parents tomorrow. Cont acute B ECT as well. WBC wnl. VS stable without tachycardia or hyperpyrexia 12/10/17 reviewed notes from weekend. Delirium appears fully resolved. Pt scores MMSE 21/21, and his A and O x3. Has, as expected, unclear recollection of events of last week. Still with some mood lability and AH, and paranoia, most prominent at night. Will change cloz to dinner time to address this. Will re attempt ECT, in the absence of Li and will lower dose CLoz, with hopes of getting benefit without confusional state. WIll also hold any AED med the night before each tx (gabapentin and LMT). Indeed, will lower LMT for duration of acute ECT to ensure maximal seizure activity. After acute ECT is completed, will re-increase LMT, restart Li at prior dose and encourage further titration of Cloz given its low serum level 12/12 Pt remains impov, PMR, increased response latency.Still endorses hs paranoia and AH, yet not as intense or negative as it had been. Will proceed with acute ECT through Sunday, then consider re-start Li and increase Cloz with mECT done at a freq (ie, weekly) rate. Or, it may be necessary to proceed into next week with further acute ECT and hold off on med changes until completed. 12/14 Pt still quite paranoid, with notable response latency. Guarded re notion of service writer advisor being incorporated into his delusional system. No SE noted with first depakote dose. Plan to do ECT into next week, and cont meds--including depakote- -holding doses of any AED the night prior to ECT 12/17 Received vm from mother indicating some delirium noted; pt remains with some paranoid over valued ideas and includes this service writer advisor in a delusional system involving surveying him. Will hold off on ECT sun and do 2x/week this week, allowing for meds to be Rx'ed with less interruption as well. Will decrease Li to 900 mg, as Depakote on board at 1000 mg (will check level on Sun). LMT to be kept at 100 mg, down from 275, due to interaction with VPA. Cloz will remains at 100 mg, but has room for improvement in terms of blood level once ECT is being done at 1x/week or less frequently (increased chance for cognitive impact with its anticholinergic SE when coupled with acute ECT).
[2017-12-17] MEDS: cloZAPine 100 MG TAB PO SCH (17:39)
[2017-12-17] MEDS: DIVALPROEX ER 250 MG TAB PO SCH (21:19)
[2017-12-17] MEDS: lamoTRIgine 100 MG TAB PO SCH (21:19)
[2017-12-17] MEDS: CHOLECALCIFEROL VIT D3 1,000 UNITS TAB PO SCH (21:19)
[2017-12-17] MEDS: LITHIUM CARBONATE ER 300 MG TAB PO SCH (21:20)
[2017-12-17] MEDS: METHYLFOLATE 15 MG PO SCH (21:26)
[2017-12-18 08:53] LABS: PLATELET COUNT 216 10^3/uL (150-400)
[2017-12-18] MEDS: DIVALPROEX ER 250 MG TAB PO SCH ×2 (09:01→20:38)
--- NOTE | 2017-12-18 11:37 | SOAPPROG ---
SOAP Progress Note Assessment/Plan: Assessment: Schizoaffective d/o Bipolar Type Plan: Pt engaged in Art therapy and in milieu, which is improvement for him. However, he endorses on going AH and grandiose delusional beliefs. Still also occasional CAH to hurt self but he feels more empowered to NOT act on them. Tolerating CLoz with only mild sedation. WIll check levels am reflective of dose of 150 mg. Will cont acute B ect. Pt does not feel as if ECT increases AH; he indicated that that was an infrequent association he made. On MSE, he is pleasant and cooperative, but has marked response latency, ( almost as if responding to internal stimuli vs thought blocking). He is mildly disheveled. 12/04/17 12:15 12/04/17 12:28 12/05/17 18:00 Pt skipped ECT today, initially due to report that he had eaten a muffin at 9am. Pt insisted he did but staffing analyst had good evidence to contrary. On further eval, he appears to staffing analyst to be more confused and disoriented. I inteviewed him later in day and confirmed a notable change with some disorientation, disorganized speech and poor STM that seemed more c/w an acute confusional state rather than symptomatic of his mood/psychotic disorder. He has significant potential contributants to this including 1) acute ECT 2) Li with level of 1.0 with use during acute ECT and 3) recent addition and titration of strongly anticholinergic Clozaril. Will hold doses of [place], and reduce Cloz back to 100 mg (checking level in AM ), May need to hold ECT sunday if confusion continues. He is not agitated nor expressing any drive to self harm, either from CAH or otherwise. Will keep him on precautions however, given change in MS. Further, he is afebrile, not rigid, with stable VS that are WNL 12/05/17 18:05 12/05/17 18:07 12/06/17 16:30 Pt is a bit less confused and less disoriented today (A O X3) Yet still some increased thought blocking, word finding, increased response latency and inability to answer more open, less structured questions. Describes mood as labile ranging intraday from overly happy/euphoric to depressed and anxious. Does have paranoid delusions that are more prominent at hs (?c/w delirium, atop his baseline psychosis). Unable to answer Q re status of CAH becoming almost momentarily fixed in his gaze downward and ultimately beginning, many seconds later, to respond in a non sensical/disorganized fashion. Will cont to hold Li one more night, then maybe restart at lower dose. Will hold ECT tomorrow. Cloz back down to 100mg with levels pnd. Perfects storm of acute ECT--with its cognitive SEs and increased permeability of BBB-coupled with delerogenic meds with greater E[employer] penetration (Li and Cloz), contributed to delirium. No discharge tomorrow given this clinical event. 12/07/17 14:21 Met with patient and parents today. He is much improved in terms of delirium as of today. Discussed virtue of continueing acute ECT along with Cloz into next week but that we will hold Li for duration of acute tx. Pt still expressing some concerns for own safety if out [place]. Pt feeling "Up " during visit and some inappropriate laughter was noted. He was not otherwise engaged in visit, and most of the discussion was btw parents and typewriter ribbon winder 12/11/17 13:35 Pt interviewed today, one day post last ECT. He is A O times 3. Still with increased response latency, especially when asked open ended question pertaining to his mood or psychotic symptoms. Less so for emotionally neutral topics or more structured questions. Presently, feels that CAH are in the background by states that "the plot goes that they [the CAH] will come back in the real world" describing his concern that he is still quite fragile and susceptible to increased psychotic symptoms under the stressors of beiing out of hospital. Moods is likewise presently not overtly manic or depressed. He has no ego-syntonic desire to kill himself at present. In retrospecting over last 24 hours--limited in his ability to do so by virtue of STM impact of ECT/recent delirium--he feels that he had had some mood lability with arguably manic bouts involving graniosity and expansive mood. Plan is to do at least two more acute ECTs inpt, while continueing to hold Li and keep Cloz at 100. Post acute ECT, Li to be restarted, and Cloz to be titrated higher given low level. 12/13/17 15:58 Pt apparently has incorporated me into a paranoid delusional system. His "observing ego" is aware that there is no rational basis for idea but he feels it nonetheless. I queried whether it will be an impedement in his trusting my suggestions as his psychiatrist. He indicated not. I shared lengthy discussion I had had with Dr Perez about re-starting DEPakote. He agrees. Will need to decrease home dosage of LMT. Will start with low dose so as not to interfere markedly with ECT efficacy. He is unkempt, odd, intermittant in eye contact, with increased response latency. Mood remains labile, per pt. +AH yet denies intense CAH with coaxing of him to self harm while on unit, but still with fear of that happening if not here. 12/18/17 11:31 Pt is seen in room, where he was upright in bed, not sleeping mid morning. He is A and O x3. No evidence of delirium. He was less delayed in respose time today as well, and showed insight into the delusional material reported. Reports some new delusional material re his voices becoming the "treatment team " and starting to exert influence over his treatment course. He bemoans dramatic amnesia for last month or longer, but responded to reassurance that that is expected from ECT and his illness exacerbation itself. Tolerating med changes without C/O. Will increase CLoz today to 150 mg as we are holding off on ECT Sunday. Checking levels. This episode is proving quite refractory to med and acute ECT both, with the limiting factor of confusional states and pronounced STM effects from the confluence of both treatment modalities. I shared with him that two options are available to him: first is to reduce ECT frequency and maximize med dosing. Second, it to clear all meds temporarily whilst instituting further 3x/week ECT (with the theory that the ECT efficacy is being partly reduced by his remaining on AED meds and meds that increase cognitive impact, such as Li). We are to attempt the first option first with his consent, which was provided. Objective: Vital Signs Temp Pulse Resp BP Pulse Ox 36.5 C 98 14 117/64 97 12/18/17 06:00 12/18/17 06:00 12/18/17 06:00 12/18/17 06:00 12/18/17 06:00 Laboratory Results 12/18/17 06:00 12/17/17 12/18/17 12/19/17 05:59 05:59 05:59 Intake Total 800 Balance 800 Laboratory Tests 12/18/17 06:00 WBC 6.25 Absolute Neuts (auto) 3.86 ICD10 Worksheet Patient Problems: Problems Problem Status Onset Schizoaffective disorder Acute Suicidal ideation Acute Acute psychosis Acute Forearm laceration involving tendon Acute Marijuana abuse Acute Self-inflicted injury Acute
[2017-12-18] MEDS: cloZAPine 100 MG TAB PO SCH (17:28)
[2017-12-18] MEDS: CHOLECALCIFEROL VIT D3 1,000 UNITS TAB PO SCH (20:38)
[2017-12-18] MEDS: LITHIUM CARBONATE ER 300 MG TAB PO SCH (20:38)
[2017-12-18] MEDS: lamoTRIgine 100 MG TAB PO SCH (20:38)
[2017-12-18] MEDS: METHYLFOLATE 15 MG PO SCH (20:39)
[2017-12-19] MEDS: DIVALPROEX ER 250 MG TAB PO SCH ×2 (09:02→21:09)
--- NOTE | 2017-12-19 13:25 | SOAPPROG ---
SOAP Progress Note Assessment/Plan: Assessment: Schizoaffective d/o Bipolar Type Plan: Pt engaged in Art therapy and in milieu, which is improvement for him. However, he endorses on going AH and grandiose delusional beliefs. Still also occasional CAH to hurt self but he feels more empowered to NOT act on them. Tolerating CLoz with only mild sedation. WIll check levels am reflective of dose of 150 mg. Will cont acute B ect. Pt does not feel as if ECT increases AH; he indicated that that was an infrequent association he made. On MSE, he is pleasant and cooperative, but has marked response latency, ( almost as if responding to internal stimuli vs thought blocking). He is mildly disheveled. 12/04/17 12:15 12/04/17 12:28 12/05/17 18:00 Pt skipped ECT today, initially due to report that he had eaten a muffin at 9am. Pt insisted he did but staff toxicologist had good evidence to contrary. On further eval, he appears to staff toxicologist to be more confused and disoriented. I inteviewed him later in day and confirmed a notable change with some disorientation, disorganized speech and poor STM that seemed more c/w an acute confusional state rather than symptomatic of his mood/psychotic disorder. He has significant potential contributants to this including 1) acute ECT 2) Li with level of 1.0 with use during acute ECT and 3) recent addition and titration of strongly anticholinergic Clozaril. Will hold doses of [place], and reduce Cloz back to 100 mg (checking level in AM ), May need to hold ECT sunday if confusion continues. He is not agitated nor expressing any drive to self harm, either from CAH or otherwise. Will keep him on precautions however, given change in MS. Further, he is afebrile, not rigid, with stable VS that are WNL 12/05/17 18:05 12/05/17 18:07 12/06/17 16:30 Pt is a bit less confused and less disoriented today (A O X3) Yet still some increased thought blocking, word finding, increased response latency and inability to answer more open, less structured questions. Describes mood as labile ranging intraday from overly happy/euphoric to depressed and anxious. Does have paranoid delusions that are more prominent at hs (?c/w delirium, atop his baseline psychosis). Unable to answer Q re status of CAH becoming almost momentarily fixed in his gaze downward and ultimately beginning, many seconds later, to respond in a non sensical/disorganized fashion. Will cont to hold Li one more night, then maybe restart at lower dose. Will hold ECT tomorrow. Cloz back down to 100mg with levels pnd. Perfects storm of acute ECT--with its cognitive SEs and increased permeability of BBB-coupled with delerogenic meds with greater [employer] penetration (Li and Cloz), contributed to delirium. No discharge tomorrow given this clinical event. 12/07/17 14:21 Met with patient and parents today. He is much improved in terms of delirium as of today. Discussed virtue of continueing acute ECT along with Cloz into next week but that we will hold Li for duration of acute tx. Pt still expressing some concerns for own safety if out of the [place]. Pt feeling "Up " during visit and some inappropriate laughter was noted. 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 He is A O times 3. Still with increased response latency, especially when asked open ended question pertaining to his mood or psychotic symptoms. Less so for emotionally neutral topics or more structured questions. Presently, feels that CAH are in the background by states that "the plot goes that they [the CAH] will come back in the real world" describing his concern that he is still quite fragile and susceptible to increased psychotic symptoms under the stressors of beiing out of hospital. Moods is likewise presently not overtly manic or depressed. He has no ego-syntonic desire to kill himself at present. In retrospecting over last 24 hours--limited in his ability to do so by virtue of STM impact of ECT/recent delirium--he feels that he had had some mood lability with arguably manic bouts involving graniosity and expansive mood. Plan is to do at least two more acute ECTs inpt, while continueing to hold Li and keep Cloz at 100. Post acute ECT, Li to be restarted, and Cloz to be titrated higher given low level. 12/13/17 15:58 Pt apparently has incorporated me into a paranoid delusional system. His "observing ego" is aware that there is no rational basis for idea but he feels it nonetheless. I queried whether it will be an impedement in his trusting my suggestions as his psychiatrist. He indicated not. I shared lengthy discussion I had had with Dr Peerz about re-starting DEPakote. He agrees. Will need to decrease home dosage of LMT. Will start with low dose so as not to interfere markedly with ECT efficacy. He is unkempt, odd, intermittant in eye contact, with increased response latency. Mood remains labile, per pt. +AH yet denies intense CAH with coaxing of him to self harm while on unit, but still with fear of that happening if not here. 12/18/17 11:31 Pt is seen in room, where he was upright in bed, not sleeping mid morning. He is A and O x3. No evidence of delirium. He was less delayed in respose time today as well, and showed insight into the delusional material reported. Reports some new delusional material re his voices becoming the "treatment team " and starting to exert influence over his treatment course. He bemoans dramatic amnesia for last month or longer, but responded to reassurance that that is expected from ECT and his illness exacerbation itself. Tolerating med changes without C/O. Will increase CLoz today to 150 mg as we are holding off on ECT Sunday. Checking levels. This episode is proving quite refractory to med and acute ECT both, with the limiting factor of confusional states and pronounced STM effects from the confluence of both treatment modalities. I shared with him that two options are available to him: first is to reduce ECT frequency and maximize med dosing. Second, it to clear all meds temporarily whilst instituting further 3x/week ECT (with the theory that the ECT efficacy is being partly reduced by his remaining on AED meds and meds that increase cognitive impact, such as Li). We are to attempt the first option first with his consent, which was provided. 12/19/17 13:23 Li level .6, VPA 42, LMT level pnd. No SE with meds noted by patient. C/O of STM effect, most likely due primarily to ECT. SOme ongoing increased response latency/thought blocking. Cont. Med unchanged for now. ECT for Sunday. Objective: Vital Signs Temp Pulse Resp BP Pulse Ox 36.7 C 80 20 120/61 98 12/19/17 06:00 12/19/17 06:00 12/19/17 06:00 12/19/17 06:00 12/19/17 06:00 Laboratory Results 12/18/17 06:00 12/19/17 06:00 12/18/17 12/19/17 12/20/17 05:59 05:59 05:59 Intake Total 800 Balance 800 Laboratory Tests 12/19/17 12/19/17 06:00 06:00 Valproic Acid 42.1 L Lamotrigine Pending [place] 0.6 ICD10 Worksheet Patient Problems: Problems Problem Status Onset Schizoaffective disorder Acute Suicidal ideation Acute Acute psychosis Acute Forearm laceration involving tendon Acute Marijuana abuse Acute Self-inflicted injury Acute
--- NOTE | 2017-12-19 13:31 | ASMTCMCOM ---
CM Note CM Note Notes: CC met with pt. after he finished playing cards with two other pts. He reported that he is doing well. However, he had a hard time forming his thoughts. He asked to get the phone to call a friend but couldn't come up with the name of the friend. Date Signed: 12/19/2017 01:31 PM Electronically Signed By:Dipika Rose
[2017-12-19] MEDS: cloZAPine 100 MG TAB PO SCH (19:25)
[2017-12-19] MEDS: lamoTRIgine 100 MG TAB PO SCH (21:09)
[2017-12-19] MEDS: CHOLECALCIFEROL VIT D3 1,000 UNITS TAB PO SCH (21:09)
[2017-12-19] MEDS: LITHIUM CARBONATE ER 300 MG TAB PO SCH (21:09)
[2017-12-19] MEDS: METHYLFOLATE 15 MG PO SCH (21:10)
[2017-12-20] MEDS: DIVALPROEX ER 250 MG TAB PO SCH ×2 (09:01→20:42)
--- NOTE | 2017-12-20 09:03 | SOAPPROG ---
SOAP Progress Note Assessment/Plan: Assessment: Schizoaffective d/o Bipolar Type Plan: Pt engaged in Art therapy and in milieu, which is improvement for him. However, he endorses on going AH and grandiose delusional beliefs. Still also occasional CAH to hurt self but he feels more empowered to NOT act on them. Tolerating CLoz with only mild sedation. WIll check levels am reflective of dose of 150 mg. Will cont acute B ect. Pt does not feel as if ECT increases AH; he indicated that that was an infrequent association he made. On MSE, he is pleasant and cooperative, but has marked response latency, ( almost as if responding to internal stimuli vs thought blocking). He is mildly disheveled. 12/04/17 12:15 12/04/17 12:28 12/05/17 18:00 Pt skipped ECT today, initially due to report that he had eaten a muffin at 9am. Pt insisted he did but senior staff specialized employment had good evidence to contrary. On further eval, he appears to senior staff specialized employment to be more confused and disoriented. I inteviewed him later in day and confirmed a notable change with some disorientation, disorganized speech and poor STM that seemed more c/w an acute confusional state rather than symptomatic of his mood/psychotic disorder. He has significant potential contributants to this including 1) acute ECT 2) Li with level of 1.0 with use during acute ECT and 3) recent addition and titration of strongly anticholinergic Clozaril. Will hold doses of [place], and reduce Cloz back to 100 mg (checking level in AM ), May need to hold ECT sunday if confusion continues. He is not agitated nor expressing any drive to self harm, either from CAH or otherwise. Will keep him on precautions however, given change in MS. Further, he is afebrile, not rigid, with stable VS that are WNL 12/05/17 18:05 12/05/17 18:07 12/06/17 16:30 Pt is a bit less confused and less disoriented today (A O X3) Yet still some increased thought blocking, word finding, increased response latency and inability to answer more open, less structured questions. Describes mood as labile ranging intraday from overly happy/euphoric to depressed and anxious. Does have paranoid delusions that are more prominent at hs (?c/w delirium, atop his baseline psychosis). Unable to answer Q re status of CAH becoming almost momentarily fixed in his gaze downward and ultimately beginning, many seconds later, to respond in a non sensical/disorganized fashion. Will cont to hold Li one more night, then maybe restart at lower dose. Will hold ECT tomorrow. Cloz back down to 100mg with levels pnd. Perfects storm of acute ECT--with its cognitive SEs and increased permeability of BBB-coupled with delerogenic meds with greater [employer] penetration (Li and Cloz), contributed to delirium. No discharge tomorrow given this clinical event. 12/07/17 14:21 Met with patient and parents today. He is much improved in terms of delirium as of today. Discussed virtue of continueing acute ECT along with Cloz into next week but that we will hold Li for duration of acute tx. Pt still expressing some concerns for own safety if out [place]. Pt feeling "Up " during visit and some inappropriate laughter was noted. He was not otherwise engaged in visit, and most of the discussion was btw parents and curriculum writer 12/11/17 13:35 Pt interviewed today, one day post last ECT. He is A O times 3. Still with increased response latency, especially when asked open ended question pertaining to his mood or psychotic symptoms. Less so for emotionally neutral topics or more structured questions. Presently, feels that CAH are in the background by states that "the plot goes that they [the CAH] will come back in the real world" describing his concern that he is still quite fragile and susceptible to increased psychotic symptoms under the stressors of beiing out of hospital. Moods is likewise presently not overtly manic or depressed. He has no ego-syntonic desire to kill himself at present. In retrospecting over last 24 hours--limited in his ability to do so by virtue of STM impact of ECT/recent delirium--he feels that he had had some mood lability with arguably manic bouts involving graniosity and expansive mood. Plan is to do at least two more acute ECTs inpt, while continueing to hold Li and keep Cloz at 100. Post acute ECT, Li to be restarted, and Cloz to be titrated higher given low level. 12/13/17 15:58 Pt apparently has incorporated me into a paranoid delusional system. His "observing ego" is aware that there is no rational basis for idea but he feels it nonetheless. I queried whether it will be an impedement in his trusting my suggestions as his psychiatrist. He indicated not. I shared lengthy discussion I had had with Dr Perez about re-starting DEPakote. He agrees. Will need to decrease home dosage of LMT. Will start with low dose so as not to interfere markedly with ECT efficacy. He is unkempt, odd, intermittant in eye contact, with increased response latency. Mood remains labile, per pt. +AH yet denies intense CAH with coaxing of him to self harm while on unit, but still with fear of that happening if not here. 12/18/17 11:31 Pt is seen in room, where he was upright in bed, not sleeping mid morning. He is A and O x3. No evidence of delirium. He was less delayed in respose time today as well, and showed insight into the delusional material reported. Reports some new delusional material re his voices becoming the "treatment team " and starting to exert influence over his treatment course. He bemoans dramatic amnesia for last month or longer, but responded to reassurance that that is expected from ECT and his illness exacerbation itself. Tolerating med changes without C/O. Will increase CLoz today to 150 mg as we are holding off on ECT Sunday. Checking levels. This episode is proving quite refractory to med and acute ECT both, with the limiting factor of confusional states and pronounced STM effects from the confluence of both treatment modalities. I shared with him that two options are available to him: first is to reduce ECT frequency and maximize med dosing. Second, it to clear all meds temporarily whilst instituting further 3x/week ECT (with the theory that the ECT efficacy is being partly reduced by his remaining on AED meds and meds that increase cognitive impact, such as Li). We are to attempt the first option first with his consent, which was provided. 12/19/17 13:23 Li level .6, VPA 42, LMT level pnd. No SE with meds noted by patient. C/O of STM effect, most likely due primarily to ECT. SOme ongoing increased response latency/thought blocking. Cont. Med unchanged for now. ECT for Sunday. 12/20/17 09:00 Pt interviewed while eating breakfast. Appreciated Emailed alert from staff on 3N re his delayed presentation last evening (post Cloz dose but pre night meds) and strange, illogical statements made about "G F[employer]ces" and "[employer]". He has limited recollection of event of last evening. This MAY speak to on going confusional states, c/w delirium due to "perfect storm" of acute ECT and his psychotropic meds. Will delay further acute ECT and concentrate on his med regimen for now given the confusion (which makes the it impossible to assess the level of his psychosis and mood symptoms). I will also hold off on increasing Cloz dose yet given its anticholinergic SEs, but will re check a Cloz level tomarrow AM Objective: Vital Signs Temp Pulse Resp BP Pulse Ox 36.7 C 80 20 120/61 98 12/19/17 06:00 12/19/17 06:00 12/19/17 06:00 12/19/17 06:00 12/19/17 06:00 Laboratory Results 12/18/17 06:00 12/19/17 06:00 ICD10 Worksheet Patient Problems: Problems Problem Status Onset Schizoaffective disorder Acute Suicidal ideation Acute Acute psychosis Acute Forearm laceration involving tendon Acute Marijuana abuse Acute Self-inflicted injury Acute
[2017-12-20] MEDS: cloZAPine 100 MG TAB PO SCH (17:47)
[2017-12-20] MEDS: LITHIUM CARBONATE ER 300 MG TAB PO SCH (20:41)
[2017-12-20] MEDS: METHYLFOLATE 15 MG PO SCH (20:42)
[2017-12-20] MEDS: lamoTRIgine 100 MG TAB PO SCH (20:43)
[2017-12-20] MEDS: CHOLECALCIFEROL VIT D3 1,000 UNITS TAB PO SCH (20:43)
[2017-12-21] MEDS ORDERED: THEOPHYLLINE ORAL SOLUTION 80 MG/15 ML UDCUP PO ONE (04:00)
[2017-12-21] MEDS ORDERED: ONDANSETRON DISINTEGRATING 4 MG TAB PO PRN (04:00)
[2017-12-21] MEDS ORDERED: NS 1,000 ML IV PRN (04:00)
[2017-12-21] MEDS ORDERED: CITRIC ACID/SODIUM CITRATE 30 ML UDCUP PO PRN (04:00)
[2017-12-21] MEDS: DIVALPROEX ER 250 MG TAB PO SCH ×2 (08:04→21:34)
--- NOTE | 2017-12-21 13:06 | ASMTCMCOM ---
CM Note CM Note Notes: CC speaks to client during check-in. Client is sitting down at a chair on the unit during our conversation. Client suggests currently feelings of anxiety 2/10, depression 2/10 and AH (voices- level of intensity) 2/10; while subjectively denying any want to harm self in that moment. Client's MOC left CC VM this morning requesting as well as inquiring about possible AG with client over weekend, etc. According to nurse (Keila) she did inform doctor of the request and is waiting on a response or order, etc. 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 Date Signed: 12/21/2017 01:05 PM Electronically Signed By:Sonido Perez
--- NOTE | 2017-12-21 15:29 | SOAPPROG ---
SOAP Progress Note Assessment/Plan: Assessment: Schizoaffective d/o Bipolar Type Plan: Pt engaged in Art therapy and in milieu, which is improvement for him. However, he endorses on going AH and grandiose delusional beliefs. Still also occasional CAH to hurt self but he feels more empowered to NOT act on them. Tolerating CLoz with only mild sedation. WIll check levels am reflective of dose of 150 mg. Will cont acute B ect. Pt does not feel as if ECT increases AH; he indicated that that was an infrequent association he made. On MSE, he is pleasant and cooperative, but has marked response latency, ( almost as if responding to internal stimuli vs thought blocking). He is mildly disheveled. 12/04/17 12:15 12/04/17 12:28 12/05/17 18:00 Pt skipped ECT today, initially due to report that he had eaten a muffin at 9am. Pt insisted he did but staff development educator had good evidence to contrary. On further eval, he appears to staff development educator to be more confused and disoriented. I inteviewed him later in day and confirmed a notable change with some disorientation, disorganized speech and poor STM that seemed more c/w an acute confusional state rather than symptomatic of his mood/psychotic disorder. He has significant potential contributants to this including 1) acute ECT 2) Li with level of 1.0 with use during acute ECT and 3) recent addition and titration of strongly anticholinergic Clozaril. Will hold doses of Lincoln[place], and reduce Cloz back to 100 mg (checking level in AM ), May need to hold ECT sunday if confusion continues. He is not agitated nor expressing any drive to self harm, either from CAH or otherwise. Will keep him on precautions however, given change in MS. Further, he is afebrile, not rigid, with stable VS that are WNL 12/05/17 18:05 12/05/17 18:07 12/06/17 16:30 Pt is a bit less confused and less disoriented today (A O X3) Yet still some increased thought blocking, word finding, increased response latency and inability to answer more open, less structured questions. Describes mood as labile ranging intraday from overly happy/euphoric to depressed and anxious. Does have paranoid delusions that are more prominent at hs (?c/w delirium, atop his baseline psychosis). Unable to answer Q re status of CAH becoming almost momentarily fixed in his gaze downward and ultimately beginning, many seconds later, to respond in a non sensical/disorganized fashion. Will cont to hold Li one more night, then maybe restart at lower dose. Will hold ECT tomorrow. Cloz back down to 100mg with levels pnd. Perfects storm of acute ECT--with its cognitive SEs and increased permeability of BBB-coupled with delerogenic meds with greater CHANGE NUMBER OPERATOR penetration (Li and Cloz), contributed to delirium. No discharge tomorrow given this clinical event. 12/07/17 14:21 Met with patient and parents today. He is much improved in terms of delirium as of today. Discussed virtue of continueing acute ECT along with Cloz into next week but that we will hold Li for duration of acute tx. Pt still expressing some concerns for own safety if out of the security of the [place]. Pt feeling "Up " during visit and some inappropriate laughter was noted. He was not otherwise engaged in visit, and most of the discussion was btw parents and remote mortgage underwriter 12/11/17 13:35 Pt interviewed today, one day post last ECT. He is A O times 3. Still with increased response latency, especially when asked open ended question pertaining to his mood or psychotic symptoms. Less so for emotionally neutral topics or more structured questions. Presently, feels that CAH are in the background by states that "the plot goes that they [the CAH] will come back in the real world" describing his concern that he is still quite fragile and susceptible to increased psychotic symptoms under the stressors of beiing out of hospital. Moods is likewise presently not overtly manic or depressed. He has no ego-syntonic desire to kill himself at present. In retrospecting over last 24 hours--limited in his ability to do so by virtue of STM impact of ECT/recent delirium--he feels that he had had some mood lability with arguably manic bouts involving graniosity and expansive mood. Plan is to do at least two more acute ECTs inpt, while continueing to hold Li and keep Cloz at 100. Post acute ECT, Li to be restarted, and Cloz to be titrated higher given low level. 12/13/17 15:58 Pt apparently has incorporated me into a paranoid delusional system. His "observing ego" is aware that there is no rational basis for idea but he feels it nonetheless. I queried whether it will be an impedement in his trusting my suggestions as his psychiatrist. He indicated not. I shared lengthy discussion I had had with Dr Perez about re-starting DEPakote. He agrees. Will need to decrease home dosage of LMT. Will start with low dose so as not to interfere markedly with ECT efficacy. He is unkempt, odd, intermittant in eye contact, with increased response latency. Mood remains labile, per pt. +AH yet denies intense CAH with coaxing of him to self harm while on unit, but still with fear of that happening if not here. 12/18/17 11:31 Pt is seen in room, where he was upright in bed, not sleeping mid morning. He is A and O x3. No evidence of delirium. He was less delayed in respose time today as well, and showed insight into the delusional material reported. Reports some new delusional material re his voices becoming the "treatment team " and starting to exert influence over his treatment course. He bemoans dramatic amnesia for last month or longer, but responded to reassurance that that is expected from ECT and his illness exacerbation itself. Tolerating med changes without C/O. Will increase CLoz today to 150 mg as we are holding off on ECT Sunday. Checking levels. This episode is proving quite refractory to med and acute ECT both, with the limiting factor of confusional states and pronounced STM effects from the confluence of both treatment modalities. I shared with him that two options are available to him: first is to reduce ECT frequency and maximize med dosing. Second, it to clear all meds temporarily whilst instituting further 3x/week ECT (with the theory that the ECT efficacy is being partly reduced by his remaining on AED meds and meds that increase cognitive impact, such as Li). We are to attempt the first option first with his consent, which was provided. 12/19/17 13:23 Li level .6, VPA 42, LMT level pnd. No SE with meds noted by patient. C/O of STM effect, most likely due primarily to ECT. SOme ongoing increased response latency/thought blocking. Cont. Med unchanged for now. ECT for Sunday. 12/20/17 09:00 Pt interviewed while eating breakfast. Appreciated Emailed alert from staff on 3N re his delayed presentation last evening (post Cloz dose but pre night meds) and strange, illogical statements made about "G FOrces" and "Quinonez Rays". He has limited recollection of event of last evening. This MAY speak to on going confusional states, c/w delirium due to "perfect storm" of acute ECT and his psychotropic meds. Will delay further acute ECT and concentrate on his med regimen for now given the confusion (which makes the it impossible to assess the level of his psychosis and mood symptoms). I will also hold off on increasing Cloz dose yet given its anticholinergic SEs, but will re check a Cloz level tomarrow AM 12/21/17 15:24 Pt interviewed in mid afternoon in his room, where he way lying in bed with blanket covering him, but not asleep, not reading or writing. He brought up that he is still feeling that he is being surveyed yet has some insight into the delusional nature of this belief. Mood is presently not very depressed, anxious or agitated. No ego syntonic desire to self harm and no recent CAH to do so. Some increase in response latency, but less so than it had been. Disheveled and unkempt, with some impaired relatedness. LMT level 3.4. CLOZ level pnd. No significant SEs described. May nonetheless wait on CLoz level to decide about how much more to titrate. Pt does wish to have an ECT treatment sunday. He feels safe to try AG with staff/family Objective: Vital Signs Temp Pulse Resp BP Pulse Ox 36.7 C 85 20 100/55 L 95 12/21/17 06:00 12/21/17 06:00 12/21/17 06:00 12/21/17 06:00 12/21/17 06:00 Laboratory Results 12/18/17 06:00 12/19/17 06:00 Laboratory Tests 12/04/17 12/04/17 12/19/17 06:30 06:30 06:00 Valproic Acid 42.1 L Lamotrigine 7.9 [place] 1.0 0.6 12/19/17 06:00 Valproic Acid Lamotrigine 3.4 [place] ICD10 Worksheet Patient Problems: Problems Problem Status Onset Schizoaffective disorder Acute Suicidal ideation Acute Acute psychosis Acute Forearm laceration involving tendon Acute Marijuana abuse Acute Self-inflicted injury Acute
[2017-12-21] MEDS: METHYLFOLATE 15 MG PO SCH (19:20)
[2017-12-21] MEDS: cloZAPine 100 MG TAB PO SCH (19:21)
[2017-12-21] MEDS: CHOLECALCIFEROL VIT D3 1,000 UNITS TAB PO SCH (21:34)
[2017-12-21] MEDS: LITHIUM CARBONATE ER 300 MG TAB PO SCH (21:34)
[2017-12-21] MEDS: lamoTRIgine 100 MG TAB PO SCH (21:34)
[2017-12-22] MEDS: DIVALPROEX ER 250 MG TAB PO SCH ×2 (08:45→21:04)
--- NOTE | 2017-12-22 17:10 | SOAPPROG ---
SOAP Progress Note Assessment/Plan: Assessment: Per Dr. Lopez's note: 12/21/17 15:24 Pt interviewed in mid afternoon in his room, where he way lying in bed with blanket covering him, but not asleep, not reading or writing. He brought up that he is still feeling that he is being surveyed yet has some insight into the delusional nature of this belief. Mood is presently not very depressed, anxious or agitated. No ego syntonic desire to self harm and no recent CAH to do so. Some increase in response latency, but less so than it had been. Disheveled and unkempt, with some impaired relatedness. LMT level 3.4. CLOZ level pnd. No significant SEs described. May nonetheless wait on CLoz level to decide about how much more to titrate. Pt does wish to have an ECT treatment sunday. He feels safe to try AG with staff/family PLAN: 12/22/17 17:04 1. Patient went off grounds with POC today. He said it was "good" to be outside and parents agreed the walk outdoors was "helpful." Patient seemed to have brighter affect and was more engaged with staff and peers upon his return. 2. Patient still has significant response latency which hasn't improved much over past couple of weeks. 3. Patient was not talking about any bizarre delusions which happened other days this week. 4. Clozaril and metabolite levels pending 5. Will wait for levels before titrating meds any further. 6. Patient still wants ECT on Sunday Subjective: Patient was walking in [place] with parents. He appeared to have more energy and presented with less psychomotor retardation than yesterday. His parents reported that the walk outdoors "helped." He also presented with brighter affect and more range of emotion, though still constricted. He still presents with cognitive slowing, whether from meds or psychosis is hard to tell. His parents say this is what happened the last time he was on Clozaril. He denies any CAH and no thoughts about harming himself or others. Objective: Vital Signs Temp Pulse Resp BP Pulse Ox 36.8 C 79 20 118/56 L 96 12/22/17 06:00 12/22/17 06:00 12/22/17 06:00 12/22/17 06:00 12/22/17 06:00 Laboratory Results 12/18/17 06:00 12/19/17 06:00 MSE: Affect: Brighter Mood: "OK, I guess" TP: Slightly more fluency, though still delayed TC: Denies CAH, no SI Insight/Judgment: Poor - Time Spent With Patient Time Spent With Patient: 15' - Pending Discharge Pending Discharge Within 24 Hours: No Pending Discharge Within 48 Hours: No ICD10 Worksheet Patient Problems: Problems Problem Status Onset Schizoaffective disorder Acute Suicidal ideation Acute Acute psychosis Acute Forearm laceration involving tendon Acute Marijuana abuse Acute Self-inflicted injury Acute
[2017-12-22] MEDS: cloZAPine 100 MG TAB PO SCH (17:33)
[2017-12-22] MEDS: CHOLECALCIFEROL VIT D3 1,000 UNITS TAB PO SCH (21:04)
[2017-12-22] MEDS: LITHIUM CARBONATE ER 300 MG TAB PO SCH (21:04)
[2017-12-22] MEDS: lamoTRIgine 100 MG TAB PO SCH (21:04)
[2017-12-22] MEDS: METHYLFOLATE 15 MG PO SCH (21:06)
[2017-12-23] MEDS: DIVALPROEX ER 250 MG TAB PO SCH (08:21)
--- NOTE | 2017-12-23 14:06 | ASMTCMCOM ---
CM Note CM Note Notes: Pt. reports feeling "alright". Pt. reports sleeping and eating well. Pt. reports no issues with his current medications. Pt. stated he did not have any ECT this week, and stated ECT is "having like....noticing more paranoia about the outside world". Pt. stated his paranoia is focused on himself and "essentaily people messing with me". Pt. denied SI, and HI. Pt. reports AVH, stating "My so-called visual hallucination sometimes they seem more just like thoughts". Pt. stated these AVH are "describing things...outdoors. Sorta like there's a popularity contest. Sometimes.... well every once in a while it's super cool". Pt. stated he is attending groups, and asked about when he will discharge. Pt. presents as calm, delayed in his responses, somewhat disorganized in his thoughts, and with no eye contact. Staff report pt. sleeping 8.5 hours and being medication compliant. Pt. is scheduled for ECT on Sunday at 12:30pm. Date Signed: 12/23/2017 02:05 PM Electronically Signed By:Indigo Donald
--- NOTE | 2017-12-23 16:11 | SOAPPROG ---
SOAP Progress Note Assessment/Plan: Assessment: Per Dr. Lopez's note: 12/21/17 15:24 Pt interviewed in mid afternoon in his room, where he way lying in bed with blanket covering him, but not asleep, not reading or writing. He brought up that he is still feeling that he is being surveyed yet has some insight into the delusional nature of this belief. Mood is presently not very depressed, anxious or agitated. No ego syntonic desire to self harm and no recent CAH to do so. Some increase in response latency, but less so than it had been. Disheveled and unkempt, with some impaired relatedness. LMT level 3.4. CLOZ level pnd. No significant SEs described. May nonetheless wait on CLoz level to decide about how much more to titrate. Pt does wish to have an ECT treatment sunday. He feels safe to try AG with staff/family PLAN: 12/22/17 17:04 1. Patient went off grounds with POC today. He said it was "good" to be outside and parents agreed the walk outdoors was "helpful." Patient seemed to have brighter affect and was more engaged with staff and peers upon his return. 2. Patient still has significant response latency which hasn't improved much over past couple of weeks. 3. Patient was not talking about any bizarre delusions which happened other days this week. 4. Clozaril and metabolite levels pending 5. Will wait for levels before titrating meds any further. 6. Patient still wants ECT on Sunday12/23/17 16:08 1. Patient continues to show brighter affect and more positive mood, which he attributes to going off grounds with parents this weekend. 2. Clozapine and Norclozapine levels pending from 12/20/17 3. No changes to meds 4. Patient agrees to ECT tomorrow Subjective: Patient has presented with brighter affect, smiling more often with increased fluency of speech the past couple of days. When MD talks to patient after he returns from walking in neighborhood around hospital with his parents, he is always in better mood with more cheerful affect. He admits that his off grounds excursions are what's made his mood better this weekend. Parents also remark on the improvement. His positive mood also correlates with decrease in auditory hallucinations and paranoid delusions. He is less worried about being surveilled and feeling unsafe in his room. He has some insight into the nature of his AH, claiming that sometimes they seem "just like my own thoughts." He says they are "negative," but not CAH to hurt himself. Objective: Vital Signs Temp Pulse Resp BP Pulse Ox 36.8 C 79 20 118/56 L 96 12/22/17 06:00 12/22/17 06:00 12/22/17 06:00 12/22/17 06:00 12/22/17 06:00 Laboratory Results 12/18/17 06:00 12/19/17 06:00 MSE: Affect: Euthymic Mood: "OK" TP: Linear TC: Denies SI/HI, no CAH Insight/ Judgment: Fair - Time Spent With Patient Time Spent With Patient: 15" - Pending Discharge Pending Discharge Within 24 Hours: No Pending Discharge Within 48 Hours: No ICD10 Worksheet Patient Problems: Problems Problem Status Onset Schizoaffective disorder Acute Suicidal ideation Acute Acute psychosis Acute Forearm laceration involving tendon Acute Marijuana abuse Acute Self-inflicted injury Acute
[2017-12-23] MEDS: cloZAPine 100 MG TAB PO SCH (18:21)
[2017-12-23] MEDS: METHYLFOLATE 15 MG PO SCH (21:06)
[2017-12-23] MEDS: CHOLECALCIFEROL VIT D3 1,000 UNITS TAB PO SCH (21:06)
[2017-12-24] MEDS ORDERED: THEOPHYLLINE ORAL SOLUTION 80 MG/15 ML UDCUP PO ONE ×3 (04:00→11:30)
[2017-12-24] MEDS ORDERED: ONDANSETRON DISINTEGRATING 4 MG TAB PO PRN ×2 (04:00→13:37)
[2017-12-24] MEDS ORDERED: NS 1,000 ML IV PRN (04:00)
[2017-12-24] MEDS ORDERED: CITRIC ACID/SODIUM CITRATE 30 ML UDCUP PO PRN (04:00)
[2017-12-24] MEDS ORDERED: ONDANSETRON 4 MG/2 ML VIAL ONE (06:07)
[2017-12-24] MEDS ORDERED: MIDAZOLAM 2 MG/2 ML VIAL ONE (06:07)
[2017-12-24] MEDS ORDERED: fentaNYL 100 MCG/2 ML INJ ONE (06:07)
[2017-12-24] MEDS ORDERED: ROCURONIUM 50 MG/5 ML VIAL ONE (06:08)
[2017-12-24] MEDS ORDERED: ETOMIDATE 20 MG/10 ML VIAL ONE (06:08)
[2017-12-24] MEDS ORDERED: GLYCOPYRROLATE 0.2 MG/1 ML VIAL ONE (06:08)
[2017-12-24] MEDS ORDERED: SUCCINYLCHOLINE CHLORIDE 200 MG/10 ML VIAL ONE (06:08)
[2017-12-24] MEDS ORDERED: ONDANSETRON DISINTEGRATING 4 MG TAB ONE (12:55)
[2017-12-24] MEDS ORDERED: CITRIC ACID/SODIUM CITRATE 30 ML UDCUP ONE (12:55)
[2017-12-24] MEDS ORDERED: DIVALPROEX ER 500 MG TAB PO ONE ×2 (13:27)
--- NOTE | 2017-12-24 13:36 | PDECTPN ---
ECT Progress Note Patient Problems: Problems Problem Status Onset Code Schizoaffective disorder Acute F25.9 Suicidal ideation Acute R45.851 Acute psychosis Acute F23 Forearm laceration involving tendon Acute S51.819A, S56.929A Marijuana abuse Acute F12.10 Self-inflicted injury Acute Z72.89 Date: 12/24/17 ECT provider: Gomez Lopez Anesthesia: Justin Eubanks Stimulus dose (%): 100 Pulse width: 0.5 ECT EMG (sec): 29 ECT EEG (sec): 49 ECT treatment type: bilateral QIDS-SR Total Score: 4 QIDS-SR Question #12 Score: 0 MMSE Total Score (Max = 21): 19 Next ECT date: 12/31/17 Next ECT time: 10:00 O/P psychiatrist follow up with DrReva: Jaron Perez O/P psychiatrist follow up: phone, voice message Home medications: Medication Instructions Recorded lamoTRIgine [LamICTAL 100 MG (*)] 250 mg PO HS 10/07/16 Vraylar 4.5 mg PO HS 08/29/17 Cholecalciferol Vit D3 [Vitamin D3 1,000 units PO HS 11/21/17 (*)] Gabapentin [Neurontin 300 MG (*)] 300 mg PO TID 11/21/17 Ibuprofen [Motrin (*)] 400 mg PO DAILY PRN 11/21/17 L-Methylfolate 15m Cap 15 mg PO HS 11/21/17 LORazepam [Ativan (*)] 1 - 2 mg PO DAILY PRN 11/21/17 [place] Carbonate ER [Lithobid 300 1,500 mg PO HS 11/21/17 mg (*)] lamoTRIgine [LamICTAL] 25 mg PO HS 11/21/17 Current treatment plan: acute phase Treatment plan frequency: 1 time per week ECT narrative: Reviewed inpatient chart. Inteviewed pt. He still c/o of paranioa and referential ideas, some AH and mood that is marked by some expansive, grandiose themes. No overt signs of veronica or depression however and QIDS was 4. Intense CAH to hurt self is abated, but pt somewhat guarded when answering this. No sig SE with Cloz at 100 mg. Will titrate to 150 mg and check levels soon thereafter. Will discuss dispo options with pt and parents tomorrow. Cont acute B ECT as well. WBC wnl. VS stable without tachycardia or hyperpyrexia 12/10/17 reviewed notes from weekend. Delirium appears fully resolved. Pt scores MMSE 21/21, and his A and O x3. Has, as expected, unclear recollection of events of last week. Still with some mood lability and AH, and paranoia, most prominent at night. Will change cloz to dinner time to address this. Will re attempt ECT, in the absence of Li and will lower dose CLoz, with hopes of getting benefit without confusional state. WIll also hold any AED med the night before each tx (gabapentin and LMT). Indeed, will lower LMT for duration of acute ECT to ensure maximal seizure activity. After acute ECT is completed, will re-increase LMT, restart Li at prior dose and encourage further titration of Cloz given its low serum level 12/12 Pt remains impov, PMR, increased response latency.Still endorses hs paranoia and AH, yet not as intense or negative as it had been. Will proceed with acute ECT through Sunday, then consider re-start Li and increase Cloz with mECT done at a freq (ie, weekly) rate. Or, it may be necessary to proceed into next week with further acute ECT and hold off on med changes until completed. 12/14 Pt still quite paranoid, with notable response latency. Guarded re notion of engineering technical writer being incorporated into his delusional system. No SE noted with first depakote dose. Plan to do ECT into next week, and cont meds--including depakote- -holding doses of any AED the night prior to ECT 12/17 Received vm from mother indicating some delirium noted; pt remains with some paranoid over valued ideas and includes this engineering technical writer in a delusional system involving surveying him. Will hold off on ECT sun and do 2x/week this week, allowing for meds to be Rx'ed with less interruption as well. Will decrease Li to 900 mg, as Depakote on board at 1000 mg (will check level on Sun). LMT to be kept at 100 mg, down from 275, due to interaction with VPA. Cloz will remains at 100 mg, but has room for improvement in terms of blood level once ECT is being done at 1x/week or less frequently (increased chance for cognitive impact with its anticholinergic SE when coupled with acute ECT). 12/[address] Christy. Pt had better weekend. Mood a bit "up" pertaining to hypomanic symptoms, and still having evening time paranoia. But, clearer in terms of cognition with no agititation, SI, or CAH coaxing him to harm self. Will increase CLoz ahead of blood level to 200 mg, as he is tolerating it well and will likely need such an increase given very low level at 100 mg. Will also increase Depakote to 1250 given level of 42 on 1000 mg.. WIll discuss discharge possiblity for this week if symptoms remains overall in upward trend. Plan to keep ECT to weekly for now.
[2017-12-24] MEDS ORDERED: cloZAPine 100 MG TAB PO SCH (13:37)
[2017-12-24] MEDS ORDERED: HYDROCODONE/APAP 5/325 TAB PO PRN (13:37)
[2017-12-24] MEDS ORDERED: PROMETHAZINE HCL 25 MG TAB PO PRN (13:37)
[2017-12-24] MEDS ORDERED: NALOXONE HCL 0.4 MG/ML INJ IVP PRN (13:37)
--- NOTE | 2017-12-24 14:23 | PDECTIHP ---
ECT Interval H&P Patient Problems: Problems Problem Status Onset Code Schizoaffective disorder Acute F25.9 Suicidal ideation Acute R45.851 Acute psychosis Acute F23 Forearm laceration involving tendon Acute S51.819A, S56.929A Marijuana abuse Acute F12.10 Self-inflicted injury Acute Z72.89 Chief complaint: Patient wishes to continue ECT and requires a medical status update to do so. General health: In collaboration with Anesthesiology, potential benefits of treatment outweigh risk. History of present illness: no changes noted Focused physical exam including relevant body area/organ sys: alert & oriented, moves all extremities, no progressively increasing headaches, no ataxia, no evidence of delirium, no focal sensory deficits, no focal weakness, speech normal Heart and lungs: deferred, SEE anesthesiologist assessment
[2017-12-24] MEDS: METHYLFOLATE 15 MG PO SCH (20:11)
[2017-12-24] MEDS: LITHIUM CARBONATE ER 300 MG TAB PO SCH (20:13)
[2017-12-24] MEDS: CHOLECALCIFEROL VIT D3 1,000 UNITS TAB PO SCH (20:13)
[2017-12-24] MEDS: lamoTRIgine 100 MG TAB PO SCH (20:13)
[2017-12-24] MEDS: DIVALPROEX ER 250 MG TAB PO SCH (22:28)
--- NOTE | 2017-12-25 12:29 | ASMTCMCOM ---
CM Note CM Note Notes: CC remains on the unit eating breakfast during our quick interaction. Client denies any current feeling of anxiety, S/I-H/I and AVD; however, rates his current feelings of depression/saddness a 4/10, noting; "I am not feeling very good today because of the constant people on the unit." Client suggest receiving 8+ hours of sleep last night, while taking AG over weekend with MOC. Clt remains interactive on the unit, affect is still delayed when asked questions, however, remains brighter talkative engaged while displaying a pleasant demeanor. Date Signed: 12/25/2017 12:28 PM Electronically Signed By:Sonido Perez
[2017-12-25 12:43] LABS: PLATELET COUNT 185 10^3/uL (150-400)
[2017-12-25] MEDS ORDERED: cloZAPine 100 MG TAB PO SCH (15:45)
--- NOTE | 2017-12-25 15:50 | SOAPPROG ---
SOAP Progress Note Assessment/Plan: Assessment: Schizoaffective d/o Bipolar Type Plan: Pt engaged in Art therapy and in milieu, which is improvement for him. However, he endorses on going AH and grandiose delusional beliefs. Still also occasional CAH to hurt self but he feels more empowered to NOT act on them. Tolerating CLoz with only mild sedation. WIll check levels am reflective of dose of 150 mg. Will cont acute B ect. Pt does not feel as if ECT increases AH; he indicated that that was an infrequent association he made. On MSE, he is pleasant and cooperative, but has marked response latency, ( almost as if responding to internal stimuli vs thought blocking). He is mildly disheveled. 12/04/17 12:15 12/04/17 12:28 12/05/17 18:00 Pt skipped ECT today, initially due to report that he had eaten a muffin at 9am. Pt insisted he did but cleaning staff supervisor had good evidence to contrary. On further eval, he appears to cleaning staff supervisor to be more confused and disoriented. I inteviewed him later in day and confirmed a notable change with some disorientation, disorganized speech and poor STM that seemed more c/w an acute confusional state rather than symptomatic of his mood/psychotic disorder. He has significant potential contributants to this including 1) acute ECT 2) Li with level of 1.0 with use during acute ECT and 3) recent addition and titration of strongly anticholinergic Clozaril. Will hold doses of [place], and reduce Cloz back to 100 mg (checking level in AM ), May need to hold ECT sunday if confusion continues. He is not agitated nor expressing any drive to self harm, either from CAH or otherwise. Will keep him on precautions however, given change in MS. Further, he is afebrile, not rigid, with stable VS that are WNL 12/05/17 18:05 12/05/17 18:07 12/06/17 16:30 Pt is a bit less confused and less disoriented today (A O X3) Yet still some increased thought blocking, word finding, increased response latency and inability to answer more open, less structured questions. Describes mood as labile ranging intraday from overly happy/euphoric to depressed and anxious. Does have paranoid delusions that are more prominent at hs (?c/w delirium, atop his baseline psychosis). Unable to answer Q re status of CAH becoming almost momentarily fixed in his gaze downward and ultimately beginning, many seconds later, to respond in a non sensical/disorganized fashion. Will cont to hold Li one more night, then maybe restart at lower dose. Will hold ECT tomorrow. Cloz back down to 100mg with levels pnd. Perfects storm of acute ECT--with its cognitive SEs and increased permeability of BBB-coupled with delerogenic meds with greater CERTIFICATION ENGINEER penetration (Li and Cloz), contributed to delirium. No discharge tomorrow given this clinical event. 12/07/17 14:21 Met with patient and parents today. He is much improved in terms of delirium as of today. Discussed virtue of continueing acute ECT along with Cloz into next week but that we will hold Li for duration of acute tx. Pt still expressing some concerns for own safety if [place]. Pt feeling "Up " during visit and some inappropriate laughter was noted. He was not otherwise engaged in visit, and most of the discussion was btw parents and internal communications writer 12/11/17 13:35 Pt interviewed today, one day post last ECT. He is A O times 3. Still with increased response latency, especially when asked open ended question pertaining to his mood or psychotic symptoms. Less so for emotionally neutral topics or more structured questions. Presently, feels that CAH are in the background by states that "the plot goes that they [the CAH] will come back in the real world" describing his concern that he is still quite fragile and susceptible to increased psychotic symptoms under the stressors of beiing out of hospital. Moods is likewise presently not overtly manic or depressed. He has no ego-syntonic desire to kill himself at present. In retrospecting over last 24 hours--limited in his ability to do so by virtue of STM impact of ECT/recent delirium--he feels that he had had some mood lability with arguably manic bouts involving graniosity and expansive mood. Plan is to do at least two more acute ECTs inpt, while continueing to hold Li and keep Cloz at 100. Post acute ECT, Li to be restarted, and Cloz to be titrated higher given low level. 12/13/17 15:58 Pt apparently has incorporated me into a paranoid delusional system. His "observing ego" is aware that there is no rational basis for idea but he feels it nonetheless. I queried whether it will be an impedement in his trusting my suggestions as his psychiatrist. He indicated not. I shared lengthy discussion I had had with Dr Perez about re-starting DEPakote. He agrees. Will need to decrease home dosage of LMT. Will start with low dose so as not to interfere markedly with ECT efficacy. He is unkempt, odd, intermittant in eye contact, with increased response latency. Mood remains labile, per pt. +AH yet denies intense CAH with coaxing of him to self harm while on unit, but still with fear of that happening if not here. 12/18/17 11:31 Pt is seen in room, where he was upright in bed, not sleeping mid morning. He is A and O x3. No evidence of delirium. He was less delayed in respose time today as well, and showed insight into the delusional material reported. Reports some new delusional material re his voices becoming the "treatment team " and starting to exert influence over his treatment course. He bemoans dramatic amnesia for last month or longer, but responded to reassurance that that is expected from ECT and his illness exacerbation itself. Tolerating med changes without C/O. Will increase CLoz today to 150 mg as we are holding off on ECT Sunday. Checking levels. This episode is proving quite refractory to med and acute ECT both, with the limiting factor of confusional states and pronounced STM effects from the confluence of both treatment modalities. I shared with him that two options are available to him: first is to reduce ECT frequency and maximize med dosing. Second, it to clear all meds temporarily whilst instituting further 3x/week ECT (with the theory that the ECT efficacy is being partly reduced by his remaining on AED meds and meds that increase cognitive impact, such as Li). We are to attempt the first option first with his consent, which was provided. 12/19/17 13:23 Li level .6, VPA 42, LMT level pnd. No SE with meds noted by patient. C/O of STM effect, most likely due primarily to ECT. SOme ongoing increased response latency/thought blocking. Cont. Med unchanged for now. ECT for Sunday. 12/20/17 09:00 Pt interviewed while eating breakfast. Appreciated Emailed alert from staff on 3N re his delayed presentation last evening (post Cloz dose but pre night meds) and strange, illogical statements made about "G FOrces" and "Quinonez Rays". He has limited recollection of event of last evening. This MAY speak to on going confusional states, c/w delirium due to "perfect storm" of acute ECT and his psychotropic meds. Will delay further acute ECT and concentrate on his med regimen for now given the confusion (which makes the it impossible to assess the level of his psychosis and mood symptoms). I will also hold off on increasing Cloz dose yet given its anticholinergic SEs, but will re check a Cloz level tomarrow AM 12/21/17 15:24 Pt interviewed in mid afternoon in his room, where he way lying in bed with blanket covering him, but not asleep, not reading or writing. He brought up that he is still feeling that he is being surveyed yet has some insight into the delusional nature of this belief. Mood is presently not very depressed, anxious or agitated. No ego syntonic desire to self harm and no recent CAH to do so. Some increase in response latency, but less so than it had been. Disheveled and unkempt, with some impaired relatedness. LMT level 3.4. CLOZ level pnd. No significant SEs described. May nonetheless wait on CLoz level to decide about how much more to titrate. Pt does wish to have an ECT treatment sunday. He feels safe to try AG with staff/family 12/25/17 15:46 Pt remains with blunted affect, slowed response time, PMR and on going paranoia and increased AH lilibeth in evenings. He sleeps with light on for that reason. No significant SE with recent increase in CLoz and Depakote. Cloz level still quite low (187) reflective of 150 mg. Had increased to 200 yesterday, but will push to 250 tonight given lack of severe sedation or orthostatic symptoms. VSS. WBC/ANC wnl. No CAH thankfully. Pt to let Parents help him assess his readiness to try discharge. At this moment, pt endorses a great deal of anxiety about leaving due to on going psychosis even in absence of CAH for him to harm self. May use opportunity of his continued stay to push the Cloz dose more aggressively than one might do as outpt Objective: Vital Signs Temp Pulse Resp BP Pulse Ox 36.3 C 89 14 94/51 L 95 12/25/17 06:00 12/25/17 06:00 12/25/17 06:00 12/25/17 06:00 12/25/17 06:00 Laboratory Results 12/25/17 06:30 12/19/17 06:00 12/24/17 12/25/17 12/26/17 05:59 05:59 05:59 Intake Total 750 Balance 750 Laboratory Tests 12/21/17 06:05 Clozapine 112 Clozapine &Norclozapine 147 Norclozapine 35 ICD10 Worksheet Patient Problems: Problems Problem Status Onset Schizoaffective disorder Acute Suicidal ideation Acute Acute psychosis Acute Forearm laceration involving tendon Acute Marijuana abuse Acute Self-inflicted injury Acute
[2017-12-25] MEDS: METHYLFOLATE 15 MG PO SCH (18:27)
[2017-12-25] MEDS: DIVALPROEX ER 250 MG TAB PO SCH (19:02)
[2017-12-25] MEDS: LITHIUM CARBONATE ER 300 MG TAB PO SCH (19:02)
[2017-12-25] MEDS: CHOLECALCIFEROL VIT D3 1,000 UNITS TAB PO SCH (19:03)
[2017-12-25] MEDS: lamoTRIgine 100 MG TAB PO SCH (19:03)
[2017-12-26] MEDS ORDERED: cloZAPine 100 MG TAB PO SCH (13:43)
--- NOTE | 2017-12-26 13:49 | SOAPPROG ---
SOAP Progress Note Assessment/Plan: Assessment: Schizoaffective d/o Bipolar Type Plan: Pt engaged in Art therapy and in milieu, which is improvement for him. However, he endorses on going AH and grandiose delusional beliefs. Still also occasional CAH to hurt self but he feels more empowered to NOT act on them. Tolerating CLoz with only mild sedation. WIll check levels am reflective of dose of 150 mg. Will cont acute B ect. Pt does not feel as if ECT increases AH; he indicated that that was an infrequent association he made. On MSE, he is pleasant and cooperative, but has marked response latency, ( almost as if responding to internal stimuli vs thought blocking). He is mildly disheveled. 12/04/17 12:15 12/04/17 12:28 12/05/17 18:00 Pt skipped ECT today, initially due to report that he had eaten a muffin at 9am. Pt insisted he did but community health nurse staff had good evidence to contrary. On further eval, he appears to community health nurse staff to be more confused and disoriented. I inteviewed him later in day and confirmed a notable change with some disorientation, disorganized speech and poor STM that seemed more c/w an acute confusional state rather than symptomatic of his mood/psychotic disorder. He has significant potential contributants to this including 1) acute ECT 2) Li with level of 1.0 with use during acute ECT and 3) recent addition and titration of strongly anticholinergic Clozaril. Will hold doses of [place], and reduce Cloz back to 100 mg (checking level in AM ), May need to hold ECT sunday if confusion continues. He is not agitated nor expressing any drive to self harm, either from CAH or otherwise. Will keep him on precautions however, given change in MS. Further, he is afebrile, not rigid, with stable VS that are WNL 12/05/17 18:05 12/05/17 18:07 12/06/17 16:30 Pt is a bit less confused and less disoriented today (A O X3) Yet still some increased thought blocking, word finding, increased response latency and inability to answer more open, less structured questions. Describes mood as labile ranging intraday from overly happy/euphoric to depressed and anxious. Does have paranoid delusions that are more prominent at hs (?c/w delirium, atop his baseline psychosis). Unable to answer Q re status of CAH becoming almost momentarily fixed in his gaze downward and ultimately beginning, many seconds later, to respond in a non sensical/disorganized fashion. Will cont to hold Li one more night, then maybe restart at lower dose. Will hold ECT tomorrow. Cloz back down to 100mg with levels pnd. Perfects storm of acute ECT--with its cognitive SEs and increased permeability of BBB-coupled with delerogenic meds with greater GARMENT CUTTER penetration (Li and Cloz), contributed to delirium. No discharge tomorrow given this clinical event. 12/07/17 14:21 Met with patient and parents today. He is much improved in terms of delirium as of today. Discussed virtue of continueing acute ECT along with Cloz into next week but that we will hold Li for duration of acute tx. Pt still expressing some concerns for own safety if [place]. Pt feeling "Up " during visit and some inappropriate laughter was noted. He was not otherwise engaged in visit, and most of the discussion was btw parents and caption writer 12/11/17 13:35 Pt interviewed today, one day post last ECT. He is A O times 3. Still with increased response latency, especially when asked open ended question pertaining to his mood or psychotic symptoms. Less so for emotionally neutral topics or more structured questions. Presently, feels that CAH are in the background by states that "the plot goes that they [the CAH] will come back in the real world" describing his concern that he is still quite fragile and susceptible to increased psychotic symptoms under the stressors of beiing out of hospital. Moods is likewise presently not overtly manic or depressed. He has no ego-syntonic desire to kill himself at present. In retrospecting over last 24 hours--limited in his ability to do so by virtue of STM impact of ECT/recent delirium--he feels that he had had some mood lability with arguably manic bouts involving graniosity and expansive mood. Plan is to do at least two more acute ECTs inpt, while continueing to hold Li and keep Cloz at 100. Post acute ECT, Li to be restarted, and Cloz to be titrated higher given low level. 12/13/17 15:58 Pt apparently has incorporated me into a paranoid delusional system. His "observing ego" is aware that there is no rational basis for idea but he feels it nonetheless. I queried whether it will be an impedement in his trusting my suggestions as his psychiatrist. He indicated not. I shared lengthy discussion I had had with Dr Perez about re-starting DEPakote. He agrees. Will need to decrease home dosage of LMT. Will start with low dose so as not to interfere markedly with ECT efficacy. He is unkempt, odd, intermittant in eye contact, with increased response latency. Mood remains labile, per pt. +AH yet denies intense CAH with coaxing of him to self harm while on unit, but still with fear of that happening if not here. 12/18/17 11:31 Pt is seen in room, where he was upright in bed, not sleeping mid morning. He is A and O x3. No evidence of delirium. He was less delayed in respose time today as well, and showed insight into the delusional material reported. Reports some new delusional material re his voices becoming the "treatment team " and starting to exert influence over his treatment course. He bemoans dramatic amnesia for last month or longer, but responded to reassurance that that is expected from ECT and his illness exacerbation itself. Tolerating med changes without C/O. Will increase CLoz today to 150 mg as we are holding off on ECT Sunday. Checking levels. This episode is proving quite refractory to med and acute ECT both, with the limiting factor of confusional states and pronounced STM effects from the confluence of both treatment modalities. I shared with him that two options are available to him: first is to reduce ECT frequency and maximize med dosing. Second, it to clear all meds temporarily whilst instituting further 3x/week ECT (with the theory that the ECT efficacy is being partly reduced by his remaining on AED meds and meds that increase cognitive impact, such as Li). We are to attempt the first option first with his consent, which was provided. 12/19/17 13:23 Li level .6, VPA 42, LMT level pnd. No SE with meds noted by patient. C/O of STM effect, most likely due primarily to ECT. SOme ongoing increased response latency/thought blocking. Cont. Med unchanged for now. ECT for Sunday. 12/20/17 09:00 Pt interviewed while eating breakfast. Appreciated Emailed alert from staff on 3N re his delayed presentation last evening (post Cloz dose but pre night meds) and strange, illogical statements made about "G FOrces" and "Quinonez Rays". He has limited recollection of event of last evening. This MAY speak to on going confusional states, c/w delirium due to "perfect storm" of acute ECT and his psychotropic meds. Will delay further acute ECT and concentrate on his med regimen for now given the confusion (which makes the it impossible to assess the level of his psychosis and mood symptoms). I will also hold off on increasing Cloz dose yet given its anticholinergic SEs, but will re check a Cloz level tomarrow AM 12/21/17 15:24 Pt interviewed in mid afternoon in his room, where he way lying in bed with blanket covering him, but not asleep, not reading or writing. He brought up that he is still feeling that he is being surveyed yet has some insight into the delusional nature of this belief. Mood is presently not very depressed, anxious or agitated. No ego syntonic desire to self harm and no recent CAH to do so. Some increase in response latency, but less so than it had been. Disheveled and unkempt, with some impaired relatedness. LMT level 3.4. CLOZ level pnd. No significant SEs described. May nonetheless wait on CLoz level to decide about how much more to titrate. Pt does wish to have an ECT treatment sunday. He feels safe to try AG with staff/family 12/25/17 15:46 Pt remains with blunted affect, slowed response time, PMR and on going paranoia and increased AH lilibeth in evenings. He sleeps with light on for that reason. No significant SE with recent increase in CLoz and Depakote. Cloz level still quite low (187) reflective of 150 mg. Had increased to 200 yesterday, but will push to 250 tonight given lack of severe sedation or orthostatic symptoms. VSS. WBC/ANC wnl. No CAH thankfully. Pt to let Parents help him assess his readiness to try discharge. At this moment, pt endorses a great deal of anxiety about leaving due to on going psychosis even in absence of CAH for him to harm self. May use opportunity of his continued stay to push the Cloz dose more aggressively than one might do as outpt 12/26/17 13:43 Pt remains disheveled, with pronounced response latency (admitting to responding to something described vaguely but clearly meaning AH), with PMR, on going paranoid delusions most prominent at night and fear of discharge as "they are out THERE" referring to some entity or "people" who are aiming to harm him in some way and cant quite "get in here" referring to unit. Plan is to titrate CLoz, which he is tolerating without profound sedation or orthostatis, hyperthermia, ANC decreases or sialorrhe. WIll increase dose to 300 mg tonight and re check level in two days.. Keep ECT weekly but may choose to resume acute ECT and terminate all meds except Cloz if med regimen, with only weekly ECT, is falling short of aiding his psychosis and AH. Objective: Vital Signs Temp Pulse Resp BP Pulse Ox 36.3 C 89 14 94/51 L 95 12/25/17 06:00 12/25/17 06:00 12/25/17 06:00 12/25/17 06:00 12/25/17 06:00 Laboratory Results 12/25/17 06:30 12/19/17 06:00 12/25/17 12/26/17 12/27/17 05:59 05:59 05:59 Intake Total 750 Balance 750 ICD10 Worksheet Patient Problems: Problems Problem Status Onset Schizoaffective disorder Acute Suicidal ideation Acute Acute psychosis Acute Forearm laceration involving tendon Acute Marijuana abuse Acute Self-inflicted injury Acute
[2017-12-26] MEDS: DIVALPROEX ER 250 MG TAB PO SCH (21:31)
[2017-12-26] MEDS: CHOLECALCIFEROL VIT D3 1,000 UNITS TAB PO SCH (21:31)
[2017-12-26] MEDS: METHYLFOLATE 15 MG PO SCH (21:31)
[2017-12-26] MEDS: lamoTRIgine 100 MG TAB PO SCH (21:32)
[2017-12-26] MEDS: LITHIUM CARBONATE ER 300 MG TAB PO SCH (21:32)
[2017-12-27] MEDS ORDERED: cloZAPine 100 MG TAB PO SCH (13:22)
--- NOTE | 2017-12-27 13:27 | SOAPPROG ---
SOAP Progress Note Assessment/Plan: Assessment: Schizoaffective d/o Bipolar Type Plan: Pt engaged in Art therapy and in milieu, which is improvement for him. However, he endorses on going AH and grandiose delusional beliefs. Still also occasional CAH to hurt self but he feels more empowered to NOT act on them. Tolerating CLoz with only mild sedation. WIll check levels am reflective of dose of 150 mg. Will cont acute B ect. Pt does not feel as if ECT increases AH; he indicated that that was an infrequent association he made. On MSE, he is pleasant and cooperative, but has marked response latency, ( almost as if responding to internal stimuli vs thought blocking). He is mildly disheveled. 12/04/17 12:15 12/04/17 12:28 12/05/17 18:00 Pt skipped ECT today, initially due to report that he had eaten a muffin at 9am. Pt insisted he did but staff development coordinator had good evidence to contrary. On further eval, he appears to staff development coordinator to be more confused and disoriented. I inteviewed him later in day and confirmed a notable change with some disorientation, disorganized speech and poor STM that seemed more c/w an acute confusional state rather than symptomatic of his mood/psychotic disorder. He has significant potential contributants to this including 1) acute ECT 2) Li with level of 1.0 with use during acute ECT and 3) recent addition and titration of strongly anticholinergic Clozaril. Will hold doses of [place], and reduce Cloz back to 100 mg (checking level in AM ), May need to hold ECT sunday if confusion continues. He is not agitated nor expressing any drive to self harm, either from CAH or otherwise. Will keep him on precautions however, given change in MS. Further, he is afebrile, not rigid, with stable VS that are WNL 12/05/17 18:05 12/05/17 18:07 12/06/17 16:30 Pt is a bit less confused and less disoriented today (A O X3) Yet still some increased thought blocking, word finding, increased response latency and inability to answer more open, less structured questions. Describes mood as labile ranging intraday from overly happy/euphoric to depressed and anxious. Does have paranoid delusions that are more prominent at hs (?c/w delirium, atop his baseline psychosis). Unable to answer Q re status of CAH becoming almost momentarily fixed in his gaze downward and ultimately beginning, many seconds later, to respond in a non sensical/disorganized fashion. Will cont to hold Li one more night, then maybe restart at lower dose. Will hold ECT tomorrow. Cloz back down to 100mg with levels pnd. Perfects storm of acute ECT--with its cognitive SEs and increased permeability of BBB-coupled with delerogenic meds with greater BENCH MECHANIC penetration (Li and Cloz), contributed to delirium. No discharge tomorrow given this clinical event. 12/07/17 14:21 Met with patient and parents today. He is much improved in terms of delirium as of today. Discussed virtue of continueing acute ECT along with Cloz into next week but that we will hold Li for duration of acute tx. Pt still expressing some concerns for own safety if out of the [place]. Pt feeling "Up " during visit and some inappropriate laughter was noted. He was not otherwise engaged in visit, and most of the discussion was btw parents and principal technical writer 12/11/17 13:35 Pt interviewed today, one day post last ECT. He is A O times 3. Still with increased response latency, especially when asked open ended question pertaining to his mood or psychotic symptoms. Less so for emotionally neutral topics or more structured questions. Presently, feels that CAH are in the background by states that "the plot goes that they [the CAH] will come back in the real world" describing his concern that he is still quite fragile and susceptible to increased psychotic symptoms under the stressors of beiing out of hospital. Moods is likewise presently not overtly manic or depressed. He has no ego-syntonic desire to kill himself at present. In retrospecting over last 24 hours--limited in his ability to do so by virtue of STM impact of ECT/recent delirium--he feels that he had had some mood lability with arguably manic bouts involving graniosity and expansive mood. Plan is to do at least two more acute ECTs inpt, while continueing to hold Li and keep Cloz at 100. Post acute ECT, Li to be restarted, and Cloz to be titrated higher given low level. 12/13/17 15:58 Pt apparently has incorporated me into a paranoid delusional system. His "observing ego" is aware that there is no rational basis for idea but he feels it nonetheless. I queried whether it will be an impedement in his trusting my suggestions as his psychiatrist. He indicated not. I shared lengthy discussion I had had with Dr Perez about re-starting DEPakote. He agrees. Will need to decrease home dosage of LMT. Will start with low dose so as not to interfere markedly with ECT efficacy. He is unkempt, odd, intermittant in eye contact, with increased response latency. Mood remains labile, per pt. +AH yet denies intense CAH with coaxing of him to self harm while on unit, but still with fear of that happening if not here. 12/18/17 11:31 Pt is seen in room, where he was upright in bed, not sleeping mid morning. He is A and O x3. No evidence of delirium. He was less delayed in respose time today as well, and showed insight into the delusional material reported. Reports some new delusional material re his voices becoming the "treatment team " and starting to exert influence over his treatment course. He bemoans dramatic amnesia for last month or longer, but responded to reassurance that that is expected from ECT and his illness exacerbation itself. Tolerating med changes without C/O. Will increase CLoz today to 150 mg as we are holding off on ECT Sunday. Checking levels. This episode is proving quite refractory to med and acute ECT both, with the limiting factor of confusional states and pronounced STM effects from the confluence of both treatment modalities. I shared with him that two options are available to him: first is to reduce ECT frequency and maximize med dosing. Second, it to clear all meds temporarily whilst instituting further 3x/week ECT (with the theory that the ECT efficacy is being partly reduced by his remaining on AED meds and meds that increase cognitive impact, such as Li). We are to attempt the first option first with his consent, which was provided. 12/19/17 13:23 Li level .6, VPA 42, LMT level pnd. No SE with meds noted by patient. C/O of STM effect, most likely due primarily to ECT. SOme ongoing increased response latency/thought blocking. Cont. Med unchanged for now. ECT for Sunday. 12/20/17 09:00 Pt interviewed while eating breakfast. Appreciated Emailed alert from staff on 3N re his delayed presentation last evening (post Cloz dose but pre night meds) and strange, illogical statements made about "G FOrces" and "Quinonez Rays". He has limited recollection of event of last evening. This MAY speak to on going confusional states, c/w delirium due to "perfect storm" of acute ECT and his psychotropic meds. Will delay further acute ECT and concentrate on his med regimen for now given the confusion (which makes the it impossible to assess the level of his psychosis and mood symptoms). I will also hold off on increasing Cloz dose yet given its anticholinergic SEs, but will re check a Cloz level tomarrow AM 12/21/17 15:24 Pt interviewed in mid afternoon in his room, where he way lying in bed with blanket covering him, but not asleep, not reading or writing. He brought up that he is still feeling that he is being surveyed yet has some insight into the delusional nature of this belief. Mood is presently not very depressed, anxious or agitated. No ego syntonic desire to self harm and no recent CAH to do so. Some increase in response latency, but less so than it had been. Disheveled and unkempt, with some impaired relatedness. LMT level 3.4. CLOZ level pnd. No significant SEs described. May nonetheless wait on CLoz level to decide about how much more to titrate. Pt does wish to have an ECT treatment sunday. He feels safe to try AG with staff/family 12/25/17 15:46 Pt remains with blunted affect, slowed response time, PMR and on going paranoia and increased AH lilibeth in evenings. He sleeps with light on for that reason. No significant SE with recent increase in CLoz and Depakote. Cloz level still quite low (187) reflective of 150 mg. Had increased to 200 yesterday, but will push to 250 tonight given lack of severe sedation or orthostatic symptoms. VSS. WBC/ANC wnl. No CAH thankfully. Pt to let Parents help him assess his readiness to try discharge. At this moment, pt endorses a great deal of anxiety about leaving due to on going psychosis even in absence of CAH for him to harm self. May use opportunity of his continued stay to push the Cloz dose more aggressively than one might do as outpt 12/26/17 13:43 Pt remains disheveled, with pronounced response latency (admitting to responding to something described vaguely but clearly meaning AH), with PMR, on going paranoid delusions most prominent at night and fear of discharge as "they are out THERE" referring to some entity or "people" who are aiming to harm him in some way and cant quite "get in here" referring to unit. Plan is to titrate CLoz, which he is tolerating without profound sedation or orthostatis, hyperthermia, ANC decreases or sialorrhe. WIll increase dose to 300 mg tonight and re check level in two days.. Keep ECT weekly but may choose to resume acute ECT and terminate all meds except Cloz if med regimen, with only weekly ECT, is falling short of aiding his psychosis and AH. 12/27/17 13:23 Pt reported no significant SE with clozaril, but after review of notes it appears as if he had a post CLoz dose period of tachycardia, drooling and disorientation and gait instability. This indicates that we need to halt the titration of that med, and indeed I will re-decrease it back to 250 mg and check a level. He was A and O x 3this am, and reports no nocturnal drooling. VSS this am, with pulse high for him but below 100 (it reached 130 last night). Pt still experiencing hs paranoia and AH. I might also change the CLoz dosing back to qhs rather than q dinner, as it has not helped the psychosis he seems have in evening but increased his SEs during a period of time when he is not yet ready to go to bed. Objective: Vital Signs Temp Pulse Resp BP Pulse Ox 36.8 C 99 20 121/72 H 96 12/27/17 06:00 12/27/17 06:00 12/27/17 06:00 12/27/17 06:00 12/27/17 06:00 Laboratory Results 12/25/17 06:30 12/19/17 06:00 ICD10 Worksheet Patient Problems: Problems Problem Status Onset Schizoaffective disorder Acute Suicidal ideation Acute Acute psychosis Acute Forearm laceration involving tendon Acute Marijuana abuse Acute Self-inflicted injury Acute
[2017-12-27] MEDS: LITHIUM CARBONATE ER 300 MG TAB PO SCH (18:02)
[2017-12-27] MEDS: DIVALPROEX ER 250 MG TAB PO SCH (18:02)
[2017-12-27] MEDS: lamoTRIgine 100 MG TAB PO SCH (18:02)
[2017-12-27] MEDS: CHOLECALCIFEROL VIT D3 1,000 UNITS TAB PO SCH (18:02)
[2017-12-27] MEDS: cloZAPine 100 MG TAB PO SCH (18:04)
[2017-12-27] MEDS: METHYLFOLATE 15 MG PO SCH (18:05)
--- NOTE | 2017-12-28 14:24 | ASMTCMCOM ---
CM Note CM Note Notes: CC checked in with ct. who reported that he is "doing better but still feeling paranoid about the future". He is not sure what the plan is regarding additional ECT sessions. Ct. presented as more expressive and engaged. He reported that his parents will be visiting him over the weekend. Date Signed: 12/28/2017 02:23 PM Electronically Signed By:Dipika Rose
--- NOTE | 2017-12-28 19:08 | SOAPPROG ---
SOAP Progress Note Assessment/Plan: Assessment: Schizoaffective d/o Bipolar Type Plan: Pt engaged in Art therapy and in milieu, which is improvement for him. However, he endorses on going AH and grandiose delusional beliefs. Still also occasional CAH to hurt self but he feels more empowered to NOT act on them. Tolerating CLoz with only mild sedation. WIll check levels am reflective of dose of 150 mg. Will cont acute B ect. Pt does not feel as if ECT increases AH; he indicated that that was an infrequent association he made. On MSE, he is pleasant and cooperative, but has marked response latency, ( almost as if responding to internal stimuli vs thought blocking). He is mildly disheveled. 12/04/17 12:15 12/04/17 12:28 12/05/17 18:00 Pt skipped ECT today, initially due to report that he had eaten a muffin at 9am. Pt insisted he did but staffing assistant had good evidence to contrary. On further eval, he appears to staffing assistant to be more confused and disoriented. I inteviewed him later in day and confirmed a notable change with some disorientation, disorganized speech and poor STM that seemed more c/w an acute confusional state rather than symptomatic of his mood/psychotic disorder. He has significant potential contributants to this including 1) acute ECT 2) Li with level of 1.0 with use during acute ECT and 3) recent addition and titration of strongly anticholinergic Clozaril. Will hold doses of [place], and reduce Cloz back to 100 mg (checking level in AM ), May need to hold ECT sunday if confusion continues. He is not agitated nor expressing any drive to self harm, either from CAH or otherwise. Will keep him on precautions however, given change in MS. Further, he is afebrile, not rigid, with stable VS that are WNL 12/05/17 18:05 12/05/17 18:07 12/06/17 16:30 Pt is a bit less confused and less disoriented today (A O X3) Yet still some increased thought blocking, word finding, increased response latency and inability to answer more open, less structured questions. Describes mood as labile ranging intraday from overly happy/euphoric to depressed and anxious. Does have paranoid delusions that are more prominent at hs (?c/w delirium, atop his baseline psychosis). Unable to answer Q re status of CAH becoming almost momentarily fixed in his gaze downward and ultimately beginning, many seconds later, to respond in a non sensical/disorganized fashion. Will cont to hold Li one more night, then maybe restart at lower dose. Will hold ECT tomorrow. Cloz back down to 100mg with levels pnd. Perfects storm of acute ECT--with its cognitive SEs and increased permeability of BBB-coupled with delerogenic meds with greater TUBE LANCER penetration (Li and Cloz), contributed to delirium. No discharge tomorrow given this clinical event. 12/07/17 14:21 Met with patient and parents today. He is much improved in terms of delirium as of today. Discussed virtue of continueing acute ECT along with Cloz into next week but that we will hold Li for duration of acute tx. Pt still expressing some concerns for own safety if out [place]. Pt feeling "Up " during visit and some inappropriate laughter was noted. He was not otherwise engaged in visit, and most of the discussion was btw parents and fha underwriter 12/11/17 13:35 Pt interviewed today, one day post last ECT. He is A O times 3. Still with increased response latency, especially when asked open ended question pertaining to his mood or psychotic symptoms. Less so for emotionally neutral topics or more structured questions. Presently, feels that CAH are in the background by states that "the plot goes that they [the CAH] will come back in the real world" describing his concern that he is still quite fragile and susceptible to increased psychotic symptoms under the stressors of beiing out of hospital. Moods is likewise presently not overtly manic or depressed. He has no ego-syntonic desire to kill himself at present. In retrospecting over last 24 hours--limited in his ability to do so by virtue of STM impact of ECT/recent delirium--he feels that he had had some mood lability with arguably manic bouts involving graniosity and expansive mood. Plan is to do at least two more acute ECTs inpt, while continueing to hold Li and keep Cloz at 100. Post acute ECT, Li to be restarted, and Cloz to be titrated higher given low level. 12/13/17 15:58 Pt apparently has incorporated me into a paranoid delusional system. His "observing ego" is aware that there is no rational basis for idea but he feels it nonetheless. I queried whether it will be an impedement in his trusting my suggestions as his psychiatrist. He indicated not. I shared lengthy discussion I had had with Dr Perez about re-starting DEPakote. He agrees. Will need to decrease home dosage of LMT. Will start with low dose so as not to interfere markedly with ECT efficacy. He is unkempt, odd, intermittant in eye contact, with increased response latency. Mood remains labile, per pt. +AH yet denies intense CAH with coaxing of him to self harm while on unit, but still with fear of that happening if not here. 12/18/17 11:31 Pt is seen in room, where he was upright in bed, not sleeping mid morning. He is A and O x3. No evidence of delirium. He was less delayed in respose time today as well, and showed insight into the delusional material reported. Reports some new delusional material re his voices becoming the "treatment team " and starting to exert influence over his treatment course. He bemoans dramatic amnesia for last month or longer, but responded to reassurance that that is expected from ECT and his illness exacerbation itself. Tolerating med changes without C/O. Will increase CLoz today to 150 mg as we are holding off on ECT Sunday. Checking levels. This episode is proving quite refractory to med and acute ECT both, with the limiting factor of confusional states and pronounced STM effects from the confluence of both treatment modalities. I shared with him that two options are available to him: first is to reduce ECT frequency and maximize med dosing. Second, it to clear all meds temporarily whilst instituting further 3x/week ECT (with the theory that the ECT efficacy is being partly reduced by his remaining on AED meds and meds that increase cognitive impact, such as Li). We are to attempt the first option first with his consent, which was provided. 12/19/17 13:23 Li level .6, VPA 42, LMT level pnd. No SE with meds noted by patient. C/O of STM effect, most likely due primarily to ECT. SOme ongoing increased response latency/thought blocking. Cont. Med unchanged for now. ECT for Sunday. 12/20/17 09:00 Pt interviewed while eating breakfast. Appreciated Emailed alert from staff on 3N re his delayed presentation last evening (post Cloz dose but pre night meds) and strange, illogical statements made about "G FOrces" and "Quinonez Rays". He has limited recollection of event of last evening. This MAY speak to on going confusional states, c/w delirium due to "perfect storm" of acute ECT and his psychotropic meds. Will delay further acute ECT and concentrate on his med regimen for now given the confusion (which makes the it impossible to assess the level of his psychosis and mood symptoms). I will also hold off on increasing Cloz dose yet given its anticholinergic SEs, but will re check a Cloz level tomarrow AM 12/21/17 15:24 Pt interviewed in mid afternoon in his room, where he way lying in bed with blanket covering him, but not asleep, not reading or writing. He brought up that he is still feeling that he is being surveyed yet has some insight into the delusional nature of this belief. Mood is presently not very depressed, anxious or agitated. No ego syntonic desire to self harm and no recent CAH to do so. Some increase in response latency, but less so than it had been. Disheveled and unkempt, with some impaired relatedness. LMT level 3.4. CLOZ level pnd. No significant SEs described. May nonetheless wait on CLoz level to decide about how much more to titrate. Pt does wish to have an ECT treatment sunday. He feels safe to try AG with staff/family 12/25/17 15:46 Pt remains with blunted affect, slowed response time, PMR and on going paranoia and increased AH lilibeth in evenings. He sleeps with light on for that reason. No significant SE with recent increase in CLoz and Depakote. Cloz level still quite low (187) reflective of 150 mg. Had increased to 200 yesterday, but will push to 250 tonight given lack of severe sedation or orthostatic symptoms. VSS. WBC/ANC wnl. No CAH thankfully. Pt to let Parents help him assess his readiness to try discharge. At this moment, pt endorses a great deal of anxiety about leaving due to on going psychosis even in absence of CAH for him to harm self. May use opportunity of his continued stay to push the Cloz dose more aggressively than one might do as outpt 12/26/17 13:43 Pt remains disheveled, with pronounced response latency (admitting to responding to something described vaguely but clearly meaning AH), with PMR, on going paranoid delusions most prominent at night and fear of discharge as "they are out THERE" referring to some entity or "people" who are aiming to harm him in some way and cant quite "get in here" referring to unit. Plan is to titrate CLoz, which he is tolerating without profound sedation or orthostatis, hyperthermia, ANC decreases or sialorrhe. WIll increase dose to 300 mg tonight and re check level in two days.. Keep ECT weekly but may choose to resume acute ECT and terminate all meds except Cloz if med regimen, with only weekly ECT, is falling short of aiding his psychosis and AH. 12/27/17 13:23 Pt reported no significant SE with clozaril, but after review of notes it appears as if he had a post CLoz dose period of tachycardia, drooling and disorientation and gait instability. This indicates that we need to halt the titration of that med, and indeed I will re-decrease it back to 250 mg and check a level. He was A and O x 3this am, and reports no nocturnal drooling. VSS this am, with pulse high for him but below 100 (it reached 130 last night). Pt still experiencing hs paranoia and AH. I might also change the CLoz dosing back to qhs rather than q dinner, as it has not helped the psychosis he seems have in evening but increased his SEs during a period of time when he is not yet ready to go to bed. 12/28/17 19:03 Today, pt is more clearly alert and engaged with improvement in response latency. Still disheveled, impoverished, [place] and soft in speech. Better related and improved eye contact. Still endorses predominant nighttime paranoia and AH. No CAH to harm self. He can recollect activities he did last evening, post dinner and before bed indicating no amnesia (that would be c/w delirium/confusional state). Will hold med doses unchanged over weekend as rapid increase in CLozaril likely contributed to confusion). Pt wishes to do ECT sunday. Left with mother with update on pt and solicited her feedback as to how she thinks he is doing. 12/28/17 19:08 Objective: Vital Signs Temp Pulse Resp BP Pulse Ox 36.6 C 93 20 105/77 95 12/28/17 06:00 12/28/17 06:00 12/28/17 06:00 12/28/17 06:00 12/28/17 06:00 Laboratory Results 12/25/17 06:30 12/19/17 06:00 ICD10 Worksheet Patient Problems: Problems Problem Status Onset Schizoaffective disorder Acute Suicidal ideation Acute Acute psychosis Acute Forearm laceration involving tendon Acute Marijuana abuse Acute Self-inflicted injury Acute
[2017-12-28] MEDS: DIVALPROEX ER 250 MG TAB PO SCH (20:55)
[2017-12-28] MEDS: CHOLECALCIFEROL VIT D3 1,000 UNITS TAB PO SCH (20:55)
[2017-12-28] MEDS: LITHIUM CARBONATE ER 300 MG TAB PO SCH (20:55)
[2017-12-28] MEDS: cloZAPine 100 MG TAB PO SCH (20:56)
[2017-12-28] MEDS: lamoTRIgine 100 MG TAB PO SCH (20:56)
[2017-12-28] MEDS: METHYLFOLATE 15 MG PO SCH (20:57)
--- NOTE | 2017-12-29 12:58 | ASMTCMCOM ---
CM Note CM Note Notes: Client is on the unit interacting with other peers. His more seems to be more stable; however, still vocalizes on going paranoia as well as command AH. Client is still delayed when asnwering some questions. Client slept 9 hours last night. Date Signed: 12/29/2017 12:58 PM Electronically Signed By:Sonido Perez
--- NOTE | 2017-12-29 17:20 | SOAPPROG ---
SOAP Progress Note Assessment/Plan: Assessment: 27yo CM with Schizoaffective d/o, with mood instability, psychosis including CAH to cut arm (and +hx of doing so), with worse paranoia at night. Admitted for ECT. Mult recent med changes. Gradually improving 12/29/17 17:49 per staff, pt slept 9hr. still with slowed responses, but decr AH and still +AH at HS. Seems has been in better mood. Has been on AG with parents. Attending groups and has been visible in milieu. On interview, pt w/ fair-good ec, cooperative, nml speech vol, articulate, delay in responses at times but seemed more due to attempting to express thoughts or find right words rather than responding to IS. reports "doing well, " describes mood as feeling he is "hard to be perceived as honest and energized ". affect somewhat restricted. denied any SI/thoughts to harm others. denied any VH or current AH. Readily voices that his paranoia and fear are increased at night once lights are out (sleeps with them on)- which causes "my brain power to be devoted to this group that surveils me and is unhappy with my existence". i/j seems good for his level of chronic illness. cognition seems intact. Denied any adverse effects to meds or any problems with ECT besides some decr STM Has been out with parents on AG privs. Reports no problems on AG, no SI, but admits occasional "fleeting fantasy of being watched" when outside. Parents report feeling pt has been "stable this week" lilibeth if only complaint is needing to sleep with light on. Answered some of their questions about Clozaril, and they wondered whether it was time to change therapists after 6 years. Seems freq is about q2wk, pt not feeling very connected. Encouraged them to discuss this concern with the therapist, including considering incr freq to 1-2x/wk for a period of time, which may offer more benefit or help pt connect better. PLAN: cont current meds, ECT. cont AG privs Cloz level pending. Objective: Vital Signs Temp Pulse Resp BP Pulse Ox 36.8 C 86 14 110/57 L 96 12/29/17 06:00 12/29/17 06:00 12/29/17 06:00 12/29/17 06:00 12/29/17 06:00 Laboratory Results 12/25/17 06:30 12/19/17 06:00 - Time Spent With Patient Time Spent With Patient: 40min, parents also present w/pt consent - Pending Discharge Pending Discharge Within 24 Hours: No Pending Discharge Within 48 Hours: No ICD10 Worksheet Patient Problems: Problems Problem Status Onset Schizoaffective disorder Acute Suicidal ideation Acute Acute psychosis Acute Forearm laceration involving tendon Acute Marijuana abuse Acute Self-inflicted injury Acute
[2017-12-29] MEDS: cloZAPine 100 MG TAB PO SCH (21:28)
[2017-12-29] MEDS: CHOLECALCIFEROL VIT D3 1,000 UNITS TAB PO SCH (21:29)
[2017-12-29] MEDS: LITHIUM CARBONATE ER 300 MG TAB PO SCH (21:29)
[2017-12-29] MEDS: DIVALPROEX ER 250 MG TAB PO SCH (21:29)
[2017-12-29] MEDS: lamoTRIgine 100 MG TAB PO SCH (21:29)
[2017-12-29] MEDS: METHYLFOLATE 15 MG PO SCH (21:30)
[2017-12-30] MEDS: DIVALPROEX ER 250 MG TAB PO SCH (19:42)
[2017-12-30] MEDS: lamoTRIgine 100 MG TAB PO SCH (19:43)
[2017-12-30] MEDS: LITHIUM CARBONATE ER 300 MG TAB PO SCH (19:43)
[2017-12-30] MEDS: METHYLFOLATE 15 MG PO SCH (19:43)
[2017-12-30] MEDS: cloZAPine 100 MG TAB PO SCH (20:11)
[2017-12-30] MEDS: CHOLECALCIFEROL VIT D3 1,000 UNITS TAB PO SCH (20:12)
--- NOTE | 2017-12-30 21:58 | SOAPPROG ---
SOAP Progress Note Assessment/Plan: Assessment: 27yo CM with Schizoaffective d/o, with mood instability, psychosis including CAH to cut arm (and +hx of doing so), with worse paranoia at night. Admitted for ECT. Mult recent med changes. Gradually improving 12/29/17 17:49 per staff, pt slept 9hr. still with slowed responses, but decr AH and still +AH at HS. Seems has been in better mood. Has been on AG with parents. Attending groups and has been visible in milieu. On interview, pt w/ fair-good ec, cooperative, nml speech vol, articulate, delay in responses at times but seemed more due to attempting to express thoughts or find right words rather than responding to IS. reports "doing well, " describes mood as feeling he is "hard to be perceived as honest and energized ". affect somewhat restricted. denied any SI/thoughts to harm others. denied any VH or current AH. Readily voices that his paranoia and fear are increased at night once lights are out (sleeps with them on)- which causes "my brain power to be devoted to this group that surveils me and is unhappy with my existence". i/j seems good for his level of chronic illness. cognition seems intact. Denied any adverse effects to meds or any problems with ECT besides some decr STM Has been out with parents on AG privs. Reports no problems on AG, no SI, but admits occasional "fleeting fantasy of being watched" when outside. Parents report feeling pt has been "stable this week" lilibeth if only complaint is needing to sleep with light on. Answered some of their questions about Clozaril, and they wondered whether it was time to change therapists after 6 years. Seems freq is about q2wk, pt not feeling very connected. Encouraged them to discuss this concern with the therapist, including considering incr freq to 1-2x/wk for a period of time, which may offer more benefit or help pt connect better. PLAN: cont current meds, ECT. cont AG privs Cloz level pending. 12/30/17 20:22 slept 7.5hr. has been pleasant, attending groups. Pt with visitors today, went off unit. Brief interaction w/ pt who reported feeling fine, no SI, denied AH/VH. Was verbally noted more engaged, with less delay, smiling with family. PLAN: cont current meds, ECT. cont AG privs Cloz level pending. Objective: Vital Signs Temp Pulse Resp BP Pulse Ox 36.9 C 93 14 127/67 H 98 12/30/17 06:00 12/30/17 06:00 12/30/17 06:00 12/30/17 06:00 12/30/17 06:00 Laboratory Results 12/25/17 06:30 12/19/17 06:00 - Time Spent With Patient Time Spent With Patient: 10min - Pending Discharge Pending Discharge Within 24 Hours: No Pending Discharge Within 48 Hours: No ICD10 Worksheet Patient Problems: Problems Problem Status Onset Schizoaffective disorder Acute Suicidal ideation Acute Acute psychosis Acute Forearm laceration involving tendon Acute Marijuana abuse Acute Self-inflicted injury Acute
[2017-12-31] MEDS ORDERED: ONDANSETRON 4 MG/2 ML VIAL ONE (05:19)
[2017-12-31] MEDS ORDERED: fentaNYL 100 MCG/2 ML INJ ONE (05:19)
[2017-12-31] MEDS ORDERED: MIDAZOLAM 2 MG/2 ML VIAL ONE (05:19)
[2017-12-31] MEDS ORDERED: GLYCOPYRROLATE 0.2 MG/1 ML VIAL ONE (05:19)
[2017-12-31] MEDS ORDERED: ROCURONIUM 50 MG/5 ML VIAL ONE (05:20)
[2017-12-31] MEDS ORDERED: SUCCINYLCHOLINE CHLORIDE 200 MG/10 ML VIAL ONE (05:20)
[2017-12-31] MEDS ORDERED: ETOMIDATE 20 MG/10 ML VIAL ONE (05:20)
[2017-12-31] MEDS ORDERED: ONDANSETRON DISINTEGRATING 4 MG TAB PO PRN (08:49)
[2017-12-31] MEDS ORDERED: THEOPHYLLINE ORAL SOLUTION 80 MG/15 ML UDCUP PO ONE (08:49)
[2017-12-31] MEDS ORDERED: NS 1,000 ML IV PRN (08:49)
[2017-12-31] MEDS ORDERED: CITRIC ACID/SODIUM CITRATE 30 ML UDCUP PO PRN (08:49)
[2017-12-31] MEDS ORDERED: ONDANSETRON DISINTEGRATING 4 MG TAB ONE (10:05)
[2017-12-31] MEDS ORDERED: CITRIC ACID/SODIUM CITRATE 30 ML UDCUP ONE (10:05)
--- NOTE | 2017-12-31 10:43 | PDANEPAE ---
ECT Pre Anesthetic Evaluation Allergies/Adverse Reactions: ketamine Allergy (Verified 11/20/17 22:10) nausea/vomiting morphine Allergy (Verified 11/20/17 22:10) psychosis oxycodone Allergy (Verified 11/20/17 22:10) psychosis Patient ID confirmed: Yes H&P reviewed: Yes Pre-anesthetic history reviewed: Yes Heart: regular rate and rhythym, no murmur, rub, or gallop Lungs: no respiratory distress, clear to auscultation Mallampati Score: Class 1 ASA Status: I Home Medications: Medication Instructions Recorded lamoTRIgine [LamICTAL 100 MG (*)] 250 mg PO HS 10/07/16 Vraylar 4.5 mg PO HS 08/29/17 Cholecalciferol Vit D3 [Vitamin D3 1,000 units PO HS 11/21/17 (*)] Gabapentin [Neurontin 300 MG (*)] 300 mg PO TID 11/21/17 Ibuprofen [Motrin (*)] 400 mg PO DAILY PRN 11/21/17 L-Methylfolate 15m Cap 15 mg PO HS 11/21/17 LORazepam [Ativan (*)] 1 - 2 mg PO DAILY PRN 11/21/[address] [place] Carbonate ER [Lithobid 300 1,500 mg PO HS 11/21/17 mg (*)] lamoTRIgine [LamICTAL] 25 mg PO HS 11/21/17 Medication review: completed Patient interviewed: Yes Patient examined: Yes Anesthetic plan discussed with patient: Yes Anesthetic risks discussed with patient: Yes ECT Pre-Anesthetic History - Height & Weight Height: 180.34 cm Weight: 74.559 kg BMI: 22.94 - Anesthesia History Hx Anesthesia Complications (with details): None Family Hx Anesthesia Complications: None - Medications In the Past 6 Months the Patient Has Taken: Aspirin - Tobacco/Alcohol/Drug Use Smoking Status: Current every day smoker Hx Drug/Substance Abuse: No Alcohol Use: Yes - Prior Surgeries/Hospitalizations Prior Surgeries: Fracture repair of left femur - Pulmonary History ECT Hx Asthma: No Hx Abnormal Chest X-Ray: No Hx Oxygen in Use at Home: No - Cardiovascular History Hx Hypertension: No Currently Uses Hypertension Medication: No Hx Arrhythmias: No Hx Palpitations: No Hx Chest Pain: No Hx Coronary Artery / Peripheral Vascular Disease: No Hx Blood Clot: No - Neurologic History Hx Cerebrovascular Accident: No Hx CT Scan Or MRI Of The Brain: No Hx Epilepsy, Convulsions, Seizures, Or Blackouts: No Hx Frequent Or Severe Headaches: No Hx Numbness: No Hx Neurologic Disorder: No - Dental History Current Dental Issues: None Dental History Comment: Pt. answered yes to "dentures, caps, bridges or braces. " Discussed with Dr. Eubanks. Will document specifics at next evaluation. Pt states he has one fake tooth. - Endocrine History Hx Diabetes: No Current Daily Insulin Injections: No Hx Thyroid Problems: No - Renal/Urologic History Hx Renal Disorders: No Hx Urinary Tract Problems: No - Liver History Hx Hepatic Disorders: No - Cancer History Hx Cancer: No - Hematology History Hx Unexplained Bleeding Of Any Type: No Hx Ease Of Bruising: No Hx Anemia: No - Gastrointestinal History Hx Gastroesophogeal Reflux Disease: No Hx Ulcers: No Hx Hiatal Hernia: No Hx Difficulty Swallowing: No - Musculoskeletal Hisory Hx Chronic Pain: No Hx Arthritis: No - Opthalmic History Hx Glaucoma: No Visual Assistive Devices: Contacts Hx Opthalmic Disorders: No - Other Health History Physical Disabililty: No Recent Cough, Cold, or Fever: No Significant Weight Loss In The Last 4 Months: No Possible the Patient Might be : No
--- NOTE | 2017-12-31 10:54 | PDECTPN ---
ECT Progress Note Patient Problems: Problems Problem Status Onset Code Schizoaffective disorder Acute F25.9 Suicidal ideation Acute R45.851 Acute psychosis Acute F23 Forearm laceration involving tendon Acute S51.819A, S56.929A Marijuana abuse Acute F12.10 Self-inflicted injury Acute Z72.89 Date: 12/31/17 ECT provider: Gomez Lopez Stimulus dose (%): 100 Pulse width: 0.5 ECT EMG (sec): 31 ECT EEG (sec): 43 ECT treatment type: bilateral QIDS-SR Total Score: 6 QIDS-SR Question #12 Score: 0 MMSE Total Score (Max = 21): 21 Next ECT date: 01/04/18 Next ECT time: 14:00 O/P psychiatrist follow up with : Jaron Perez O/P psychiatrist follow up: phone, voice message Home medications: Medication Instructions Recorded lamoTRIgine [LamICTAL 100 MG (*)] 250 mg PO HS 10/07/16 Vraylar 4.5 mg PO HS 08/29/17 Cholecalciferol Vit D3 [Vitamin D3 1,000 units PO HS 11/21/17 (*)] Gabapentin [Neurontin 300 MG (*)] 300 mg PO TID 11/21/17 Ibuprofen [Motrin (*)] 400 mg PO DAILY PRN 11/21/17 L-Methylfolate 15m Cap 15 mg PO HS 11/21/17 LORazepam [Ativan (*)] 1 - 2 mg PO DAILY PRN 11/21/17 [place] Carbonate ER [Lithobid 300 1,500 mg PO HS 11/21/17 mg (*)] lamoTRIgine [LamICTAL] 25 mg PO HS 11/21/17 Current treatment plan: maintenance, increased frequency cycle d/t exacerbation of symptoms Treatment plan frequency: 1 time per week ECT narrative: Reviewed inpatient chart. Inteviewed pt. He still c/o of paranioa and referential ideas, some AH and mood that is marked by some expansive, grandiose themes. No overt signs of veronica or depression however and QIDS was 4. Intense CAH to hurt self is abated, but pt somewhat guarded when answering this. No sig SE with Cloz at 100 mg. Will titrate to 150 mg and check levels soon thereafter. Will discuss dispo options with pt and parents tomorrow. Cont acute B ECT as well. WBC wnl. VS stable without tachycardia or hyperpyrexia 12/10/17 reviewed notes from weekend. Delirium appears fully resolved. Pt scores MMSE 21/21, and his A and O x3. Has, as expected, unclear recollection of events of last week. Still with some mood lability and AH, and paranoia, most prominent at night. Will change cloz to dinner time to address this. Will re attempt ECT, in the absence of Li and will lower dose CLoz, with hopes of getting benefit without confusional state. WIll also hold any AED med the night before each tx (gabapentin and LMT). Indeed, will lower LMT for duration of acute ECT to ensure maximal seizure activity. After acute ECT is completed, will re-increase LMT, restart Li at prior dose and encourage further titration of Cloz given its low serum level 12/12 Pt remains impov, PMR, increased response latency.Still endorses hs paranoia and AH, yet not as intense or negative as it had been. Will proceed with acute ECT through Sunday, then consider re-start Li and increase Cloz with mECT done at a freq (ie, weekly) rate. Or, it may be necessary to proceed into next week with further acute ECT and hold off on med changes until completed. 12/14 Pt still quite paranoid, with notable response latency. Guarded re notion of specification writer being incorporated into his delusional system. No SE noted with first depakote dose. Plan to do ECT into next week, and cont meds--including depakote- -holding doses of any AED the night prior to ECT 12/17 Received vm from mother indicating some delirium noted; pt remains with some paranoid over valued ideas and includes this specification writer in a delusional system involving surveying him. Will hold off on ECT sun and do 2x/week this week, allowing for meds to be Rx'ed with less interruption as well. Will decrease Li to 900 mg, as Depakote on board at 1000 mg (will check level on Sun). LMT to be kept at 100 mg, down from 275, due to interaction with VPA. Cloz will remains at 100 mg, but has room for improvement in terms of blood level once ECT is being done at 1x/week or less frequently (increased chance for cognitive impact with its anticholinergic SE when coupled with acute ECT). 12/[address] Christy. Pt had better weekend. Mood a bit "up" pertaining to hypomanic symptoms, and still having evening time paranoia. But, clearer in terms of cognition with no agititation, SI, or CAH coaxing him to harm self. Will increase CLoz ahead of blood level to 200 mg, as he is tolerating it well and will likely need such an increase given very low level at 100 mg. Will also increase Depakote to 1250 given level of 42 on 1000 mg.. WIll discuss discharge possiblity for this week if symptoms remains overall in upward trend. Plan to keep ECT to weekly for now. 12/31 Read Weekend coverage notes and received lengthy VM from mother, with whom specification writer will speak today. Pt overall improving in cognition, and a bit less repsonse latency, able to stay on topic, per mom, even if there was a delay in response. However, he got derailed and more psychotic from peer on unit uttering the profanity, "Suck me #$%" to patient as he walked by. He still has hs paranoia. This is expressed as some worry re discharge as he feels somehow these entities could become more prominent outside hospital.
--- NOTE | 2017-12-31 14:29 | ASMTCMCOM ---
CM Note CM Note Notes: CC met with pt. briefly today. Pt. reports doing okay. Pt. asked CC where is wallet was. CC explained to pt. that his parents took his wallet and phone home. Pt. appeared confused after receiving ECT at 10am today. Pt. presents as alert, calm, confused at times, pleasant, polite, and with good eye contact. Staff report pt. sleeping 9 hours and being medication compliant. Date Signed: 12/31/2017 02:29 PM Electronically Signed By:Indigo Donald
[2017-12-31] MEDS: cloZAPine 100 MG TAB PO SCH (21:00)
[2017-12-31] MEDS: CHOLECALCIFEROL VIT D3 1,000 UNITS TAB PO SCH (21:00)
[2017-12-31] MEDS: DIVALPROEX ER 250 MG TAB PO SCH (21:02)
[2017-12-31] MEDS: LITHIUM CARBONATE ER 300 MG TAB PO SCH (21:02)
[2017-12-31] MEDS: METHYLFOLATE 15 MG PO SCH (21:04)
[2017-12-31] MEDS: lamoTRIgine 100 MG TAB PO SCH (21:06)
[2018-01-01 08:06] LABS: PLATELET COUNT 157 10^3/uL (150-400)
--- NOTE | 2018-01-01 13:52 | SOAPPROG ---
SOAP Progress Note Assessment/Plan: Assessment: Schizoaffective d/o Bipolar Type Plan: Pt engaged in Art therapy and in milieu, which is improvement for him. However, he endorses on going AH and grandiose delusional beliefs. Still also occasional CAH to hurt self but he feels more empowered to NOT act on them. Tolerating CLoz with only mild sedation. WIll check levels am reflective of dose of 150 mg. Will cont acute B ect. Pt does not feel as if ECT increases AH; he indicated that that was an infrequent association he made. On MSE, he is pleasant and cooperative, but has marked response latency, ( almost as if responding to internal stimuli vs thought blocking). He is mildly disheveled. 12/04/17 12:15 12/04/17 12:28 12/05/17 18:00 Pt skipped ECT today, initially due to report that he had eaten a muffin at 9am. Pt insisted he did but hourly sales staff had good evidence to contrary. On further eval, he appears to hourly sales staff to be more confused and disoriented. I inteviewed him later in day and confirmed a notable change with some disorientation, disorganized speech and poor STM that seemed more c/w an acute confusional state rather than symptomatic of his mood/psychotic disorder. He has significant potential contributants to this including 1) acute ECT 2) Li with level of 1.0 with use during acute ECT and 3) recent addition and titration of strongly anticholinergic Clozaril. Will hold doses of Fingal, and reduce Cloz back to 100 mg (checking level in AM ), May need to hold ECT sunday if confusion continues. He is not agitated nor expressing any drive to self harm, either from CAH or otherwise. Will keep him on precautions however, given change in MS. Further, he is afebrile, not rigid, with stable VS that are WNL 12/05/17 18:05 12/05/17 18:07 12/06/17 16:30 Pt is a bit less confused and less disoriented today (A O X3) Yet still some increased thought blocking, word finding, increased response latency and inability to answer more open, less structured questions. Describes mood as labile ranging intraday from overly happy/euphoric to depressed and anxious. Does have paranoid delusions that are more prominent at hs (?c/w delirium, atop his baseline psychosis). Unable to answer Q re status of CAH becoming almost momentarily fixed in his gaze downward and ultimately beginning, many seconds later, to respond in a non sensical/disorganized fashion. Will cont to hold Li one more night, then maybe restart at lower dose. Will hold ECT tomorrow. Cloz back down to 100mg with levels pnd. Perfects storm of acute ECT--with its cognitive SEs and increased permeability of BBB-coupled with delerogenic meds with greater [employer] penetration (Li and Cloz), contributed to delirium. No discharge tomorrow given this clinical event. 12/07/17 14:21 Met with patient and parents today. He is much improved in terms of delirium as of today. Discussed virtue of continueing acute ECT along with Cloz into next week but that we will hold Li for duration of acute tx. Pt still expressing some concerns for own safety if out of the [place]. Pt feeling "Up " during visit and some inappropriate laughter was noted. He was not otherwise engaged in visit, and most of the discussion was btw parents and ghost writer 12/11/17 13:35 Pt interviewed today, one day post last ECT. He is A O times 3. Still with increased response latency, especially when asked open ended question pertaining to his mood or psychotic symptoms. Less so for emotionally neutral topics or more structured questions. Presently, feels that CAH are in the background by states that "the plot goes that they [the CAH] will come back in the real world" describing his concern that he is still quite fragile and susceptible to increased psychotic symptoms under the stressors of beiing out of hospital. Moods is likewise presently not overtly manic or depressed. He has no ego-syntonic desire to kill himself at present. In retrospecting over last 24 hours--limited in his ability to do so by virtue of STM impact of ECT/recent delirium--he feels that he had had some mood lability with arguably manic bouts involving graniosity and expansive mood. Plan is to do at least two more acute ECTs inpt, while continueing to hold Li and keep Cloz at 100. Post acute ECT, Li to be restarted, and Cloz to be titrated higher given low level. 12/13/17 15:58 Pt apparently has incorporated me into a paranoid delusional system. His "observing ego" is aware that there is no rational basis for idea but he feels it nonetheless. I queried whether it will be an impedement in his trusting my suggestions as his psychiatrist. He indicated not. I shared lengthy discussion I had had with Dr Perez about re-starting DEPakote. He agrees. Will need to decrease home dosage of LMT. Will start with low dose so as not to interfere markedly with ECT efficacy. He is unkempt, odd, intermittant in eye contact, with increased response latency. Mood remains labile, per pt. +AH yet denies intense CAH with coaxing of him to self harm while on unit, but still with fear of that happening if not here. 12/18/17 11:31 Pt is seen in room, where he was upright in bed, not sleeping mid morning. He is A and O x3. No evidence of delirium. He was less delayed in respose time today as well, and showed insight into the delusional material reported. Reports some new delusional material re his voices becoming the "treatment team " and starting to exert influence over his treatment course. He bemoans dramatic amnesia for last month or longer, but responded to reassurance that that is expected from ECT and his illness exacerbation itself. Tolerating med changes without C/O. Will increase CLoz today to 150 mg as we are holding off on ECT Sunday. Checking levels. This episode is proving quite refractory to med and acute ECT both, with the limiting factor of confusional states and pronounced STM effects from the confluence of both treatment modalities. I shared with him that two options are available to him: first is to reduce ECT frequency and maximize med dosing. Second, it to clear all meds temporarily whilst instituting further 3x/week ECT (with the theory that the ECT efficacy is being partly reduced by his remaining on AED meds and meds that increase cognitive impact, such as Li). We are to attempt the first option first with his consent, which was provided. 12/19/17 13:23 Li level .6, VPA 42, LMT level pnd. No SE with meds noted by patient. C/O of STM effect, most likely due primarily to ECT. SOme ongoing increased response latency/thought blocking. Cont. Med unchanged for now. ECT for Sunday. 12/20/17 09:00 Pt interviewed while eating breakfast. Appreciated Emailed alert from staff on 3N re his delayed presentation last evening (post Cloz dose but pre night meds) and strange, illogical statements made about "G FOrces" and "[employer] R[employer]". He has limited recollection of event of last evening. This MAY speak to on going confusional states, c/w delirium due to "perfect storm" of acute ECT and his psychotropic meds. Will delay further acute ECT and concentrate on his med regimen for now given the confusion (which makes the it impossible to assess the level of his psychosis and mood symptoms). I will also hold off on increasing Cloz dose yet given its anticholinergic SEs, but will re check a Cloz level tomarrow AM 12/21/17 15:24 Pt interviewed in mid afternoon in his room, where he way lying in bed with blanket covering him, but not asleep, not reading or writing. He brought up that he is still feeling that he is being surveyed yet has some insight into the delusional nature of this belief. Mood is presently not very depressed, anxious or agitated. No ego syntonic desire to self harm and no recent CAH to do so. Some increase in response latency, but less so than it had been. Disheveled and unkempt, with some impaired relatedness. LMT level 3.4. CLOZ level pnd. No significant SEs described. May nonetheless wait on CLoz level to decide about how much more to titrate. Pt does wish to have an ECT treatment sunday. He feels safe to try AG with staff/family 12/25/17 15:46 Pt remains with blunted affect, slowed response time, PMR and on going paranoia and increased AH lilibeth in evenings. He sleeps with light on for that reason. No significant SE with recent increase in CLoz and Depakote. Cloz level still quite low (187) reflective of 150 mg. Had increased to 200 yesterday, but will push to 250 tonight given lack of severe sedation or orthostatic symptoms. VSS. WBC/ANC wnl. No CAH thankfully. Pt to let Parents help him assess his readiness to try discharge. At this moment, pt endorses a great deal of anxiety about leaving due to on going psychosis even in absence of CAH for him to harm self. May use opportunity of his continued stay to push the Cloz dose more aggressively than one might do as outpt 12/26/17 13:43 Pt remains disheveled, with pronounced response latency (admitting to responding to something described vaguely but clearly meaning AH), with PMR, on going paranoid delusions most prominent at night and fear of discharge as "they are out THERE" referring to some entity or "people" who are aiming to harm him in some way and cant quite "get in here" referring to unit. Plan is to titrate CLoz, which he is tolerating without profound sedation or orthostatis, hyperthermia, ANC decreases or sialorrhe. WIll increase dose to 300 mg tonight and re check level in two days.. Keep ECT weekly but may choose to resume acute ECT and terminate all meds except Cloz if med regimen, with only weekly ECT, is falling short of aiding his psychosis and AH. 12/27/17 13:23 Pt reported no significant SE with clozaril, but after review of notes it appears as if he had a post CLoz dose period of tachycardia, drooling and disorientation and gait instability. This indicates that we need to halt the titration of that med, and indeed I will re-decrease it back to 250 mg and check a level. He was A and O x 3this am, and reports no nocturnal drooling. VSS this am, with pulse high for him but below 100 (it reached 130 last night). Pt still experiencing hs paranoia and AH. I might also change the CLoz dosing back to qhs rather than q dinner, as it has not helped the psychosis he seems have in evening but increased his SEs during a period of time when he is not yet ready to go to bed. 12/28/17 19:03 Today, pt is more clearly alert and engaged with improvement in response latency. Still disheveled, impoverished, montone and soft in speech. Better related and improved eye contact. Still endorses predominant nighttime paranoia and AH. No CAH to harm self. He can recollect activities he did last evening, post dinner and before bed indicating no amnesia (that would be c/w delirium/confusional state). Will hold med doses unchanged over weekend as rapid increase in CLozaril likely contributed to confusion). Pt wishes to do ECT sunday. Left with mother with update on pt and solicited her feedback as to how she thinks he is doing. 12/28/17 19:08 01/01/18 13:52 Spoke with [facility] at length yesterday and today. She sees some progress as of last evening with improvement in response latency, mood stability, absence of gopal CAH, but on going paranoia, prominent at hs. I agree with her observations. CLoz level at 250 mg is improved and just shy of target. However, I will demur from further increases at this point. COmmunicated with Dr Perez who will likely oversee the next (and likely last) step in increasing CLoz to 300 mg. Plan is tentatively to dishcarge on Sunday post ECT assuming no overt change for the worse nor any events c/w delilrium Objective: Vital Signs Temp Pulse Resp BP Pulse Ox 36.4 C 100 16 118/73 95 01/01/18 06:00 01/01/18 06:00 01/01/18 06:00 01/01/18 06:00 01/01/18 06:00 Laboratory Results 01/01/18 07:00 12/19/17 06:00 12/31/17 01/01/18 01/02/18 05:59 05:59 05:59 Intake Total 1000 Balance 1000 Laboratory Tests 12/28/17 12/28/17 06:00 06:00 Valproic Acid 39.4 L Clozapine 293 Clozapine &Norclozapine 376 Norclozapine 83 Fingal 0.7 ICD10 Worksheet Patient Problems: Problems Problem Status Onset Schizoaffective disorder Acute Suicidal ideation Acute Acute psychosis Acute Forearm laceration involving tendon Acute Marijuana abuse Acute Self-inflicted injury Acute
[2018-01-01] MEDS: LITHIUM CARBONATE ER 300 MG TAB PO SCH (20:44)
[2018-01-01] MEDS: lamoTRIgine 100 MG TAB PO SCH (20:44)
[2018-01-01] MEDS: DIVALPROEX ER 250 MG TAB PO SCH (20:44)
[2018-01-01] MEDS: CHOLECALCIFEROL VIT D3 1,000 UNITS TAB PO SCH (20:44)
[2018-01-01] MEDS: cloZAPine 100 MG TAB PO SCH (20:44)
[2018-01-01] MEDS: METHYLFOLATE 15 MG PO SCH (20:50)
--- NOTE | 2018-01-02 13:33 | ASMTCMCOM ---
CM Note CM Note Notes: Client presents as brighter than previous days. 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 Additionally, client denies any feelings of anxiety, depression, AVH and/or S/I-H/I. Client presents as calm, alert, affect is mostly appropriate to situation (eating breaksfast) with others. Moreover, client suggests receiving 10+ hours of sleep last night, while describing his mood as "still a little tired." Date Signed: 01/02/2018 01:32 PM Electronically Signed By:Sonido Perez
--- NOTE | 2018-01-02 15:15 | SOAPPROG ---
SOAP Progress Note Assessment/Plan: Assessment: Schizoaffective d/o Bipolar Type Plan: Pt engaged in Art therapy and in milieu, which is improvement for him. However, he endorses on going AH and grandiose delusional beliefs. Still also occasional CAH to hurt self but he feels more empowered to NOT act on them. Tolerating CLoz with only mild sedation. WIll check levels am reflective of dose of 150 mg. Will cont acute B ect. Pt does not feel as if ECT increases AH; he indicated that that was an infrequent association he made. On MSE, he is pleasant and cooperative, but has marked response latency, ( almost as if responding to internal stimuli vs thought blocking). He is mildly disheveled. 12/04/17 12:15 12/04/17 12:28 12/05/17 18:00 Pt skipped ECT today, initially due to report that he had eaten a muffin at 9am. Pt insisted he did but support staff had good evidence to contrary. On further eval, he appears to support staff to be more confused and disoriented. I inteviewed him later in day and confirmed a notable change with some disorientation, disorganized speech and poor STM that seemed more c/w an acute confusional state rather than symptomatic of his mood/psychotic disorder. He has significant potential contributants to this including 1) acute ECT 2) Li with level of 1.0 with use during acute ECT and 3) recent addition and titration of strongly anticholinergic Clozaril. Will hold doses of [place], and reduce Cloz back to 100 mg (checking level in AM ), May need to hold ECT sunday if confusion continues. He is not agitated nor expressing any drive to self harm, either from CAH or otherwise. Will keep him on precautions however, given change in MS. Further, he is afebrile, not rigid, with stable VS that are WNL 12/05/17 18:05 12/05/17 18:07 12/06/17 16:30 Pt is a bit less confused and less disoriented today (A O X3) Yet still some increased thought blocking, word finding, increased response latency and inability to answer more open, less structured questions. Describes mood as labile ranging intraday from overly happy/euphoric to depressed and anxious. Does have paranoid delusions that are more prominent at hs (?c/w delirium, atop his baseline psychosis). Unable to answer Q re status of CAH becoming almost momentarily fixed in his gaze downward and ultimately beginning, many seconds later, to respond in a non sensical/disorganized fashion. Will cont to hold Li one more night, then maybe restart at lower dose. Will hold ECT tomorrow. Cloz back down to 100mg with levels pnd. Perfects storm of acute ECT--with its cognitive SEs and increased permeability of BBB-coupled with delerogenic meds with greater [employer]ING [employer] penetration (Li and Cloz), contributed to delirium. No discharge tomorrow given this clinical event. 12/07/17 14:21 Met with patient and parents today. He is much improved in terms of delirium as of today. Discussed virtue of continueing acute ECT along with Cloz into next week but that we will hold Li for duration of acute tx. Pt still expressing some concerns for own safety if out of the [place]. Pt feeling "Up " during visit and some inappropriate laughter was noted. 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 He is A O times 3. Still with increased response latency, especially when asked open ended question pertaining to his mood or psychotic symptoms. Less so for emotionally neutral topics or more structured questions. Presently, feels that CAH are in the background by states that "the plot goes that they [the CAH] will come back in the real world" describing his concern that he is still quite fragile and susceptible to increased psychotic symptoms under the stressors of beiing out of hospital. Moods is likewise presently not overtly manic or depressed. He has no ego-syntonic desire to kill himself at present. In retrospecting over last 24 hours--limited in his ability to do so by virtue of STM impact of ECT/recent delirium--he feels that he had had some mood lability with arguably manic bouts involving graniosity and expansive mood. Plan is to do at least two more acute ECTs inpt, while continueing to hold Li and keep Cloz at 100. Post acute ECT, Li to be restarted, and Cloz to be titrated higher given low level. 12/13/17 15:58 Pt apparently has incorporated me into a paranoid delusional system. His "observing ego" is aware that there is no rational basis for idea but he feels it nonetheless. I queried whether it will be an impedement in his trusting my suggestions as his psychiatrist. He indicated not. I shared lengthy discussion I had had with Dr Perez about re-starting DEPakote. He agrees. Will need to decrease home dosage of LMT. Will start with low dose so as not to interfere markedly with ECT efficacy. He is unkempt, odd, intermittant in eye contact, with increased response latency. Mood remains labile, per pt. +AH yet denies intense CAH with coaxing of him to self harm while on unit, but still with fear of that happening if not here. 12/18/17 11:31 Pt is seen in room, where he was upright in bed, not sleeping mid morning. He is A and O x3. No evidence of delirium. He was less delayed in respose time today as well, and showed insight into the delusional material reported. Reports some new delusional material re his voices becoming the "treatment team " and starting to exert influence over his treatment course. He bemoans dramatic amnesia for last month or longer, but responded to reassurance that that is expected from ECT and his illness exacerbation itself. Tolerating med changes without C/O. Will increase CLoz today to 150 mg as we are holding off on ECT Sunday. Checking levels. This episode is proving quite refractory to med and acute ECT both, with the limiting factor of confusional states and pronounced STM effects from the confluence of both treatment modalities. I shared with him that two options are available to him: first is to reduce ECT frequency and maximize med dosing. Second, it to clear all meds temporarily whilst instituting further 3x/week ECT (with the theory that the ECT efficacy is being partly reduced by his remaining on AED meds and meds that increase cognitive impact, such as Li). We are to attempt the first option first with his consent, which was provided. 12/19/17 13:23 Li level .6, VPA 42, LMT level pnd. No SE with meds noted by patient. C/O of STM effect, most likely due primarily to ECT. SOme ongoing increased response latency/thought blocking. Cont. Med unchanged for now. ECT for Sunday. 12/20/17 09:00 Pt interviewed while eating breakfast. Appreciated Emailed alert from staff on 3N re his delayed presentation last evening (post Cloz dose but pre night meds) and strange, illogical statements made about "G [employer]" and "[employer] [employer]". He has limited recollection of event of last evening. This MAY speak to on going confusional states, c/w delirium due to "perfect storm" of acute ECT and his psychotropic meds. Will delay further acute ECT and concentrate on his med regimen for now given the confusion (which makes the it impossible to assess the level of his psychosis and mood symptoms). I will also hold off on increasing Cloz dose yet given its anticholinergic SEs, but will re check a Cloz level tomarrow AM 12/21/17 15:24 Pt interviewed in mid afternoon in his room, where he way lying in bed with blanket covering him, but not asleep, not reading or writing. He brought up that he is still feeling that he is being surveyed yet has some insight into the delusional nature of this belief. Mood is presently not very depressed, anxious or agitated. No ego syntonic desire to self harm and no recent CAH to do so. Some increase in response latency, but less so than it had been. Disheveled and unkempt, with some impaired relatedness. LMT level 3.4. CLOZ level pnd. No significant SEs described. May nonetheless wait on CLoz level to decide about how much more to titrate. Pt does wish to have an ECT treatment sunday. He feels safe to try AG with staff/family 12/25/17 15:46 Pt remains with blunted affect, slowed response time, PMR and on going paranoia and increased AH lilibeth in evenings. He sleeps with light on for that reason. No significant SE with recent increase in CLoz and Depakote. Cloz level still quite low (187) reflective of 150 mg. Had increased to 200 yesterday, but will push to 250 tonight given lack of severe sedation or orthostatic symptoms. VSS. WBC/ANC wnl. No CAH thankfully. Pt to let Parents help him assess his readiness to try discharge. At this moment, pt endorses a great deal of anxiety about leaving due to on going psychosis even in absence of CAH for him to harm self. May use opportunity of his continued stay to push the Cloz dose more aggressively than one might do as outpt 12/26/17 13:43 Pt remains disheveled, with pronounced response latency (admitting to responding to something described vaguely but clearly meaning AH), with PMR, on going paranoid delusions most prominent at night and fear of discharge as "they are out THERE" referring to some entity or "people" who are aiming to harm him in some way and cant quite "get in here" referring to unit. Plan is to titrate CLoz, which he is tolerating without profound sedation or orthostatis, hyperthermia, ANC decreases or sialorrhe. WIll increase dose to 300 mg tonight and re check level in two days.. Keep ECT weekly but may choose to resume acute ECT and terminate all meds except Cloz if med regimen, with only weekly ECT, is falling short of aiding his psychosis and AH. 12/27/17 13:23 Pt reported no significant SE with clozaril, but after review of notes it appears as if he had a post CLoz dose period of tachycardia, drooling and disorientation and gait instability. This indicates that we need to halt the titration of that med, and indeed I will re-decrease it back to 250 mg and check a level. He was A and O x 3this am, and reports no nocturnal drooling. VSS this am, with pulse high for him but below 100 (it reached 130 last night). Pt still experiencing hs paranoia and AH. I might also change the CLoz dosing back to qhs rather than q dinner, as it has not helped the psychosis he seems have in evening but increased his SEs during a period of time when he is not yet ready to go to bed. 12/28/17 19:03 Today, pt is more clearly alert and engaged with improvement in response latency. Still disheveled, impoverished, montone and soft in speech. Better related and improved eye contact. Still endorses predominant nighttime paranoia and AH. No CAH to harm self. He can recollect activities he did last evening, post dinner and before bed indicating no amnesia (that would be c/w delirium/confusional state). Will hold med doses unchanged over weekend as rapid increase in CLozaril likely contributed to confusion). Pt wishes to do ECT sunday. Left with mother with update on pt and solicited her feedback as to how she thinks he is doing. 12/28/17 19:08 01/01/18 13:52 Spoke with [facility] [place] at length yesterday and today. She sees some progress as of last evening with improvement in response latency, mood stability, absence of gopal CAH, but on going paranoia, prominent at hs. I agree with her observations. CLoz level at 250 mg is improved and just shy of target. However, I will demur from further increases at this point. COmmunicated with Dr Perez who will likely oversee the next (and likely last) step in increasing CLoz to 300 mg. Plan is tentatively to dishcarge on Sunday post ECT assuming no overt change for the worse nor any events c/w abigailriromie 01/02/18 15:10 Met with pt who was reading a [employer] magazine in room this afternoon. Affect brighter, better related, notably better with delayed response latency, yet expressing some anxiety about discharge. He fears that his paranoia,in particular, will be exacerbated by the stress of "being out there". There is some appropriateness to this anticipatory anxiety, given his length of stay and recalcitrance of those symptoms. I discussed the option of going up that last amount on his CLozapine, to 300 mg, while still here to 1) evaluate for any untoward effects while under medical supervision and 2) bolster his antipsychotic regimen to meet this worry about increased symptoms from stress of being in the "real world". His level, less than 450, would warrant such a change and he is likely more adapted to the med at this point than when I attempted to more quickly titrate to 300 mg. Objective: Vital Signs Temp Pulse Resp BP Pulse Ox 36.2 C 86 20 111/63 97 01/02/18 06:00 01/02/18 06:00 01/02/18 06:00 01/02/18 06:00 01/02/18 06:00 Laboratory Results 01/01/18 07:00 12/19/17 06:00 01/01/18 01/02/18 01/03/18 05:59 05:59 05:59 Intake Total 1000 Balance 1000 ICD10 Worksheet Patient Problems: Problems Problem Status Onset Schizoaffective disorder Acute Suicidal ideation Acute Acute psychosis Acute Forearm laceration involving tendon Acute Marijuana abuse Acute Self-inflicted injury Acute
[2018-01-02] MEDS: METHYLFOLATE 15 MG PO SCH (19:51)
[2018-01-02] MEDS: DIVALPROEX ER 250 MG TAB PO SCH (20:48)
[2018-01-02] MEDS: LITHIUM CARBONATE ER 300 MG TAB PO SCH (20:49)
[2018-01-02] MEDS: lamoTRIgine 100 MG TAB PO SCH (20:49)
[2018-01-02] MEDS: CHOLECALCIFEROL VIT D3 1,000 UNITS TAB PO SCH (20:49)
[2018-01-02] MEDS: cloZAPine 100 MG TAB PO SCH (20:49)
--- NOTE | 2018-01-03 11:29 | SOAPPROG ---
SOAP Progress Note Assessment/Plan: Assessment: Schizoaffective d/o Bipolar Type Plan: Pt engaged in Art therapy and in milieu, which is improvement for him. However, he endorses on going AH and grandiose delusional beliefs. Still also occasional CAH to hurt self but he feels more empowered to NOT act on them. Tolerating CLoz with only mild sedation. WIll check levels am reflective of dose of 150 mg. Will cont acute B ect. Pt does not feel as if ECT increases AH; he indicated that that was an infrequent association he made. On MSE, he is pleasant and cooperative, but has marked response latency, ( almost as if responding to internal stimuli vs thought blocking). He is mildly disheveled. 12/04/17 12:15 12/04/17 12:28 12/05/17 18:00 Pt skipped ECT today, initially due to report that he had eaten a muffin at 9am. Pt insisted he did but operations staff specialist security had good evidence to contrary. On further eval, he appears to operations staff specialist security to be more confused and disoriented. I inteviewed him later in day and confirmed a notable change with some disorientation, disorganized speech and poor STM that seemed more c/w an acute confusional state rather than symptomatic of his mood/psychotic disorder. He has significant potential contributants to this including 1) acute ECT 2) Li with level of 1.0 with use during acute ECT and 3) recent addition and titration of strongly anticholinergic Clozaril. Will hold doses of [place], and reduce Cloz back to 100 mg (checking level in AM ), May need to hold ECT sunday if confusion continues. He is not agitated nor expressing any drive to self harm, either from CAH or otherwise. Will keep him on precautions however, given change in MS. Further, he is afebrile, not rigid, with stable VS that are WNL 12/05/17 18:05 12/05/17 18:07 12/06/17 16:30 Pt is a bit less confused and less disoriented today (A O X3) Yet still some increased thought blocking, word finding, increased response latency and inability to answer more open, less structured questions. Describes mood as labile ranging intraday from overly happy/euphoric to depressed and anxious. Does have paranoid delusions that are more prominent at hs (?c/w delirium, atop his baseline psychosis). Unable to answer Q re status of CAH becoming almost momentarily fixed in his gaze downward and ultimately beginning, many seconds later, to respond in a non sensical/disorganized fashion. Will cont to hold Li one more night, then maybe restart at lower dose. Will hold ECT tomorrow. Cloz back down to 100mg with levels pnd. Perfects storm of acute ECT--with its cognitive SEs and increased permeability of BBB-coupled with delerogenic meds with greater CONSUMER AFFAIRS DIRECTOR penetration (Li and Cloz), contributed to delirium. No discharge tomorrow given this clinical event. 12/07/17 14:21 Met with patient and parents today. He is much improved in terms of delirium as of today. Discussed virtue of continueing acute ECT along with Cloz into next week but that we will hold Li for duration of acute tx. Pt still expressing some concerns for own safety if out of the security of [place]. Pt feeling "Up " during visit and some inappropriate laughter was noted. He was not otherwise engaged in visit, and most of the discussion was btw parents and ghost writer 12/11/17 13:35 Pt interviewed today, one day post last ECT. He is A O times 3. Still with increased response latency, especially when asked open ended question pertaining to his mood or psychotic symptoms. Less so for emotionally neutral topics or more structured questions. Presently, feels that CAH are in the background by states that "the plot goes that they [the CAH] will come back in the real world" describing his concern that he is still quite fragile and susceptible to increased psychotic symptoms under the stressors of beiing out of hospital. Moods is likewise presently not overtly manic or depressed. He has no ego-syntonic desire to kill himself at present. In retrospecting over last 24 hours--limited in his ability to do so by virtue of STM impact of ECT/recent delirium--he feels that he had had some mood lability with arguably manic bouts involving graniosity and expansive mood. Plan is to do at least two more acute ECTs inpt, while continueing to hold Li and keep Cloz at 100. Post acute ECT, Li to be restarted, and Cloz to be titrated higher given low level. 12/13/17 15:58 Pt apparently has incorporated me into a paranoid delusional system. His "observing ego" is aware that there is no rational basis for idea but he feels it nonetheless. I queried whether it will be an impedement in his trusting my suggestions as his psychiatrist. He indicated not. I shared lengthy discussion I had had with Dr Perez about re-starting DEPakote. He agrees. Will need to decrease home dosage of LMT. Will start with low dose so as not to interfere markedly with ECT efficacy. He is unkempt, odd, intermittant in eye contact, with increased response latency. Mood remains labile, per pt. +AH yet denies intense CAH with coaxing of him to self harm while on unit, but still with fear of that happening if not here. 12/18/17 11:31 Pt is seen in room, where he was upright in bed, not sleeping mid morning. He is A and O x3. No evidence of delirium. He was less delayed in respose time today as well, and showed insight into the delusional material reported. Reports some new delusional material re his voices becoming the "treatment team " and starting to exert influence over his treatment course. He bemoans dramatic amnesia for last month or longer, but responded to reassurance that that is expected from ECT and his illness exacerbation itself. Tolerating med changes without C/O. Will increase CLoz today to 150 mg as we are holding off on ECT Sunday. Checking levels. This episode is proving quite refractory to med and acute ECT both, with the limiting factor of confusional states and pronounced STM effects from the confluence of both treatment modalities. I shared with him that two options are available to him: first is to reduce ECT frequency and maximize med dosing. Second, it to clear all meds temporarily whilst instituting further 3x/week ECT (with the theory that the ECT efficacy is being partly reduced by his remaining on AED meds and meds that increase cognitive impact, such as Li). We are to attempt the first option first with his consent, which was provided. 12/19/17 13:23 Li level .6, VPA 42, LMT level pnd. No SE with meds noted by patient. C/O of STM effect, most likely due primarily to ECT. SOme ongoing increased response latency/thought blocking. Cont. Med unchanged for now. ECT for Sunday. 12/20/17 09:00 Pt interviewed while eating breakfast. Appreciated Emailed alert from staff on 3N re his delayed presentation last evening (post Cloz dose but pre night meds) and strange, illogical statements made about "G FOrces" and "Quinonez Rays". He has limited recollection of event of last evening. This MAY speak to on going confusional states, c/w delirium due to "perfect storm" of acute ECT and his psychotropic meds. Will delay further acute ECT and concentrate on his med regimen for now given the confusion (which makes the it impossible to assess the level of his psychosis and mood symptoms). I will also hold off on increasing Cloz dose yet given its anticholinergic SEs, but will re check a Cloz level tomarrow AM 12/21/17 15:24 Pt interviewed in mid afternoon in his room, where he way lying in bed with blanket covering him, but not asleep, not reading or writing. He brought up that he is still feeling that he is being surveyed yet has some insight into the delusional nature of this belief. Mood is presently not very depressed, anxious or agitated. No ego syntonic desire to self harm and no recent CAH to do so. Some increase in response latency, but less so than it had been. Disheveled and unkempt, with some impaired relatedness. LMT level 3.4. CLOZ level pnd. No significant SEs described. May nonetheless wait on CLoz level to decide about how much more to titrate. Pt does wish to have an ECT treatment sunday. He feels safe to try AG with staff/family 12/25/17 15:46 Pt remains with blunted affect, slowed response time, PMR and on going paranoia and increased AH lilibeth in evenings. He sleeps with light on for that reason. No significant SE with recent increase in CLoz and Depakote. Cloz level still quite low (187) reflective of 150 mg. Had increased to 200 yesterday, but will push to 250 tonight given lack of severe sedation or orthostatic symptoms. VSS. WBC/ANC wnl. No CAH thankfully. Pt to let Parents help him assess his readiness to try discharge. At this moment, pt endorses a great deal of anxiety about leaving due to on going psychosis even in absence of CAH for him to harm self. May use opportunity of his continued stay to push the Cloz dose more aggressively than one might do as outpt 12/26/17 13:43 Pt remains disheveled, with pronounced response latency (admitting to responding to something described vaguely but clearly meaning AH), with PMR, on going paranoid delusions most prominent at night and fear of discharge as "they are out THERE" referring to some entity or "people" who are aiming to harm him in some way and cant quite "get in here" referring to unit. Plan is to titrate CLoz, which he is tolerating without profound sedation or orthostatis, hyperthermia, ANC decreases or sialorrhe. WIll increase dose to 300 mg tonight and re check level in two days.. Keep ECT weekly but may choose to resume acute ECT and terminate all meds except Cloz if med regimen, with only weekly ECT, is falling short of aiding his psychosis and AH. 12/27/17 13:23 Pt reported no significant SE with clozaril, but after review of notes it appears as if he had a post CLoz dose period of tachycardia, drooling and disorientation and gait instability. This indicates that we need to halt the titration of that med, and indeed I will re-decrease it back to 250 mg and check a level. He was A and O x 3this am, and reports no nocturnal drooling. VSS this am, with pulse high for him but below 100 (it reached 130 last night). Pt still experiencing hs paranoia and AH. I might also change the CLoz dosing back to qhs rather than q dinner, as it has not helped the psychosis he seems have in evening but increased his SEs during a period of time when he is not yet ready to go to bed. 12/28/17 19:03 Today, pt is more clearly alert and engaged with improvement in response latency. Still disheveled, impoverished, montone and soft in speech. Better related and improved eye contact. Still endorses predominant nighttime paranoia and AH. No CAH to harm self. He can recollect activities he did last evening, post dinner and before bed indicating no amnesia (that would be c/w delirium/confusional state). Will hold med doses unchanged over weekend as rapid increase in CLozaril likely contributed to confusion). Pt wishes to do ECT sunday. Left with mother with update on pt and solicited her feedback as to how she thinks he is doing. 12/28/17 19:08 01/01/18 13:52 [place] [facility] [place] and today. She sees some progress as of last evening with improvement in response latency, mood stability, absence of gopal CAH, but on going paranoia, prominent at hs. I agree with her observations. CLoz level at 250 mg is improved and just shy of target. However, I will demur from further increases at this point. COmmunicated with Dr Perez who will likely oversee the next (and likely last) step in increasing CLoz to 300 mg. Plan is tentatively to dishcarge on Sunday post ECT assuming no overt change for the worse nor any events c/w delilrium 01/02/18 15:10 Met with pt who was reading a [employer] magazine in room this afternoon. Affect brighter, better related, notably better with delayed response latency, yet expressing some anxiety about discharge. He fears that his paranoia,in particular, will be exacerbated by the stress of "being out there". There is some appropriateness to this anticipatory anxiety, given his length of stay and recalcitrance of those symptoms. I discussed the option of going up that last amount on his CLozapine, to 300 mg, while still here to 1) evaluate for any untoward effects while under medical supervision and 2) bolster his antipsychotic regimen to meet this worry about increased symptoms from stress of being in the "real world". His level, less than 450, would warrant such a change and he is likely more adapted to the med at this point than when I attempted to more quickly titrate to 300 mg. 01/03/18 11:26 Pt interviewed around 9 am in his room. He way lying down, not asleep. disheveled, but more easily relatable and still with less response latency. He does have an increase in "tiredness" with last night's increase to 300 mg of his CLoz. No orthostasis. VSS. Afebrile. Is still anxious about discharge but wishes to attempt it tomorrow. Family in agreement. Dr Perez informed. Objective: Vital Signs Temp Pulse Resp BP Pulse Ox 36.6 C 99 20 129/79 H 96 01/03/18 06:00 01/03/18 06:00 01/03/18 06:00 01/03/18 06:00 01/03/18 06:00 Laboratory Results 01/01/18 07:00 12/19/17 06:00 ICD10 Worksheet Patient Problems: Problems Problem Status Onset Schizoaffective disorder Acute Suicidal ideation Acute Acute psychosis Acute Forearm laceration involving tendon Acute Marijuana abuse Acute Self-inflicted injury Acute
--- NOTE | 2018-01-03 14:59 | ASMTCMCOM ---
CM Note CM Note Notes: CC called [facility] and left message for Dr. Azevedo regarding client's out-paitnet follow up care, if discharged tomorrow, etc. MOC noted that she could be here after 5pm, etc. CC waiting to hear back from [facility] to update his discharge summary checklist, etc. Client remains doing better than previous days. Date Signed: 01/03/2018 02:58 PM Electronically Signed By:Sonido Perez
--- NOTE | 2018-01-03 15:07 | ASMTBHDC ---
Notes Note: Notes: Pt. reports doing "alright". Pt. reports eating and sleeping well. Pt. stated he spent most of the morning in bed because "feels comfortable". Pt. reports showering today. Pt. denied SI, HI, and VH. Pt. reports AH as more "intrusive thoughts. Thinking about hearing a voice. It's one step removed from AH". Pt. reported paranoia about "people wanting to hurt me, teach me a lesson, or put me out of commission". Pt. reports feeling ready to go home. Pt. stated he will stay at his parents house and will continue with [facility]. Pt. requested information about how to prepare for outpatient ECT (i.e. what medications to take and not take the night before ECT). Pt. presents as alert, calm, with a mostly pleasant demeanor, and good eye contact. Staff report pt. sleeping 8 hours. CC spoke with MD Lopez. stated pt. will discharge on Sunday01/04/18 after his ECT treatment at 3:00pm. Date Signed: 01/03/2018 03:07 PM Electronically Signed By:Indigo Donald
[2018-01-03] MEDS: DIVALPROEX ER 250 MG TAB PO SCH (19:17)
[2018-01-03] MEDS: lamoTRIgine 100 MG TAB PO SCH (19:17)
[2018-01-03] MEDS: METHYLFOLATE 15 MG PO SCH (19:17)
[2018-01-03] MEDS: LITHIUM CARBONATE ER 300 MG TAB PO SCH (19:18)
[2018-01-03] MEDS: CHOLECALCIFEROL VIT D3 1,000 UNITS TAB PO SCH (20:53)
[2018-01-03] MEDS: cloZAPine 100 MG TAB PO SCH (20:53)
[2018-01-04] MEDS ORDERED: THEOPHYLLINE ORAL SOLUTION 80 MG/15 ML UDCUP PO ONE (07:35)
[2018-01-04] MEDS ORDERED: CITRIC ACID/SODIUM CITRATE 30 ML UDCUP PO PRN (08:52)
[2018-01-04] MEDS ORDERED: NS 1,000 ML IV PRN (08:52)
[2018-01-04] MEDS ORDERED: ONDANSETRON DISINTEGRATING 4 MG TAB PO PRN (08:52)
[2018-01-04] MEDS ORDERED: ONDANSETRON 4 MG/2 ML VIAL ONE (08:56)
[2018-01-04] MEDS ORDERED: MIDAZOLAM 2 MG/2 ML VIAL ONE (08:56)
[2018-01-04] MEDS ORDERED: GLYCOPYRROLATE 0.2 MG/1 ML VIAL ONE (08:56)
[2018-01-04] MEDS ORDERED: fentaNYL 100 MCG/2 ML INJ ONE (08:56)
[2018-01-04] MEDS ORDERED: ETOMIDATE 20 MG/10 ML VIAL ONE (08:56)
[2018-01-04] MEDS ORDERED: DIVALPROEX ER 250 MG TAB PO SCH (08:56)
[2018-01-04] MEDS ORDERED: SUCCINYLCHOLINE CHLORIDE 200 MG/10 ML VIAL ONE (08:57)
[2018-01-04] MEDS ORDERED: ROCURONIUM 50 MG/5 ML VIAL ONE (08:57)
[2018-01-04] MEDS ORDERED: CITRIC ACID/SODIUM CITRATE 30 ML UDCUP ONE (09:09)
[2018-01-04] MEDS ORDERED: ONDANSETRON DISINTEGRATING 4 MG TAB ONE (09:09)
--- NOTE | 2018-01-04 09:53 | PDANEPAE ---
ECT Pre Anesthetic Evaluation Allergies/Adverse Reactions: ketamine Allergy (Verified 11/20/17 22:10) nausea/vomiting morphine Allergy (Verified 11/20/17 22:10) psychosis oxycodone Allergy (Verified 11/20/17 22:10) psychosis Patient ID confirmed: Yes H&P reviewed: Yes Pre-anesthetic history reviewed: Yes Heart: regular rate and rhythym, no murmur, rub, or gallop Lungs: no respiratory distress, clear to auscultation Mallampati Score: Class 1 ASA Status: I Home Medications: Medication Instructions Recorded L-Methylfolate 15m Cap 15 mg PO HS 11/21/17 Cholecalciferol Vit D3 [Vitamin D3 1,000 units PO HS #30 tab 01/04/18 (*)] [place] Carbonate ER [Lithobid 300 900 mg PO HS #90 tab 01/04/18 mg (*)] cloZAPine [Clozaril (*)] 300 mg PO HS #90 tab 01/04/18 lamoTRIgine [LamICTAL 100 MG (*)] 100 mg PO HS #30 tab 01/04/18 Medication review: completed Patient interviewed: Yes Patient examined: Yes Anesthetic plan discussed with patient: Yes Anesthetic risks discussed with patient: Yes ECT Pre-Anesthetic History - Height & Weight Height: 180.34 cm Weight: 74.559 kg BMI: 22.94 - Anesthesia History Hx Anesthesia Complications (with details): None Family Hx Anesthesia Complications: None - Medications In the Past 6 Months the Patient Has Taken: Aspirin - Tobacco/Alcohol/Drug Use Smoking Status: Current every day smoker Hx Drug/Substance Abuse: No Alcohol Use: Yes - Prior Surgeries/Hospitalizations Prior Surgeries: Fracture repair of left femur - Pulmonary History ECT Hx Asthma: No Hx Abnormal Chest X-Ray: No Hx Oxygen in Use at Home: No - Cardiovascular History Hx Hypertension: No Currently Uses Hypertension Medication: No Hx Arrhythmias: No Hx Palpitations: No Hx Chest Pain: No Hx Coronary Artery / Peripheral Vascular Disease: No Hx Blood Clot: No - Neurologic History Hx Cerebrovascular Accident: No Hx CT Scan Or MRI Of The Brain: No Hx Epilepsy, Convulsions, Seizures, Or Blackouts: No Hx Frequent Or Severe Headaches: No Hx Numbness: No Hx Neurologic Disorder: No - Dental History Current Dental Issues: None Dental History Comment: Pt. answered yes to "dentures, caps, bridges or braces. " Discussed with Dr. Eubanks. Will document specifics at next evaluation. Pt states he has one fake tooth. - Endocrine History Hx Diabetes: No Current Daily Insulin Injections: No Hx Thyroid Problems: No - Renal/Urologic History Hx Renal Disorders: No Hx Urinary Tract Problems: No - Liver History Hx Hepatic Disorders: No - Cancer History Hx Cancer: No - Hematology History Hx Unexplained Bleeding Of Any Type: No Hx Ease Of Bruising: No Hx Anemia: No - Gastrointestinal History Hx Gastroesophogeal Reflux Disease: No Hx Ulcers: No Hx Hiatal Hernia: No Hx Difficulty Swallowing: No - Musculoskeletal Hisory Hx Chronic Pain: No Hx Arthritis: No - Opthalmic History Hx Glaucoma: No Visual Assistive Devices: Contacts Hx Opthalmic Disorders: No - Other Health History Physical Disabililty: No Recent Cough, Cold, or Fever: No Significant Weight Loss In The Last 4 Months: No Possible the Patient Might be : No
--- NOTE | 2018-01-04 10:10 | PDECTPN ---
ECT Progress Note Patient Problems: Problems Problem Status Onset Code Schizoaffective disorder Acute F25.9 Suicidal ideation Acute R45.851 Acute psychosis Acute F23 Forearm laceration involving tendon Acute S51.819A, S56.929A Marijuana abuse Acute F12.10 Self-inflicted injury Acute Z72.89 Date: 01/04/18 ECT provider: Gomez Lopez Anesthesia: Justin Eubanks Stimulus dose (%): 100 Pulse width: 0.5 ECT EMG (sec): 26 ECT EEG (sec): 49 ECT treatment type: bilateral QIDS-SR Total Score: 5 QIDS-SR Question #12 Score: 0 MMSE Total Score (Max = 21): 21 Next ECT date: 01/11/18 Next ECT time: 13:00 O/P psychiatrist follow up with DrReva: Jaron Perez O/P psychiatrist follow up: phone, voice message Home medications: Medication Instructions Recorded L-Methylfolate 15m Cap 15 mg PO HS 11/21/17 Cholecalciferol Vit D3 [Vitamin D3 1,000 units PO HS #30 tab 01/04/18 (*)] [place] Carbonate ER [Lithobid 300 900 mg PO HS #90 tab 01/04/18 mg (*)] cloZAPine [Clozaril (*)] 300 mg PO HS #90 tab 01/04/18 lamoTRIgine [LamICTAL 100 MG (*)] 100 mg PO HS #30 tab 01/04/18 Medication review: completed Current treatment plan: maintenance, increased frequency cycle d/t exacerbation of symptoms Treatment plan frequency: 1 time per week ECT narrative: Reviewed inpatient chart. Inteviewed pt. He still c/o of paranioa and referential ideas, some AH and mood that is marked by some expansive, grandiose themes. No overt signs of veronica or depression however and QIDS was 4. Intense CAH to hurt self is abated, but pt somewhat guarded when answering this. No sig SE with Cloz at 100 mg. Will titrate to 150 mg and check levels soon thereafter. Will discuss dispo options with pt and parents tomorrow. Cont acute B ECT as well. WBC wnl. VS stable without tachycardia or hyperpyrexia 12/10/17 reviewed notes from weekend. Delirium appears fully resolved. Pt scores MMSE 21/21, and his A and O x3. Has, as expected, unclear recollection of events of last week. Still with some mood lability and AH, and paranoia, most prominent at night. Will change cloz to dinner time to address this. Will re attempt ECT, in the absence of Li and will lower dose CLoz, with hopes of getting benefit without confusional state. WIll also hold any AED med the night before each tx (gabapentin and LMT). Indeed, will lower LMT for duration of acute ECT to ensure maximal seizure activity. After acute ECT is completed, will re-increase LMT, restart Li at prior dose and encourage further titration of Cloz given its low serum level 12/12 Pt remains impov, PMR, increased response latency.Still endorses hs paranoia and AH, yet not as intense or negative as it had been. Will proceed with acute ECT through Sunday, then consider re-start Li and increase Cloz with mECT done at a freq (ie, weekly) rate. Or, it may be necessary to proceed into next week with further acute ECT and hold off on med changes until completed. 12/14 Pt still quite paranoid, with notable response latency. Guarded re notion of typewriter ribbon winder being incorporated into his delusional system. No SE noted with first depakote dose. Plan to do ECT into next week, and cont meds--including depakote- -holding doses of any AED the night prior to ECT 12/17 Received vm from mother indicating some delirium noted; pt remains with some paranoid over valued ideas and includes this typewriter ribbon winder in a delusional system involving surveying him. Will hold off on ECT sun and do 2x/week this week, allowing for meds to be Rx'ed with less interruption as well. Will decrease Li to 900 mg, as Depakote on board at 1000 mg (will check level on Sun). LMT to be kept at 100 mg, down from 275, due to interaction with VPA. Cloz will remains at 100 mg, but has room for improvement in terms of blood level once ECT is being done at 1x/week or less frequently (increased chance for cognitive impact with its anticholinergic SE when coupled with acute ECT). 12/[address] Christy. Pt had better weekend. Mood a bit "up" pertaining to hypomanic symptoms, and still having evening time paranoia. But, clearer in terms of cognition with no agititation, SI, or CAH coaxing him to harm self. Will increase CLoz ahead of blood level to 200 mg, as he is tolerating it well and will likely need such an increase given very low level at 100 mg. Will also increase Depakote to 1250 given level of 42 on 1000 mg.. WIll discuss discharge possiblity for this week if symptoms remains overall in upward trend. Plan to keep ECT to weekly for now. 12/31 Read Weekend coverage notes and received lengthy VM from mother, with whom typewriter ribbon winder will speak today. Pt overall improving in cognition, and a bit less repsonse latency, able to stay on topic, per mom, even if there was a delay in response. However, he got derailed and more psychotic from peer on unit uttering the profanity, "Suck me #$%" to patient as he walked by. He still has hs paranoia. This is expressed as some worry re discharge as he feels somehow these entities could become more prominent outside hospital. 01/04 Pt tolerated increase CLoz without confusion or oversedation or dizziness. Still with paranoia that is prominent in evening but no CAH and mood is stable and close to euthymic. Better in terms of delayed response time. Ready for discharge.
--- NOTE | 2018-01-04 10:45 | ASMTBHDC ---
Notes Note: Notes: CC called and spoke with Khushbu at [facility] () notified staff at that he will likely discharge at the end of this week, Thursday 12/14 following a family meeting @ 12:30PM. CC left a message for Ariana Anderson, OP therapist, to schedule a therapy appointment for the patient. Follow Up with: [facility] [id number] [place] [address] O#[phone] Perez on January 10 @ noon. Appointment with Ariana Anderson on January 10 @ noon. Date Signed: 01/04/2018 10:44 AM Electronically Signed By:Shwetha Jurado
--- NOTE | 2018-01-04 11:29 | ASMTCMCOM ---
CM Note CM Note Notes: CC checked in with ct. ahead of his discharge. Ct. was wheeled into his room after completing ECT session as CC entered his room. Ct. was having a hard time focusing and answering questions. CC called parents who confirmed that [facility] will pick ct. up this afternoon at around 5:30pm. Ct. has F/U appointments at [facility] on 01/10/[address] Lopez at 01/11/18 at 1:00pm Date Signed: 01/04/2018 11:28 AM Electronically Signed By:Dipika Rose
[2018-01-04 14:06] VITALS: BP 121/78
--- NOTE | 2018-01-04 19:43 | GDS ---
IDENTIFYING DATA: This patient is a 27-year-old white male, well known to this health technical writer who has been t reating him with maintenance ECT for schizoaffective disorder. He is a long-time patient of [facility], most recently working with Catherine Perez MD. He has multiple prior hospitalizations. He was admitted on 11/21/2017, and discharged 01/04/2018. REASON FOR ADMISSION: The patient presented to the hospital due to increasing command auditory hallu cinations telling him to cut himself. He has a history of making deep, self-inflicted wounds on the coaxing of such hallucinations. It was determined that his medications, some of which were new, such as Vraylar were proving ineffective, as were his maintenance ECT treatments. His mood also seemed t o be dysphoric, but perhaps also marked by cycling into mixed and hypomanic states as well. ROUTINE PHYSICAL EXAM: Performed by Carlos Riggs which reveals: 1. Mental health issues, pending further evaluation and management per Psychiatry. 2. Anemia of unclear etiology. It is minor and he is asymptomatic. Lamotrigine may contribute, but I will leave this assessment to Psychiatry. He can have further evaluation by his primary care prov ider as an outpatient. 3. Tobacco dependence syndrome. He was encouraged to quit smoking. ROUTINE LAB WORK: As clozapine has been re-initiated, the patient has had weekly complete blood coun ts which have revealed normal white blood cell counts and absolute neutrophil counts. The mild anemi a that Dr. Riggs's spoke of was only seen with his very 1st complete blood count, and not on any sub sequent ones. Bio Chem profile was within normal limits. Hemoglobin A1c was 5.2. Calcium was summer l. Triglycerides were 101 and cholesterol was 112, LDL cholesterol was 43 and HDL was 49. His urine drug screen was negative. [place] level reflective of a dose of 900 mg was 0.7. Valproic acid leve l reflective of a dose of 1250 mg was 39.4, and lamotrigine level while on Depakote and at 100 mg had a level of 3.2. His clozapine level 250 mg was 293, with an optimal level being greater than 350, a nd his combination of clozapine and norclozapine was 376, with that optimal level being greater than 450. HOSPITAL COURSE: In sum, this patient had a very lengthy hospital stay with aggressive interventions involving 1st acute ECT followed by maintenance treatments and a reshuffling of his medication regim en with a notable initiation of clozapine, medication that he had done well on historically. The ini tial phase of his hospital stay involved titrating the clozapine while maintaining the patient's lith ium, lamotrigine and gabapentin. However, in early December, the patient developed a short-lived episo de of delirium that led to needing to hold off on acute ECT and rethink his medication regimen. It w as decided that the acute ECT should be put on hold and he proceeded with weekly treatments while the health technical writer focused mostly on titrating medications. In discussion with Dr. Perez, it was decided also to introduce Depakote, medication he had also done well on in the past. The health technical writer reduced the Lami ctal dose, given the initiation of Depakote and his lithium dose as well while titrating his clozapin e in the context of his not doing 3 times per week ECT. It was felt that the acute ECT coupled with his medications, most notably lithium and the anticholinergic clozapine, contributed to the delirium. Since discontinuing the acute ECT and titrating the medications as just described, the patient berta ined fairly free of any confusional states. His moods clearly seemed to stabilize and respond positi vely over the last 2-3 weeks, wherein he described fewer episodes consistent with veroinca or depression and was more euthymic. He also had diminishment of hallucinations and especially the most concernin g type, command auditory hallucinations. These had totally disappeared by the end of the hospital st ay, however, what did remain intractable was paranoid overvalued ideas with some low-grade auditory h allucinations, both of which seemed to be most prominent at night. It is this health technical writer's opinion that those symptoms will be the slowest to "seal over," and will respond best to clozapine which has only recently been titrated toward a therapeutic blood level with good toleration. His white counts have remained stable. His vital signs are stable. He is afebrile and not tachycardic. He has mild drool ing and some sedation, but no signs of orthostasis. There is no rash evidence from lamotrigine. No GI disturbance from lithium or Depakote. No evidence of extrapyramidal side effects or tardive dyski nesia. He is future oriented and hopeful, albeit anxious about discharge given his ongoing paranoia. He is concerned that that symptom may worsen in the "real world." However, he will have strict 24/ 7 supervision from his family for at least a week or 2, and I am more hopeful that he will adapt posi tively to the transition out of the hospital. I foresee no need for any further medication changes i n the near future, but this will be managed by Dr. Perez going forward. Given his clozapine levels , nearly therapeutic at 250 mg, I would expect it to be in the therapeutic range at 300 mg. There is probably some room for further titration if need be however. He has been successfully tapered off h is gabapentin. He is also off Vraylar given its putative lack of benefit for him, and possible exace rbation of mood cycling. DISCHARGE MEDICATION: 1. Vitamin D3 1000 units p.o. daily. 2. Clozapine 300 mg p.o. at bedtime. 3. Depakote ER 1500 mg p.o. at bedtime. 4. L-methylfolate 15 mg p.o. at bedtime. 5. Lamotrigine 100 mg p.o. at bedtime. 6. Kilmarnock carbonate 900 mg p.o. at bedtime. DISPOSITION: The patient will return home to the /supervision from his parents over the next 1-2 w eeks. This is for the cognitive side effects from the ECT, and to monitor his new medication regimen , and given his anxiety around ongoing paranoia and mild auditory hallucinations. I spoke at length with the patient's mother who is aware to monitor [place] for increase or change in suicidal thinking and to ask directly about the presence of command auditory hallucinations. He should not drive unti l otherwise specified. As a safety precaution, all lethal means of self-harm such as firearms, medic ation of any sort or sharp objects should be removed from the home or patient's access. The patient is to follow up with Dr. Perez at [facility] and to see me in 5 days for his 1st maintenance ECT treatment. He will require weekly CBCs for another 5 months, then every other week for 6 months , then monthly thereafter. DISCHARGE DIAGNOSIS: Edwards I: Schizoaffective disorder, bipolar type. Edwards II: History of cannabis use disorder. Edwards III: Noncontributory. Edwards IV: Moderate. Edwards V: 48. /[id number]/MODL
--- NOTE | 2018-01-11 12:25 | ASDISCHSUM ---
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 Signed By:Sonido Perez [facility] CM Progress Note CM Note CM Note Notes: CC met with pt. briefly today. Pt. reports doing okay. Pt. asked CC where is wallet was. CC explained to pt. that his parents took his wallet and phone home. Pt. appeared confused after receiving ECT at 10am today. Pt. presents as alert, calm, confused at times, pleasant, polite, and with good eye contact. Staff report pt. sleeping 9 hours and being medication compliant. Date Signed: 12/31/2017 02:29 PM Electronically Signed By:Indigo Donald [facility] CM Progress Note CM Note CM Note Notes: Client presents as brighter than previous days. He still has some delays in speech; however, this policy writer typist noticed that it is less profound than before. Additionally, client denies any feelings of anxiety, depression, AVH and/or S/I-H/I. Client presents as calm, alert, affect is mostly appropriate to situation (eating breaksfast) with others. Moreover, client suggests receiving 10+ hours of sleep last night, while describing his mood as "still a little tired." Date Signed: 01/02/2018 01:32 PM Electronically Signed By:Sonido Perez [facility] Progress Note CM Note CM Note Notes: CC called [facility] and left message for Dr. Azevedo regarding client's out-paitnet follow up care, if discharged tomorrow, etc. [facility] after 5[place], etc. CC waiting to hear back from [facility] to update his discharge summary checklist, etc. Client remains doing better than previous days. Date Signed: 01/03/2018 02:58 PM Electronically Signed By:Sonido Perez [facility] Discharge Planning Note Notes Note: Notes: Pt. reports doing "alright". Pt. reports eating and sleeping well. Pt. stated he spent most of the morning in bed because "feels comfortable". Pt. reports showering today. Pt. denied SI, HI, and VH. Pt. reports AH as more "intrusive thoughts. Thinking about hearing a voice. It's one step removed from AH". Pt. reported paranoia about "people wanting to hurt me, teach me a lesson, or put me out of commission". Pt. reports feeling ready to go home. Pt. stated he will stay at his parents house and will continue with [facility]. Pt. requested information about how to prepare for outpatient ECT (i.e. what medications to take and not take the night before ECT). Pt. presents as alert, calm, with a mostly pleasant demeanor, and good eye contact. Staff report pt. sleeping 8 hours. CC spoke with MD Lopez. stated pt. will discharge on Sunday01/04/18 after his ECT treatment at 3:00pm. Date Signed: 01/03/2018 03:07 PM Electronically Signed By:Indigo Donald [facility] CM Progress Note CM Note CM Note Notes: CC checked in with ct. ahead of his discharge. Ct. was wheeled into his room after completing ECT session as CC entered his room. Ct. was having a hard time focusing and answering questions. CC called parents who confirmed that [facility] [place] this afternoon at around 5:30pm. Ct. has F/U appointments at [facility] on 01/10/[address] Lopez at 01/11/18 at 1:00pm Date Signed: 01/04/2018 11:28 AM Electronically Signed By:Dipika Rose Intervention Information
== END 2018-01-04 17:25 | disposition home or self-care (01) | DRG 885 ==
LOC: BBEH 11-21 09:05
PROVIDERS: ADMIT Psychiatry & Neurology Psychiatry; ATTEND Psychiatry & Neurology Psychiatry
PROC: GZB2ZZZ Electroconvulsive Therapy, Bilateral-Single Seizure (ICD-10-PCS; principal; 2017-11-23)
DX: F25.0 Schizoaffective disorder, bipolar type (principal); Z91.5 Personal history of self-harm
CPT/HCPCS: 80159-90; 80175-90; 80305; G0480; J0330; J2250; J2405; J3010